=== PATIENT | male | born 1995 | race Hispanic/Latino ===

== ENCOUNTER 2021-01-10 13:05 | Emergency (ER) | payer OTHER, SELFPAY ==
--- NOTE | ~2021-01-10 | CT_ITS ---
EXAMINATION: CT abdomen pelvis w con DATE: 01/10/2021 18:09 INDICATION: Generalized abdominal pain. TECHNIQUE: Computed tomography (CT) of the abdomen and pelvis was performed with 100 mL Omnipaque 350 intravenous contrast. Automated exposure control and iterative reconstruction technique were employe d. The dose-length product was 1025.59 mGy-cm. COMPARISON: None. FINDINGS: The visualized portions of the lung bases are clear without pneumonia or pleural effusion. The heart size is normal. No pericardial effusion. There is diffuse hepatic steatosis. The gallbladde r, spleen, pancreas, adrenal glands, and kidneys are normal. There is diverticulosis of the colon wit hout evidence of diverticulitis. No dilated loops of bowel. The appendix is normal. There are no path ologically enlarged lymph nodes. There is no free intraperitoneal fluid. The bones are unremarkable. IMPRESSION: 1. Diffuse hepatic steatosis. Reviewed, dictated and finalized at location A.
[2021-01-10 13:34] VITALS: BP 149/81; PULSE 99; RESP 18; TEMP 36.1; O2SAT 98
[2021-01-10 13:48] LABS: Basophils Absolute Auto 0.1 K/mm3 (0.0-0.1); Basophils Percent Auto 0.9 % (0.2-1.2); Eosinophils Absolute Auto 0.2 K/mm3 (0-0.3); Eosinophils Percent Auto 1.7 % (0-4.4); Hemoglobin 15.6 g/dL (14.0-18.0); Immature Granulocyte Absolute 0.06 K/mm3 (0.00-0.031); Immature Granulocyte Percent A 0.5 % (0-0.5); Lymphocytes Absolute Auto 2.23 K/mm3 (0.9-3.2); Lymphocytes Percent Auto 17.7 % (18.3-44.2); Mean Corpuscular HGB Conc 34.7 g/dl (32-36); Mean Corpuscular Hemoglobin 30.9 pg (26-34); Mean Corpuscular Volume 89.1 fl (80-100); Mean Platelet Volume 10.1 fl (7.4-10.4); Monocytes Absolute Auto 0.6 K/mm3 (0.1-0.6); Monocytes Percent Auto 4.4 % (2.6-8.5); Neutrophils Absolute Auto 9.4 K/mm3 (1.3-6.7); Neutrophils Percent Auto 74.8 % (45.5-73.1); Platelet Count Result 290 k/mm3 (150-375); Red Blood Count 5.05 M/mm3 (4.6-6.20); Red Cell Distribution Width 12.1 % (11.5-14.5); White Blood Count 12.6 K/mm3 (4.5-10.0)
[2021-01-10 14:01] LABS: Alanine Aminotransferase 92 U/L (4-50); Albumin Level 4.9 g/dL (3.5-5.1); Alkaline Phosphatase 132 U/L (38-126); Anion Gap 13 mmol/L (8-16); Aspartate Amino Transferase 72 U/L (17-59); Bilirubin,Total 1.1 mg/dL (0.2-1.3); Blood Urea Nitrogen 14 mg/dL (9-20); Calcium 9.6 mg/dL (8.4-10.2); Carbon Dioxide 27 mmol/L (22-30); Chloride 103 mmol/L (98-107); Estimated CRCL calculation 187 ml/min; Estimated Glomerular Filt Rate > 60; Glucose 133 mg/dL (75-110); Lipase 34 U/L (23-300); Sodium 143 mmol/L (137-145)
[2021-01-10 17:16] VITALS: BP 143/104; PULSE 103; RESP 20; O2SAT 100
[2021-01-10 17:28] LABS: Add Urine Microscopic? YES; Appearance Urine Clear (Clear); Bacteria Urine Trace /hpf; Bilirubin Urine 1+ (Negative); Blood Urine Negative (Negative); Color Urine Amber (Yellow); Glucose Urine UA Negative (Negative); Ketones Urine Trace mg/dL (Negative); Leukocyte Esterase Ur Negative LEU/UL (Negative); Mucus Urine Heavy /lpf; Nitrate Urine Negative (Negative); Protein Urine 3+ mg/dL (Negative); WBC Urine 0-3 /hpf
[2021-01-10 17:34] LABS: Specific Grav Ur 1.032 (1.001-1.035)
--- NOTE | 2021-01-10 17:37 | ED.NAVMDI ---
HPI - Nausea/Vomiting/Diarrhea General Chief complaint: Nausea/Vomiting/Diarrhea Stated complaint: rash, posion ermias, nausea Time Seen by Provider: 01/10/21 17:15 Source: patient and RN notes reviewed Mode of arrival: ambulatory Limitations: no limitations History of Present Illness HPI Narrative: Patient is 25 years old male presents with nausea, frequent vomiting started early this morning with abdominal soreness. Patient denies any fever, chills, diarrhea, having similar symptoms in the past. Patient also been working in the yard yesterday with itching skin rash, similar symptoms secondary to poison ermias. Patient denies any fever, chest pain or shortness of breath. Related Data Allergies Allergy/AdvReac Type Severity Reaction Status Date / Time No Known Allergies Allergy Verified 01/10/21 17:18 Review of Systems Review of Systems: Narrative: CONSTITUTIONAL: Denies fever, chills, or sweats. EYES: Denies visual changes, redness, or discharge. ENT: Denies rhinorrhea, congestion, sore throat, or otalgia. CARDIOVASCULAR: Denies chest pain, palpitations, or edema. RESPIRATORY: Denies cough or dyspnea. GASTROINTESTINAL: Denies abdominal pain, nausea, vomiting, or diarrhea. GENITOURINARY: Denies dysuria or hematuria. SKIN: Denies rash or itching. MUSCULOSKELETAL: Denies back pain, joint pain, or myalgia. NEUROLOGIC: Denies headache, numbness, or weakness. PSYCHIATRIC: Denies anxiety or depression. Exam Narrative: Exam Narrative: General appearance: Well-developed, well-nourished Skin: Normal color, scattered hives Head: Normocephalic, nontraumatic Eyes: Clear conjunctiva ENT: Oropharynx normal, ears normal, nose normal Neck: Supple, nontender Chest and respiratory: Airway patent, no respiratory distress, no accessory muscle use Heart: Regular rate/rhythm Abdomen: Soft, mild diffuse tenderness, no organomegaly, quiet bowel sounds Vascular: Normal peripheral pulses, normal capillary refill. Musculoskeletal: Normal range of motion, nontender back Neurologic: Alert and oriented ?3, [employer] is normal as tested, no gross motor deficit Course Course Emergency Course: Stable Vital Signs Vital signs: Vital Signs Temperature 36.1 C L 01/10/21 13:34 Pulse Rate 99 01/10/21 13:34 Respiratory Rate 18 01/10/21 13:34 Blood Pressure 149/81 H 01/10/21 13:34 Pulse Oximetry 98 01/10/21 13:34 Temperature 36.1 C L 01/10/21 13:34 Pulse Rate 103 H 01/10/21 17:16 Respiratory Rate 20 01/10/21 17:16 Blood Pressure 143/104 H 01/10/21 17:16 Pulse Oximetry 100 01/10/21 17:16 MDM - Nausea/Vomiting/Diarrhea MDM Narrative Medical decision making narrative: Abdominal pain, poison ermias exposure, Labs, CT abdomen pelvis with IV contrast, IV fluid ordered. Further plan to follow Differential Diagnosis Differential diagnosis: Likely food poisoning, gastroenteritis and dehydration Lab Data Result diagrams: 01/10/21 13:42 01/10/21 13:42 Labs: Lab Results 01/10/21 01/10/21 01/10/21 Range/Units 13:42 13:42 17:18 WBC 12.6 H (4.5-10.0) K/mm3 RBC 5.05 (4.6-6.20) M/mm3 Hgb 15.6 (14.0-18.0) g/dL Hct 45.0 (42.0-52.0) % MCV 89.1 (80-100) fl MCH 30.9 (26-34) pg MCHC 34.7 (32-36) g/dl RDW 12.1 (11.5-14.5) % Plt Count 290 (150-375) k/mm3 MPV 10.1 (7.4-10.4) fl Immature Gran % (Auto) 0.5 (0-0.5) % Neut % (Auto) 74.8 H (45.5-73.1) % Lymph % (Auto) 17.7 L (18.3-44.2) % Charles % (Auto) 4.4 (2.6-8.5) % Eos % (Auto) 1.7 (0-4.4) % Baso % (Auto) 0.9 (0.2-1.2) % Lymph # (Auto) 2.23 (0.9-3.2) K/mm3 Charles # (Auto) 0.6 (0.1-0.6) K/mm3 Eos
[2021-01-10] MEDS: SODIUM CHLORIDE 0.9% IV 1,000 ML 999 ML IV CONT (17:48)
== END 2021-01-10 19:06 | disposition home or self-care (01) ==
PROVIDERS: Emergency Provider Emergency Medicine
DX: L23.7 Allergic contact dermatitis due to plants, except food (principal); R11.2 Nausea with vomiting, unspecified; R19.7 Diarrhea, unspecified
CPT/HCPCS: 36415; 74177; 80053; 81001; 83690; 85025; 96360; 99284; J7030; Q9967

== ENCOUNTER 2025-04-09 21:46 | Inpatient (IN) | payer OTHER, SELFPAY ==
[2025-04-09] VITALS (12 sets, daily range): BP systolic 116–155; BP diastolic 80–102; PULSE 90–106; RESP 17–30; TEMP 36.4; O2SAT 97–100
--- NOTE | ~2025-04-09 | CT_ITS ---
EXAMINATION: CT abdomen pelvis w con DATE: 04/10/2025 00:34 INDICATION: Abdominal pain. Abnormal liver function tests. Nausea and vomiting. TECHNIQUE: Computed tomography (CT) of the abdomen and pelvis was performed with 100 mL Omnipaque 350 intravenous contrast. Automated exposure control and iterative reconstruction technique were employed. The dose-length product was 1230.58 mGy-cm. COMPARISON: CT abdomen and pelvis 01/10/2021 FINDINGS: The visualized portions of lung bases demonstrate mild atelectasis. No pleural effusion. The heart size is normal. No pericardial effusion. The liver demonstrates diffuse steatosis and surface nodularity, consistent with cirrhosis. There is a periumbilical portacaval shunt. The gallbladder is distended. The spleen, pancreas, adrenal glands, and kidneys are normal. There is diverticulosis of the colon without evidence of diverticulitis. There are no dilated loops of bowel. The appendix is normal. There are no pathologically enlarged lymph nodes. There is trace pelvic ascites. 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 There is mild thoracic spondylosis. IMPRESSION: 1. Cirrhosis of the liver with portal venous hypertension. 2. Gallbladder distention, which may be secondary to fasting. Correlate with physical exam to exclude acute cholecystitis. Reviewed, dictated and finalized at location E. IMPRESSION: 1. Cirrhosis of the liver with portal venous hypertension. 2. Gallbladder distention, which may be secondary to fasting. Correlate with ph ysical exam to exclude acute cholecystitis.
--- OUTSIDE RECORDS SUMMARY | 2025-04-09 21:48 | XMS_ITS | Clinical Summary ---
Author Organization [facility] Address [address] [place] [address] Care Team Providers Care Language Instructor Name Role Phone Unavailable Primary Care Provider Unavailabl e Source Comments [facility],non-owned Affiliates and Associated Physician Practices is amultiple site organization consisting of ambulatory clinics and hospital sitesin [place], [place], [place] and [place]. This disclosure is being madepursuant to the Care Everywhere program and may not contain all information available regarding this patient. Last updated 18.[facility] Allergies No known active allergies Medications * Be aware that medications may not be up to date on this document. Alwaysverify current medications with the patient. oxyCODONE, immediate release, 10 MG tablet Take 1 tablet by mouth every 4 hours as needed 5 tablet 8 Active Additional Information Patient not taking.Reported on 01/24/2019 docusate sodium (COLACE) 100 MG capsule Take 1 capsule by mouth once daily , can stop if no longer taking Roxicodone (oxycodone) 5 capsule 8 Active Additional Information Patient not taking.Reported on 01/24/2019 diphenhydrAMINE (BENADRYL) 25 MG capsule Take 1 capsule by mouth every 4 hours as needed for Itching 18 capsule 9 Active famotidine (PEPCID) 20 MG tablet Take 1 (one) tablet by mouth once daily 30 tablet 1 2 Active ondansetron, disintegrating, (ZOFRAN ODT) 4 MG tablet Take 1 (one) tablet by mouth every 6 hours as needed for Nausea/Vomiting Allow tablet to dissolve on the tongue 30 tablet 2 Active Active Problems Patient Care Coordination No te Formatting of this note migh t be different from the original. *Miguel's family needs a Telugu-speaking correctional corporal for each visit* Miguel's cell: [phone] Miguel's father's cell at [phone] Patient has signed HIPAA release of information for parents/self. Problem Noted Date Diagnosed Date Intractable pain 12/06/2017 Assessment & Plan (12/08/2017 10:21 AM CDT): Assessment: Miguel is a 22 y.o. history of germ cell testicular cancer s/p chemo who presents for acute onset of bilateral lower leg pain. Etiology unclear at this time. Xray does not show any fractures or signs of metastasis. Afebrile and WBC only slightly elevated so osteomyelitis is less likely. FEN/GI: - discontinue IV fluids - Regular diet - Strict I/Os - Daily weights - Colace BID, PRN miralax and senna Heme/Onc: - Transfusion parameters: - Transfuse pRBCs for Hgb < 7 or < 8 with symptoms. - Transfuse platelets for plt < 10K or < 20K with symptoms CV: - Vitals q4hrs - If SBP persistently > 160, assess for pain and consider PRN isradipine - If SBP persistently < 90, assess and consider fluid bolus Resp: - Stable on room air - Pulse ox ID: - If febrile T 100.4 x2 or >101 x1, assess for signs of inflammation/infection - If HD unstable, consider a fluid bolus Endo: - Low vitamin D - Received Replesta 150,000u Neuro/Pain: - Motrin 800 mg q6hr - Will transition from COLLAR BASTER JUMPBASTING to oral oxycodone Access: PIV Assessment & Plan (12/08/2017 9:13 AM CDT): Assessment: Miguel Guan is a 22 year old with 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 The most likely diagnosis for his leg pain is a musculoskeletal etiology such as a severe muscle strain in the gastrocnemius as he complains of calf pain. In addition, he has a recent history of increased walking and additional pain with dorsiflexion of the foot. A case of anterior lateral tibial stress syndrome is less likely as this would usually happen with excessive repetitive movements, like jumping, but his obesity could have exacerbated the condition. In addition, the fact that he says his left leg pain has improved with rest is evidence of a MSK etiology. Peripheral vascular disease or arterial hypoperfusion is a less likely diagnosis with his physcial exam findings (extremities well perfused, acyanotic, good pedal pulses) and negative ultrasound findings. A stress fracture was considered because of his obesity and low vitamin D levels, however the tibia/fibula Xray ruled this diagnosis out. In addition, osteoarthritis is less likely as he does not complain of specifically joint pain and there was no joint space narrowing on xray. Rhabdomyolysis is less likely has he does not have dark urine, fever, or elevated CK. Osteomyelitis is less likely because of his negative xray, lack of fever, and lack of point tenderness. Metastasis or recurrence of his cancer is less likely with the acute onset of the pain and normal AFP, beta hcg, and LDH. His transaminitis is likely from fatty liver disease as the ALT is more elevated than the AST. It is less likely hepatitis as the Hepatitis B and C panels were negative. It is less likely from his recent partying and alcohol use last weekend as the AST would have been more elevated than ALT in acute alcohol abuse. Plan: MSK -Right tibia and fibula xray had negative findings -Arterial and venous US had negative findings -Encourage ambulation -Consider icing and heating regimen 3x a day FEN/GI: -MIVF D5 + 1/2 NS with KCl @ 145 mL/hr -Reg diet -I/Os -Bowel regimen -Coalace BID -Senna PRN -Miralax PRN -Repeat LFTs tomorrow Heme/Onc: -Transfusion parameters: -If Hg <7 or <8 with symptoms, transfuse 10 mL/kg of pRBCs -F/u with Dr. Ventura outpatient on 02/18 CV: -Vitals q4h -SBP >160 assess for pain and PRN isradipine -SBP <90 assess and consider fluid bolus Resp: -RALPH -Continuous pulse ox ID: -Fever plan: -If >101 or 2x >100.4 assess pain site for erythema and tenderness -If HD unstable, consider fluid bolus Neuro/Pain: -Dilaudid COLLAR BASTER JUMPBASTING -150 basal, 150 push, 10 min lockout -Has pressed considerable number of times -wean basal to 100 as the etiology of the pain is likely inflammatory -Narcan drip COLLAR BASTER JUMPBASTING -Motrin 800 mg PO q6 -optimize, consider naproxen Endo: -Replesta 150,000 u administered -F/u vitamin D level in 4-6 weeks Assessment & Plan (12/07/2017 11:50 AM CDT): Assessment: Miguel is a 22 y.o. history of germ cell testicular cancer s/p chemo who presents for acute onset of bilateral lower leg pain. Etiology unclear at this time. Xray does not show any fractures or signs of metastasis. Afebrile and WBC only slightly elevated so osteomyelitis is less likely. FEN/GI: - IV fluids at 125ml/hr - Regular diet - Strict I/Os - Daily weights - Start on colace BID, PRN miralax and senna Heme/Onc: - Transfusion parameters: - Transfuse pRBCs for Hgb < 7 or < 8 with symptoms. - Transfuse platelets for plt < 10K or < 20K with symptoms CV: - Vitals q4hrs - If SBP persistently > 140, assess for pain and consider PRN isradipine - If SBP persistently < 90, assess and consider fluid bolus Resp: - Stable on room air - Pulse ox ID: - If febrile T 100.4 x2 or >101 x1, assess for signs of inflammation/infection - If HD unstable, consider a fluid bolus Endo: - Low vitamin D - Will give Replesta 150,000u Neuro/Pain: - Motrin 800 mg q6hr - Dilaudid COLLAR BASTER JUMPBASTING with basal 200mcg and 100mcg bolus with 10 minute lockout, plan to wean COLLAR BASTER JUMPBASTING today Access: PIV Assessment & Plan (12/07/2017 2:57 PM CDT): Assessment: Miguel Guan is a 22 year old with 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 The most likely diagnosis for his leg pain is a musculoskeletal etiology such as anterior tibial tendinopathy as he has a recent history of increased walking and additional pain with dorsiflexion of the foot. In addition, he said the pain was along his leg, where the anterior tibial muscle lies. Peripheral vascular disease or arterial hypoperfusion is considered because of his obesity and pain with walking, however his strong pedal pulses, acyanotic feet with adequate perfusion make this diagnosis less likely. A stress fracture was considered because of his obesity and low vitamin D levels, however the tibia/fibula Xray ruled this diagnosis out. In addition, osteoarthritis is less likely as he does not complain of specifically joint pain and there was no joint space narrowing on xray. Rhabdomyolysis is less likely has he does not have dark urine, fever, or elevated CK. Osteomyelitis is less likely because of his negative xray, lack of fever, and lack of point tenderness. Metastasis or recurrence of his cancer is less likely with the acute onset of the pain and normal AFP, beta hcg, and LDH. His elevated liver enzymes are likely from fatty liver disease as the ALT is more elevated than the AST. It is less likely hepatitis as the Hepatitis B and C panels were negative. It is less likely from his recent partying last weekend as the AST would have been more elevated than ALT in acute alcohol abuse. Plan: MSK -Right tibia and fibula xray had negative findings -Arterial and venous US to r/o peripheral vascular etiology -Encourage ambulation FEN/GI: -MIVF D5 + 1/2 NS with KCl @ 145 mL/hr -Reg diet -I/Os -Start bowel regimen -Coalace BID -Senna PRN -Miralax PRN Heme/Onc: -F/u with Dr. Ventura outpatient on 02/18 CV: -Vitals q4h -SBP >160 assess for pain and PRN isradipine -SBP <90 assess and consider fluid bolus Resp: -RALPH -Continuous pulse ox ID: -Fever plan: -If >101 or 2x >100.4 assess pain site for erythema and tenderness Neuro/Pain: -Dilaudid COLLAR BASTER JUMPBASTING -200 basal, 150 push, 10 min lockout -consider weaning basal if he doesn't press COLLAR BASTER JUMPBASTING in an hour -Narcan drip COLLAR BASTER JUMPBASTING -Motrin 800 mg PO q6 Endo: -Replesta 150,000 u once Assessment & Plan (12/07/2017 12:38 AM CDT): Assessment: Miguel is a 22 y.o. history of germ cell testicular cancer s/p chemo who presents for acute onset of bilateral lower leg pain. Etiology unclear at this time. Rhabdomyolysis vs trauma vs metastasis vs osteomyelitis. Patient admitted for pain management and IVF. Plan: Admit to [facility] - Dr. Dash FEN/GI: - IV fluids at 125ml/hr - Regular diet - Strict I/Os - Daily weights Heme/Onc: - Transfusion parameters: - Transfuse pRBCs for Hgb < 7 or < 8 with symptoms. - Transfuse platelets for plt < 10K or < 20K with symptoms CV: - Vitals q4hrs - If SBP persistently > 140, assess for pain and consider PRN isradipine - If SBP persistently < 90, assess and consider fluid bolus Resp: - Stable on room air - Pulse ox ID: - If febrile T 100.4 x2 or >101 x1, will draw blood culture and start Rocephin. - If HD unstable, will add vanc and consider a fluid bolus - Consider imaging for legs in AM Neuro/Pain: - Toradol 30mg q6hr prn moderate pain - Dilaudid 2mg q2 hours prn severe pain Access: PIV Malignant neoplasm of other and unspecified test is 10/20/2014 Germ cell carcinoma of testicle 07/13/2014 Assessment & Plan (12/08/2017 7:13 AM CDT): Assessment: Plan: Assessment & Plan (10/07/2014 5:45 PM CDT): Assessment: 19 yo with metastatic testicular tumor (s/p left orchiectomy) presenting with fever, headache, cough/SOB, dizziness, and fatigue. Febrile in ED with neutropenia (ANC 180 today), also anemic, now s/p 2x PRBC. CXR concerning for RUL pneumonia. Plan: FEN/GI: - Strict I/O - Regular diet - Maintenance IVF, D5 + 1/2NS + 20KCl @140ml/hr - home Pepcid 40 mg QHS - hypo-magnesemia: repeat Mg this afternoon 1.6, will increase Mag-ox to 800mg BID - Bowel regimen: home Senna-docusate prn - Antiemetics: Zofran 8 mg q8h, Ativan 1 mg q8h PRN, Benadryl 50 mg q6h PRN - CMP, Mg tomorrow morning Heme/Onc: - s/p PRBC x2 - Transfusion parameters: 1-2 units of PRBC's for Hgb <7 or <8 with symptoms, 1 unit of platelets for <10 or <20 with symptoms - Repeat CBC tomorrow morning CV: - Vitals q4h - CR monitor Resp: - Pulse oximetry - Incentive spirometry q2h while awake ID: - Ceftazidime 2000 mg q8h - Azithromycin 10 mg/kg daily for 3 days - Blood culture ngtd - Fever plan: repeat blood culture q24h, add vanc Pain: - home oxycodone 10 mg q4h PRN mild/moderate pain: held due to associated nausea - Morphine 5 mg q4h PRN: increase to q3h, if requiring more frequent - may give one time Tylenol overnight for breakthrough pain - no NSAID Assessment & Plan (09/29/2014 8:53 AM CDT): Assessment: 19 yo with metastatic testicular tumor (s/p left orchiectomy), here for scheduled chemotherapy, POG 9049, cycle #4, day 6. Plan: Heme/Onc: - Bleomycin: Day 1 - Etoposide: Days 1-5 - Cisplatin: Days 1-5 Pre-hydration: D5 + 1/2NS @500ml/hr Post-hydration: D5 + 1/2NS @270ml/hr until next chemo (or discharge) - Neulasta on Day 6 (> 24 hours post-chemo) FEN/GI: - Regular diet - Anti-emetics: Zofran 8mg IV/PO q8h, Decadron 6mg IV/PO q6h (12mg prior to chemo) Ativan 1mg IV/PO q8h prn, Benadryl 50mg IV/PO q6h prn, Emend 150mg IV (day 1) - hypo-magnesemia: home Mg supplement - daily BMP, Mg, Phos - strict I/O, weights BID (if weight > 107kg, 5% up from baseline, discuss with attending about Lasix) ID: - fever plan: get blood culture, start Rocephin (add vanc also if hemodynamically unstable) Assessment & Plan (09/27/2014 4:12 PM CDT): Assessment: 19 yo with metastatic testicular tumor (s/p left orchiectomy), here for scheduled chemotherapy, POG 9049, cycle #4, day 4. Plan: Heme/Onc: - Bleomycin: Day 1 - Etoposide: Days 1-5 - Cisplatin: Days 1-5 Pre-hydration: D5 + 1/2NS @500ml/hr Post-hydration: D5 + 1/2NS @270ml/hr until next chemo (or discharge) - Neulasta on Day 6 (> 24 hours post-chemo) - CBC repeat on 09/28 FEN/GI: - Regular diet - Anti-emetics: Zofran 8mg IV/PO q8h, Decadron 6mg IV/PO q6h (12mg prior to chemo) Ativan 1mg IV/PO q8h prn, Benadryl 50mg IV/PO q6h prn, Emend 150mg IV (day 1) - hypo-magnesemia: home Mg supplement - daily BMP, Mg, Phos - strict I/O, weights BID (if weight > 107kg, 5% up from baseline, discuss with attending about Lasix) ID: - fever plan: get blood culture, start Rocephin (add vanc also if hemodynamically unstable) Assessment & Plan (09/26/2014 2:42 PM CDT): Assessment: 19 yo with metastatic testicular tumor (s/p left orchiectomy), here for scheduled chemotherapy, POG 9049, cycle #4, day 3. Plan: Heme/Onc: - Bleomycin: Day 1 - Etoposide: Days 1-5 - Cisplatin: Days 1-5 Pre-hydration: D5 + 1/2NS @500ml/hr Post-hydration: D5 + 1/2NS @270ml/hr until next chemo (or discharge) - Neulasta on Day 6 (> 24 hours post-chemo) - CBC repeat on 09/28 FEN/GI: - Regular diet - Anti-emetics: Zofran 8mg IV/PO q8h, Decadron 6mg IV/PO q6h (12mg prior to chemo) Ativan 1mg IV/PO q8h prn, Benadryl 50mg IV/PO q6h prn, Emend 150mg IV (day 1) - hypo-magnesemia: home Mg supplement - daily BMP, Mg, Phos - strict I/O, weights BID (if weight > 107kg, 5% up from baseline, discuss with attending about Lasix) ID: - fever plan: get blood culture, start Rocephin (add vanc also if hemodynamically unstable) Assessment & Plan (09/24/2014 7:03 PM CDT): Assessment: 19 yo with metastatic testicular tumor (s/p left orchiectomy), here for scheduled chemotherapy, POG 9049, cycle #4. Plan: Heme/Onc: - Bleomycin: Day 1 - Etoposide: Days 1-5 - Cisplatin: Days 1-5 Pre-hydration: D5 + 1/2NS @500ml/hr Post-hydration: D5 + 1/2NS @270ml/hr until next chemo (or discharge) - Neulasta on Day 6 (> 24 hours post-chemo) - CBC baseline at admission and prior to dc. FEN/GI: - Regular diet - Anti-emetics: Zofran 8mg IV/PO q8h, Decadron 6mg IV/PO q6h (12mg prior to chemo) Ativan 1mg IV/PO q8h prn, Benadryl 50mg IV/PO q6h prn, Emend 150mg IV (day 1) - hypo-magnesemia: home Mg supplement - strict I/O, weights BID ID: - fever plan: get blood culture, start Rocephin (add vanc also if hemodynamically unstable) Assessment & Plan (09/07/2014 10:56 AM ORTHOTICS PROSTHETICS ASSISTANT): Assessment Miguel Guan is a 18 y.o. 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 Doing well since last cycle. Here for admission for course #3 Plan Germ Cell Tumor: Day 5 of 5 PEB therapy Plan: - Admission for 5 days of chemo per POG #9049--->Bleomycin day 1, Etoposide/Cisplatin days 1-5 per chemo orders. -neulasta on day 6 -audiogram done and unchanged FEN: Plan: -IVF per protocol -regular diet -antiemetics: zofran, decadron, ativan, benadryl, and fosaprepitant per orders -weigh twice daily -if weight >105 kg, give 40 lasix -strict I&Os Heme: - Plan: Transfusion guidelines: --prbc for Hb <7 (<8 with symptoms) --platelets for plt count <10,000 (<20,000 with bleeding) -check CBC prior to discharge in case transfusion is warranted Cardiovascular/Respiratory: Plan: monitoring q 4 vitals Neuro/Pain: Plan: Oxycodone as needed for pain Disposition: Home tomorrow following 5th dose tonight and post-hydration. Pt will administer neupogen at home. Assessment & Plan (09/05/2014 10:36 AM ORTHOTICS PROSTHETICS ASSISTANT): Assessment Miguel Guan is a 18 y.o. 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 Doing well since last cycle. Here for admission for course #3 Plan Germ Cell Tumor: Day 2 of 5 PEB therapy Plan: - Admission for 5 days of chemo per POG #9049--->Bleomycin day 1 only, Etoposide/Cisplatin days 1-5 per chemo orders. -neulasta on day 6 -audiogram done and unchanged FEN: Plan: -IVF per protocol -regular diet -antiemetics: zofran, decadron, ativan, benadryl, and fosaprepitant per orders -weigh twice daily -if weight >105 kg, give 40 lasix -strict I&Os Heme: - Plan: Transfusion guidelines: --prbc for Hb <7 (<8 with symptoms) --platelets for plt count <10,000 (<20,000 with bleeding) -check CBC prior to discharge in case transfusion is warranted Cardiovascular/Respiratory: Plan: monitoring q 4 vitals Neuro/Pain: Plan: Oxycodone as needed for pain Assessment & Plan (09/08/2014 7:38 AM ORTHOTICS PROSTHETICS ASSISTANT): Assessment: 18 year old with metastatic testicular tumor(mixed germ cell Ca), sp left orciectomy, admitted for scheduled chemotherapy, PEB cycle #3. Completed the cycle yesterday. Tolerated well. No adverse effects. Plan: GIFEN: Reg diet. Dc fluids. Zofran, decadron- scheduled, Ativan and benadryl prn. Strict I/O. Weights BID Heme/Onc: Completed- Bleomycin X1 day, Etoposide D5/5 and Cisplatin D5/5. CBC looks good. No need for transfusions. Will get Neupogen today. Neuro: Oxycodone prn for pain. Assessment & Plan (08/18/2014 8:59 AM ORTHOTICS PROSTHETICS ASSISTANT): Germ cell carcinoma of testicle Assessment: Miguel is a 18 year old M with diagnosis of mixed germ cell tumor s/p radical left orchiectomy and first cycle of PEB. He is currently receiving cycle two of PEB, day 4. Clinically stable, good po tolerance. Continues to c/o persistent SALAZAR since admission, not responding to treatment, but tolerable. Will continue to observe. Weight slightly up today, but maintaining excellent urine output. Heme/Onc PEB, Cycle 2 Day 4 Bleomycin - completed Continue Etoposide and Cisplatin per protocol - Transfusion Parameters: PRBC for Hgb <8 (<7 with symptoms) Platelets for platelets count <10 (<20 with symptoms) - Home health orders for neupogen in prep for SC harvest ([facility] to see pt again and Wed) - CBC scheduled for Wednesday prior to d/c FEN/GI - Cisplatin prehydration: D5 1/2NS + 20g/L mannitol at 50ml/hr over two hours - Cisplatin posthydration: D5 1/2NS +20 meq/L KCL + 150 meq/L MgSO4 at 270 ml/hr until two hours prior to cisplatin - Regular Diet - Antiemetics - Zofran 8 mg q8h, Decadron 6 mg IV or po q6h with meals, Diphenhydramine PRN, Ativan 1 mg iv or po q8h prn - Famotidine 40 mg qhs for ulcer prophylaxis - Weight BID - Strict I/Os - Colace 50 mg po qd or Senna 8.6 mg po qd prn for consitpation ID - Fever Plan Blood culture from all lumens + ceftazidime 1g IV q8h If clinically unstable, add vancomycin CV/Resp - Vital signs q4 with pulse ox Nuro/Pain - APAP 1,000 mg po q6h PRN for pain/SALAZAR - Oxycodone 5 mg po PRN for pain/SALAZAR - Monitor I/Os Sofi Mando [employer], MS-3 Assessment & Plan (08/17/2014 6:32 PM ORTHOTICS PROSTHETICS ASSISTANT): Assessment: 18 year old male with 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 Day four of chemotherapy today. Has tolerated chemo well so farl, he remains clinically stable and without complaints. Weight stable. Continues to have headaches; currently not debilitating so we will continue to observe. Plan: Heme/Onc - etoposide 100mg/m2 on day 1-5 - cisplatin 20mg/m2 + mannitol 3gm/m2 on days 1-5 - CBC prior to discharge - will need Neupogen (5mcg/kg x 5 days followed by 10mcg/kg x 5 days) on discharge FEN/GI - 2 hours prior to cisplatin - D5 1/2NS + 20g/L mannitol at 50 ml/m2/hr until cisplatin - following cisplatin - D5 1/2NS+20meq/L KCl + 150mg/L MgSO4 at 270 ml/m2/hr until 2 hours prior cisplatin - anti emesis regimen with Zofran, Decdron, Ativan, Benadryl, Fosaprepitant per protocol - twice daily weights, if achieves more than 5% weight gain from admission will consider one time dose of furosemide - Strict I/Os - Famotidine 40mg PO at bedtime - Colace 50mg PO qday - senna 8.6mg PO qday Pain/Nuro - acetaminophen 650mg PO q6h PRN pain - oxycodone 5mg PO qh PRN pain ID - fever plan; obtain blood culture and start ceftazidime, adding vancomycin for hemodynamic instability Card/Resp - Vitals q 4h with pulse oximetry Assessment & Plan (08/17/2014 7:02 AM ORTHOTICS PROSTHETICS ASSISTANT): Assessment: 18 year old male with diagnosis of mixed germ cell tumor s/p radical left orchiectomy on 07/05/2014 and first cycle of PEB 07/23/2014. Currently receiving cycle two of PEB, day 5. Clinically stable, tolerating po without nausea/emesis. Weight stable; maintains good urine output. Plan: Heme/Onc PEB, Cycle 2 Day 5 Bleomycin - completed Last doses of Etoposide and Cisplatin today per protocol - Transfusion Parameters: PRBC for Hgb <8 (<7 with symptoms) Platelets for platelets count <10 (<20 with symptoms) - Home health orders for neupogen prior to SC harvest ([facility] to see pt for training today) - Check CBC prior to d/c FEN/GI - Cisplatin prehydration: D5 1/2NS + 20g/L mannitol at 50ml/hr over two hours - Cisplatin posthydration: D5 1/2NS +20 meq/L KCL + 150 meq/L MgSO4 at 270 ml/hr until two hours prior to cisplatin xxx and continue until discharge - Regular Diet - Antiemetics - Zofran 8 mg q8h, Decadron 6 mg IV or po q6h with meals, Diphenhydramine PRN, Ativan 1 mg iv or po q8h prn - Famotidine 40 mg qhs for ulcer prophylaxis - Weight BID - Strict I/Os - Colace 50mg po qd or Senna 8.6mg po qd prn for consitpation ID - Fever Plan Blood culture from all lumens + ceftazidime 1g IV q8h If clinically unstable, add vancomycin CV/Resp - Vital signs q4 with pulse ox Nuro/Pain - APAP 1,000 mg q6h PRN for pain/SALAZAR - Oxycodone 5 mg PRN for pain - Monitor I/Os Assessment & Plan (08/16/2014 1:08 PM ORTHOTICS PROSTHETICS ASSISTANT): Assessment: 18 year old male with 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 Day four of chemotherapy today. Has tolerated chemo well so farl, he remains clinically stable and without complaints. Weight stable. Continues to have headaches; currently not debilitating so we will continue to observe. Plan: Heme/Onc - bleomycin 15 units/m2 on day 1, completed - etoposide 100mg/m2 on day 1-5 - cisplatin 20mg/m2 + mannitol 3gm/m2 on days 1-5 - CBC prior to discharge - will need Neupogen (5mcg/kg x 5 days followed by 10mcg/kg x 5 days) on discharge FEN/GI - 2 hours prior to cisplatin - D5 1/2NS + 20g/L mannitol at 50 ml/m2/hr until cisplatin - following cisplatin - D5 1/2NS+20meq/L KCl + 150mg/L MgSO4 at 270 ml/m2/hr until 2 hours prior cisplatin - anti emesis regimen with Zofran, Decdron, Ativan, Benadryl, Fosaprepitant per protocol - twice daily weights, if achieves more than 5% weight gain from admission will consider one time dose of furosemide - Strict I/Os - Famotidine 40mg PO at bedtime - Colace 50mg PO qday - senna 8.6mg PO qday Pain/Nuro - acetaminophen 650mg PO q6h PRN pain - oxycodone 5mg PO qh PRN pain ID - fever plan; obtain blood culture and start ceftazidime, adding vancomycin for hemodynamic instability Card/Resp - Vitals q 4h with pulse oximetry Assessment & Plan (08/15/2014 1:27 PM ORTHOTICS PROSTHETICS ASSISTANT): Assessment: 18 year old male with 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 Tolerated second day of chemo well, he remains clinically stable and without complaints. Weight stable. Continues to have headaches; currently not debilitating so we will continue to observe. Plan: Heme/Onc - bleomycin 15 units/m2 on day 1, completed - etoposide 100mg/m2 on day 1-5 - cisplatin 20mg/m2 + mannitol 3gm/m2 on days 1-5 - CBC prior to discharge - will need Neupogen (5mcg/kg x 5 days followed by 10mcg/kg x 5 days) on discharge FEN/GI - 2 hours prior to cisplatin - D5 1/2NS + 20g/L mannitol at 50 ml/m2/hr until cisplatin - following cisplatin - D5 1/2NS+20meq/L KCl + 150mg/L MgSO4 at 270 ml/m2/hr until 2 hours prior cisplatin - anti emesis regimen with Zofran, Decdron, Ativan, Benadryl, Fosaprepitant per protocol - twice daily weights, if achieves more than 5% weight gain from admission will consider one time dose of furosemide - Strict I/Os - Famotidine 40mg PO at bedtime - Colace 50mg PO qday - senna 8.6mg PO qday Pain/Nuro - acetaminophen 650mg PO q6h PRN pain - oxycodone 5mg PO qh PRN pain ID - fever plan; obtain blood culture and start ceftazidime, adding vancomycin for hemodynamic instability Card/Resp - Vitals q 4h with pulse oximetry Assessment & Plan (08/15/2014 6:58 AM ORTHOTICS PROSTHETICS ASSISTANT): Assessment: 18 year old male with diagnosis of mixed germ cell tumor s/p radical left orchiectomy on 07/05/2014 and first cycle of PEB 07/23/2014. Currently receiving cycle two of PEB, day 3. Clinically stable, tolerating po without nausea/emesis. Weight slightly up today, but maintains good urine output. Plan: Heme/Onc PEB, Cycle 2 Day 3 Bleomycin - completed Continue Etoposide and Cisplatin per protocol - Transfusion Parameters: PRBC for Hgb <8 (<7 with symptoms) Platelets for platelets count <10 (<20 with symptoms) - Home health orders for neupogen prior to SC harvest ([facility] to see pt today) - Check CBC prior to d/c FEN/GI - Cisplatin prehydration: D5 1/2NS + 20g/L mannitol at 50ml/hr over two hours - Cisplatin posthydration: D5 1/2NS +20 meq/L KCL + 150 meq/L MgSO4 at 270 ml/hr until two hours prior to cisplatin - Regular Diet - Antiemetics - Zofran 8 mg q8h, Decadron 6 mg IV or po q6h with meals, Diphenhydramine PRN, Ativan 1 mg iv or po q8h prn - Famotidine 40 mg qhs for ulcer prophylaxis - Weight BID - Strict I/Os - Colace 50mg po qd or Senna 8.6mg po qd prn for consitpation ID - Fever Plan Blood culture from all lumens + rocephin 50mg/kg daily If neutropenic, use ceftazidime 1g IV q8h If clinically unstable, add vancomycin CV/Resp - Vital signs q4 with pulse ox Nuro/Pain - APAP 1,000 mg q6h PRN for pain/SALAZAR - Oxycodone 5 mg PRN for pain - Monitor I/Os Assessment & Plan (08/14/2014 11:45 AM ORTHOTICS PROSTHETICS ASSISTANT): Assessment: 18 year old male with 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 Tolerated first day of chemo well, he remains clinically stable and without complaints. Weight increased from yesterday pre-admission, probably due to different scales being used; will use 102.6kg as admission weight. Plan: Heme/Onc - bleomycin 15 units/m2 on day 1, compelted - etoposide 100mg/m2 on day 1-5 - cisplatin 20mg/m2 + mannitol 3gm/m2 on days 1-5 - transfusion parameters: PRBC for Hgb <7(<8 w/ symptoms) platelets <10 (<20 w/ symptoms) - CBC prior to discharge - will need Neupogen (5mcg/kg x 5 days followed by 10mcg/kg x 5 days) on discharge FEN/GI - 2 hours prior to cisplatin - D5 1/2NS + 20g/L mannitol at 50 ml/m2/hr until cisplatin - following cisplatin - D5 1/2NS+20meq/L KCl + 150mg/L MgSO4 at 270 ml/m2/hr until 2 hours prior cisplatin - anti emesis regimen with Zofran, Decdron, Ativan, Benadryl, Fosaprepitant per protocol - twice daily weights - Strict I/Os - Famotidine 40mg PO at bedtime - Colace 50mg PO qday - senna 8.6mg PO qday Pain/Nuro - acetaminophen 650mg PO q6h PRN pain - oxycodone 5mg PO qh PRN pain ID - fever plan; obtain blood culture and start ceftriaxone, adding vancomycin for hemodynamic instability Card/Resp - Vitals q 4h with pulse oximetry Assessment & Plan (08/14/2014 7:12 AM ORTHOTICS PROSTHETICS ASSISTANT): Assessment:18 year old male with diagnosis of mixed germ cell tumor s/p radical left orchiectomy on 07/05/2014 and first cycle of PEB 07/23/2014. Currently receiving cycle two of PEB. Clinically stable, tolerating po, good urine output. Plan: Heme/Onc - Bleomycin, Etoposide, and Cisplatin per protocol - Transfusion Parameters: PRBC for Hgb <8 (<7 with symptoms) Platelets for platelets count <10 (<20 with symptoms) - Home health orders for neupogen prior to SC harvest ([facility] to see pt today) - Check CBC prior to d/c FEN/GI - Cisplatin prehydration: D5 1/2NS + 20g/L mannitol at 50ml/hr over two hours - Cisplaint posthydration: D5 1/2NS +20 meq/L KCL + 150 meq/L MgSO4 at 270 ml/hr until two hours prior to cisplatin - Regular Diet - Antiemetics - Famotidine qhs, Zofran q8h, Decadron with meals, Diphenhydramine PRN - Weight BID - Strict I/Os - Colace 50mg po qd, Senna 8.6mg po qd ID - Fever Plan Blood culture from all lumens + rocephin 50mg/kg daily If neutropenic, use ceftazidime 1g IV q8h If clinically unstable, add vancomycin CV/Resp - Vital signs q4 with pulse ox Nuro/Pain - APAP PRN for pain/SALAZAR - Oxycodone PRN for pain - Monitor I/Os Assessment & Plan (08/13/2014 4:10 PM ORTHOTICS PROSTHETICS ASSISTANT): Assessment: 18 year old male with 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 Clinically stable without complaints. Plan: Heme/Onc - bleomycin 15 units/m2 on day 1 - etoposide 100mg/m2 on day 1-5 - cisplatin 20mg/m2 + mannitol 3gm/m2 on days 1-5 - transfusion parameters: PRBC for Hgb <7(<8 w/ symptoms) platelets <10 (<20 w/ symptoms) - CBC prior to discharge - will need Neupogen (5mcg/kg x 5 days followed by 10mcg/kg x 5 days) on discharge FEN/GI - 2 hours prior to cisplatin - D5 1/2NS + 20g/L mannitol at 50 ml/hr until cisplatin - following cisplatin - D5 1/2NS+20meq/L KCl + 150mg/L MgSO4 at 270 ml/hr until 2 hours prior cisplatin - anti emesis regimen with Zofran, Decdron, Ativan, Benadryl, Fosaprepitant per protocol - twice daily weights - Strict I/Os - Famotidine 40mg PO at bedtime - Colace 50mg PO qday - senna 8.6mg PO qday Pain/Nuro - acetaminophen 650mg PO q6h PRN pain - oxycodone 5mg PO qh PRN pain ID - fever plan; obtain blood culture and start ceftriaxone, adding vancomycin for hemodynamic instability Card/Resp - Vitals q 4h with pulse oximetry Assessment & Plan (08/13/2014 3:30 PM ORTHOTICS PROSTHETICS ASSISTANT): Assessment:18 year old male with diagnosis of mixed germ cell tumor s/p radical left orchiectomy on 07/05/2014 and first cycle of PEB 07/23/2014. Admitted for scheduled chemotherapy, cycle two PEB. Clinically stable. Plan: FEN/GI - Prehydration: D5 1/2NS + 20g/L mannitol at 500 mL/m2 over two hours - Posthydration: D5 1/2NS +20 meq/L KCL at 125mL/m2/hr + 150meq/L MgSO4 - Regular Diet - Famotidine qhs - Zofran q8h - Diphenhydramine PRN - Weight BID - Monitor I/Os Heme/Onc - Bleomycin 15 units/m2 once - Etoposide 100mg/m2 daily x 5 - Cisplatin 20mg/m2 daily x 5 - Transfusion Parameters: Hgb <8 (<7 with symptoms), platelets <10 (<20 with symptoms) Endo - dexamethasone with meals ID Fever Plan: Blood culture from all lumens, Rocephin 50mg/kg daily CV/Resp - Vital signs q4 with pulse ox Nuro/Pain - APAP PRN for pain/SALAZAR - Monitor I/Os Assessment & Plan (07/28/2014 9:29 AM ORTHOTICS PROSTHETICS ASSISTANT): Assessment: 18 year old male with a mixed germ cell testicular tumor, embryonal predominant type s/p left orchidectomy (07/05/14) s/p right IJ dual lumen dialysis catheter placement (07/17/14) here for scheduled chemo - Cycle 1 of PEB. Planning for discharge today. Plan: Heme/Onc - Counts met for chemotherapy (07/23/14) -Cycle 1 Day 6 -Received Cisplatin and Etoposide plus pre/post-hydration overnight -Will continue treatment Wednesday07/30/14 -Requires supportive medications at home -Oxycodone 5 mg PRN -Zofran 8 mg q8h PRN -Consider switching to Reglan or Compazine if headache continues or worsens. No complaints of nausea since Day 2 of this cycle -Ativan 1 mg q8h PRN -Transfusion parameters: Hgb <7 (<8 with symptoms), Platelets <10 (<20 with symptoms) FEN/GI -Weight down today, no lasix required -Regular diet as tolerated -Famotidine 40 mg QHS -Antiemetic regimen -Decadron 6mg PO q6hr -Ondansetron 8 mg q8hr for nausea/vomiting -Diphenhydramine 50 mg q6hr PRN for nausea/vomiting -Lorazepam 1 mg q8hr PRN for nausea/vomiting -BID Weights -Strict I/O ID - No signs or symptoms of infection, no Neutropenia (ANC>5,000) -Fever plan: Blood cultures from all lumens, Rocephin 50 mg/kg daily CV/Res - Vital signs stable on room air -Vital signs q4hr with pulse ox Neuro/Pain - Currently reports headache -Will continue to monitor pain -No longer has numbness/tingling in arm -Acetaminophen 1,000 mg q6h PRN -Oxycodone 10 mg q4hr PRN for pain - History of multiple (4) sexual partners with inconsistent condom use -Urine GC/C PCR Negative Assessment & Plan (07/27/2014 11:25 AM ORTHOTICS PROSTHETICS ASSISTANT): Assessment:18 year old male with recent diagnosis of mixed germ cell tumor s/p radical left orchiectomy on (07/05/2014) and dialysis catheter placement (07/17/2014) admitted for scheduled chemotherapy, cycle one. Clinically stable. Plan: FEN/GI: - Prehydration: D5 1/2NS + 20g/L mannitol at 500 mL/m2 over two hours - Posthydration: D5 1/2NS +20 meq/L KCL at 125mL/m2/hr - Regular Diet - famotidine 40 mg q night - antiemetic regimen with - dexamethasone 6 mg q 6 h - ondansetron 8mg q 8 h - ativan 1mg q8 h PRN nausea/vomitting - diphenhydramine 50 mg q 6 h PRN nausea/vomitting - weight BID - strict I/Os Heme/Onc: Counts met for chemotherapy. - etoposide 100mg/m2 daily x 5 days - cisplatin 20mg/m2 daily x 5 days ID: no signs or symptoms of infection, no neutropenia - Fever plan: Blood culture from all lumens, rocephin CV/Resp: stable on room air - Vital signs q4 with Pulse ox : History of multiple sex partners with inconsistent condom use - Urine GC/Chlamidya amplified probe negative Neuro/Pain: complaints of headache, no significant distress. New numbness/tingling possibly side effect of chemotherapy, but no intervention needed at this time. - acetaminophen 1000 mg q6h PRN - oxycodone 10mg q4h PRN Assessment & Plan (07/27/2014 10:59 AM ORTHOTICS PROSTHETICS ASSISTANT): Assessment: 18 year old male with a mixed germ cell testicular tumor, embryonal predominant type s/p left orchidectomy (07/05/14) s/p right IJ dual lumen dialysis catheter placement (07/17/14) here for scheduled chemo - Cycle 1 of PEB. Plan: Heme/Onc - Counts met for chemotherapy (07/23/14) -Cycle 1 Day 5 -Cisplatin 20 mg/m2 -Etoposide 100 mg/m2 -Will continue treatment Wednesday -Requires supportive medications at home - Has prescription for Oxycodone 5 mg, Needs Zofran 8 mg q8h PRN and Ativan 1 mg q8h PRN -Transfusion parameters: Hgb <7 (<8 with symptoms), Platelets <10 (<20 with symptoms) FEN/GI -Prehydration: D5 1/2NS + 20 g/L mannitol at 500 mL/m2 over two hours -Posthydration: D5 1/2NS + 20 mEq/L KCl + 150 mEq/L MgSO4 at 125 mL/m2/hr -Weight down today -40 mg furosemide PRN if weight >5% admission weight -Regular diet as tolerated -Famotidine 40 mg QHS -Antiemetic regimen -Ondansetron 8 mg q8hr (Scheduled) for nausea/vomiting -Diphenhydramine 50 mg q6hr PRN for nausea/vomiting -Lorazepam 1 mg q8hr PRN for nausea/vomiting -BID Weights -Strict I/O ID - No signs or symptoms of infection, no Neutropenia (ANC>5,000) -Fever plan: Blood cultures from all lumens, Rocephin 50 mg/kg daily CV/Res - Vital signs stable on room air -Vital signs q4hr with pulse ox Neuro/Pain - Currently reports headache -Will continue to monitor pain -Acetaminophen PRN -Oxycodone 10 mg q4hr PRN for pain - History of multiple (4) sexual partners with inconsistent condom use -Urine GC/C PCR Negative Assessment & Plan (07/26/2014 11:05 AM ORTHOTICS PROSTHETICS ASSISTANT): Assessment: 18 year old male with a mixed germ cell testicular tumor, embryonal predominant type s/p left orchidectomy (07/05/14) s/p right IJ dual lumen dialysis catheter placement (07/17/14) here for scheduled chemo - Cycle 1 of PEB. Plan: Heme/Onc - Counts met for chemotherapy (07/23/14) -Cycle 1 Day 4 -Cisplatin 20 mg/m2 -Etoposide 100 mg/m2 -Transfusion parameters: Hgb <7 (<8 with symptoms), Platelets <10 (<20 with symptoms) FEN/GI -Low Sodium and Calcium likely due to fluid overload -Prehydration: D5 1/2NS + 20 g/L mannitol at 500 mL/m2 over two hours -Posthydration: D5 1/2NS + 20 mEq/L KCl + 150 mEq/L MgSO4 at 125 mL/m2/hr -Weight gain 5kg (5.1% starting weight) -Likely secondary to fluid overload -40 mg furosemide scheduled (1x), 40 mg PRN if weight increases tonight -Regular diet as tolerated -Famotidine 40 mg QHS -Antiemetic regimen -Ondansetron 8 mg q8hr (Scheduled) for nausea/vomiting -Diphenhydramine 50 mg q6hr PRN for nausea/vomiting -Lorazepam 1 mg q8hr PRN for nausea/vomiting -BID Weights -Strict I/O ID - No signs or symptoms of infection, no Neutropenia (ANC>5,000) -Fever plan: Blood cultures from all lumens, Rocephin 50 mg/kg daily CV/Res - Vital signs stable on room air -Vital signs q4hr with pulse ox Neuro/Pain - Currently reports headache -Will continue to monitor pain -Oxycodone 10 mg q4hr PRN for pain - History of multiple (4) sexual partners with inconsistent condom use -Urine GC/C PCR Negative Assessment & Plan (07/26/2014 10:29 AM ORTHOTICS PROSTHETICS ASSISTANT): Assessment:18 year old male with recent diagnosis of mixed germ cell tumor s/p radical left orchiectomy on (07/05/2014) and dialysis catheter placement (07/17/2014) admitted for scheduled chemotherapy, cycle one. Clinically stable. Plan: FEN/GI: - Prehydration: D5 1/2NS + 20g/L mannitol at 500 mL/m2 over two hours - Posthydration: D5 1/2NS +20 meq/L KCL at 125mL/m2/hr - Next AM BMP, Mg, P - Lasix 40 mg, will repeat dose in PM if weight is >102 kg - Regular Diet - famotidine 40 mg q night - antiemetic regimen with - dexamethasone 6 mg q 6 h - ondansetron 8mg q 8 h - ativan 1mg q8 h PRN nausea/vomitting - diphenhydramine 50 mg q 6 h PRN nausea/vomitting - weight BID - strict I/Os Heme/Onc: Counts met for chemotherapy. - etoposide 100mg/m2 daily x 5 days - cisplatin 20mg/m2 daily x 5 days ID: no signs or symptoms of infection, no neutropenia - Fever plan: Blood culture from all lumens, rocephin CV/Resp: stable on room air - Vital signs q4 with Pulse ox : History of multiple sex partners with inconsistent condom use - Urine GC/Chlamidya amplified probe negative Nuro/Pain: complaints of headache, no significant distress - acetaminophen 1000 mg q6h PRN - oxycodone 10mg q4h PRN Assessment & Plan (07/25/2014 10:18 AM ORTHOTICS PROSTHETICS ASSISTANT): Assessment: 18 year old male with a mixed germ cell testicular tumor, embryonal predominant type s/p left orchidectomy (07/05/14) s/p right IJ dual lumen dialysis catheter placement (07/17/14) here for scheduled chemo - Cycle 1 of PEB. Plan: Heme/Onc - Counts met for chemotherapy (07/23/14) -Cycle 1 Day 3 -Cisplatin 20 mg/m2 (Day 3 of 5) -Etoposide 100 mg/m2 (Day 3 of 5) -Transfusion parameters: Hgb <7 (<8 with symptoms), Platelets <10 (<20 with symptoms) FEN/GI -Prehydration: D5 1/2NS + 20 g/L mannitol at 500 mL/m2 over two hours -Posthydration: D5 1/2NS + 20 mEq/L KCl + 150 mEq/L MgSO4 at 125 mL/m2/hr -Discussed I/O net input with team. No signs of fluid overload. Net weight gain is <5%. Will continue current orders. If signs/symptoms of fluid overload develop, will add a dose of lasix. -Regular diet as tolerated -Famotidine 40 mg QHS -Antiemetic regimen -Ondansetron 8 mg q8hr (Scheduled) for nausea/vomiting -Diphenhydramine 50 mg q6hr PRN for nausea/vomiting -Lorazepam 1 mg q8hr PRN for nausea/vomiting -BID Weights -Strict I/O ID - No signs or symptoms of infection, no Neutropenia (ANC>5,000) -Fever plan: Blood cultures from all lumens, Rocephin 50 mg/kg daily CV/Res - Vital signs stable on room air -Vital signs q4hr with pulse ox Neuro/Pain - Currently reports headache -1x ketorolac (Tordol) 30 mg given 42 -Will continue to monitor pain -If headache continues, consider 1x dose of Reglan/Compazine + Benadryl -If pain becomes severe can write for oxycodone 5 mg q2hr PRN - History of multiple (4) sexual partners with inconsistent condom use -Patient verbally consented to GC/Chlamidya testing; Requests confidentiality -Urine GC/C PCR pending Assessment & Plan (07/25/2014 10:03 AM ORTHOTICS PROSTHETICS ASSISTANT): Assessment:18 year old male with recent diagnosis of mixed germ cell tumor s/p radical left orchiectomy on (07/05/2014) and dialysis catheter placement (07/17/2014) admitted for scheduled chemotherapy, cycle one. Clinically stable. Plan: FEN/GI: - Prehydration: D5 1/2NS + 20g/L mannitol at 500 mL/m2 over two hours - Posthydration: D5 1/2NS +20 meq/L KCL at 125mL/m2/hr - Next AM BMP, Mg, P - Consider Lasix 20 mg with continuing positive fluid balance - Regular Diet - famotidine 40 mg q night - antiemetic regimen with - dexamethasone 6 mg q 6 h - ondansetron 8mg q 8 h - ativan 1mg q8 h PRN nausea/vomitting - diphenhydramine 50 mg q 6 h PRN nausea/vomitting - weight BID - strict I/Os Heme/Onc: Counts met for chemotherapy. - etoposide 100mg/m2 daily x 5 days (day 2 today) - cisplatin 20mg/m2 daily x 5 days (day 2 today) ID: no signs or symptoms of infection, no neutropenia - Fever plan: Blood culture from all lumens, rocephin CV/Resp: stable on room air - Vital signs q4 with Pulse ox : History of multiple sex partners with inconsistent condom use - Urine GC/Chlamidya amplified probe Nuro/Pain: complaints of headache, will continue to evaluate throughout the day - acetaminophen 650 mg q6 h PRN - Toradol 30 mg x 1 Assessment & Plan (07/24/2014 12:01 PM ORTHOTICS PROSTHETICS ASSISTANT): Assessment:18 year old male with recent diagnosis of mixed germ cell tumor s/p radical left orchiectomy on (07/05/2014) and dialysis catheter placement (07/17/2014) admitted for scheduled chemotherapy, cycle one. Clinically stable. Plan: FEN/GI - Prehydration: D5 1/2NS + 20g/L mannitol at 500 mL/m2 over two hours - Posthydration: D5 1/2NS +20 meq/L KCL at 125mL/m2/hr - Regular Diet - famotidine 40 mg q night - antiemetic regimen with - dexamethasone 6 mg q 6 h - ondansetron 8mg q 8 h - ativan 1mg q8 h PRN nausea/vomitting - diphenhydramine 50 mg q 6 h PRN nausea/vomitting - weight BID - strict I/Os Heme/Onc: Counts met for chemotherapy. - etoposide 100mg/m2 daily x 5 days (day 2 today) - cisplatin 20mg/m2 daily x 5 days (day 2 today) ID: no signs or symptoms of infection, no neutropenia - Blood culture from all lumens - Rocephin 50mg/kg daily CV/Resp: stable on room air - Vital signs q4 with Pulse ox : History of multiple sex partners with inconsistent condom use - Urine GC/Chlamidya amplified probe Nuro/Pain: complaints of headache - acetaminophen 650 mg q6 h PRN Assessment & Plan (07/24/2014 11:17 AM ORTHOTICS PROSTHETICS ASSISTANT): Assessment: 18 year old male with a mixed germ cell testicular tumor, embryonal predominant type s/p left orchidectomy (07/05/14) s/p right IJ dual lumen dialysis catheter placement (07/17/14) here for scheduled chemo - Cycle 1 of PEB. Plan: Heme/Onc - Counts met for chemotherapy (07/23/14) -Cycle 1 Day 2 -Cisplatin 20 mg/m2 (Day 2 of 5) -Etoposide 100 mg/m2 -Will start chemo at 23:20 (24hrs after Day 1) -Transfusion parameters: Hgb <7 (<8 with symptoms), Platelets <10 (<20 with symptoms) FEN/GI -Prehydration: D5 1/2NS + 20 g/L mannitol at 500 mL/m2 over two hours -Posthydration: D5 1/2NS + 20 mEq/L KCl + 150 mEq/L MgSO4 at 125 mL/m2/hr -Regular diet as tolerated -Famotidine 40 mg QHS -Ondansetron 8 mg q8hr (Scheduled) for nausea/vomiting -Diphenhydramine 50 mg q6hr PRN for nausea/vomiting -Lorazepam 1 mg q8hr PRN for nausea/vomiting -BID Weights -Strict I/O ID - No signs or symptoms of infection, no Neutropenia (ANC>5,000) -Fever plan: Blood cultures from all lumens, Rocephin 50 mg/kg daily CV/Res - Vital signs stable on room air -Vital signs q4hr with pulse ox Neuro/Pain - Reports no pain currently -If pain develops, can write for oxycodone 5 mg q2hr PRN - History of multiple (4) sexual partners with inconsistent condom use -Patient verbally consented to GC/Chlamidya testing; Requests confidentiality Assessment & Plan (07/23/2014 4:19 PM ORTHOTICS PROSTHETICS ASSISTANT): Assessment:18 year old male with recent diagnosis of mixed germ cell tumor s/p radical left orchiectomy on (07/05/2014) and dialysis catheter placement (07/17/2014) admitted for scheduled chemotherapy, cycle one. Clinically stable. Plan: FEN/GI - Prehydration: D5 1/2NS + 20g/L mannitol at 500 mL/m2 over two hours - Posthydration: D5 1/2NS +20 meq/L KCL at 125mL/m2/hr - Regular Diet - famotidine 40 mg q night - weight BID - strict I/Os Heme/Onc: Counts met for chemotherapy. 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 He is stable post-procedure and pain has been controlled with fentanyl and morphine. Will manage pain and advance to a regular diet as tolerated. Needs line care teaching and supplies prior to discharge. Also needs baseline audiogram prior to discharge since he will be starting etoposide next week. Miguel will begin chemotherapy with four 5-day courses of bleomycin, etoposide, and vincristine next Wednesday after his sperm bank appt. Will possibly need stem cell transplant in the near future, depending on response to treatment. Plan: FEN/GI: - Advance to regular diet as tolerated - Continue famotidine 40mg PO - Zofran PRN nausea/vomiting Hem/Onc: - Needs baseline audiogram prior to d/c - Will begin chemotherapy 07/23/14 after sperm bank appt Pain/Neuro: - Pain control with oxycodone 5mg (give first), morphine 4mg IV PRN if pain not controlled with Oxy Immunizations Immunization Administration Dates Next Due INFLUENZA VACCINE, QUADR. (F LUZONE; FLULAVAL; FLUARIX; AFLURIA QUADRIVALENT; 6MO+), 0.5 ML (IIV4) 07/13/2014 Family History Medical History Relation Name Comments Anesthesia Reaction Neg Hx Social History Tobacco Use Types Packs/Day Years Used Date Smoking Tobacco: Former Smokeless Tobacco: Never Tobacco Cessation:Ready to Q uit: No Comments:SOCIALLY Alcohol Use Standard Drinks/Week Comments Yes 0 (1 standard drink = 0.6 oz pure alcohol) WEEKLY 0.5 pint a night since jason meyer AUD[facility] Answer Date Recorded Q1: How often do you have a drink containing alcohol? 4 or more times a week 08/03/2021 Q2: How many drinks containi ng alcohol do you have on a typical day when you are drinking? 5 or 6 Q3: How often do you have si x or more drinks on one occasion? Daily or almost daily 08/03/2021 Sex and Gender Information Value Date Recorded Sex Assigned at Not on file Legal Sex Male 3:48 PM ORTHOTICS PROSTHETICS ASSISTANT Gender Identity Not on file Sexual Orientation Not on file Last Filed Vital Signs Vital Sign Reading Time Taken Comments Blood Pressure 125/70 08/04/2021 3:18 AM ORTHOTICS PROSTHETICS ASSISTANT Pulse 70 08/04/2021 3:18 AM ORTHOTICS PROSTHETICS ASSISTANT Temperature 36.6 C (97.8 F) 08/04/2021 3:18 AM ORTHOTICS PROSTHETICS ASSISTANT Respiratory Rate 18 08/04/2021 3:18 AM ORTHOTICS PROSTHETICS ASSISTANT Oxygen Saturation 98% 08/04/2021 3:18 AM ORTHOTICS PROSTHETICS ASSISTANT Inhaled Oxygen Concentration - - Weight 98.9 kg (218 lb) 08/03/2021 10:56 PM ORTHOTICS PROSTHETICS ASSISTANT Height 167.6 cm (5' 6) 08/03/2021 10:56 PM ORTHOTICS PROSTHETICS ASSISTANT Body Mass Index 35.19 08/03/2021 10:56 PM ORTHOTICS PROSTHETICS ASSISTANT Plan of Treatment Health Maintenance Due Date Last Done Comments DTAP/TDAP/TD VACCINES (1 - Tdap) 2015 HEPATITIS B VACCINE (1 of 3 - 19+ 3-dose series) 2015 HPV VACCINE (1 - 3-dose SCDM series) 2023 DEPRESSION SCREENING 07/19/2024 COVID-19 VACCINE (1 - 2023-2 5 season) 2025 INFLUENZA VACCINE (#1) 2025 07/13/2014 ZOSTER VACCINE (1 of 2) 2046 HIV SCREENING Completed 08/15/2014, 07/13/2014 HEPATITIS C SCREENING Completed 12/07/2017 , 08/15/2014, 07/13/2014 HIB VACCINE Aged Out No longer eligi ble based on patient's age to complete this topic MENINGOCOCCAL (Group B) VACCINE SHARED DECISION-MAKING Aged Out No longer eligible based on patient's age to complete this topic MENINGOCOCCAL GROUPS A/C/Y/W VACCINE Aged Out No longer eligible b ased on patient's age to complete this topic PNEUMOCOCCAL VACCINE Aged Out No long er eligible based on patient's age to complete this topic Medical Devices Explanted Type Area Heavy Equipment Engine Mechanic Device Identifier Shelf Expiration Date Model / Serial / Lot Cath Dual Lumn Perm 36mm Implanted:Qty: 1 on 07/17/2014 by Marko Whitlock MD at [facility] Explanted:Qty: 1 on 11/05/2014 at [facility] Right: Neck [facility] Prodcuts 03/17/2017 [id number] / / [id number] Description:right internal j ugular Procedures Procedure Name Priority Date/Time Associated Diagnosis Comments HEPATITIS C ANTIBODY Routine 12/07/2017 10:29 AM CDT HIV-1 HIV-2 ANTIBODY + HIV P24 AG PANEL AM Draw 08/15/2014 4:02 AM ORTHOTICS PROSTHETICS ASSISTANT Germ cell carcinoma of testicle from Last 3 Months or Most Recently Relevant to Health Maintenance Results * HEPATITIS C ANTIBODY (12/07/2017 10:29 AM CDT) Pathologist [facility] HCV Antibody Screen Non Reactive Non Reactive 12/07/2017 11:19 AM CDT [facility] HCV S/C Ratio 0.08 0.00 - 0.79 12/07/2017 11:19 AM T [facility] Comment: Ogdfte-jy-sejjgb ratio (S/CO) <0.80: Non Reactive Blood BLOOD SPECIMEN / Unknown Lab Venipuncture / Unknown 12/07/2017 10:29 AM CDT 12/07/2017 10:33 AM CDT Narrative [facility] - 12/07/2017 11:19 AM CDT Non Reactive - Antibodies to Hepatitis C virus (HCV) were not detected, result does not exclude early acute HCV infection. us Diamond Davenport MD LAB - CHEMISTRY ORDERABLES Miya l Result [facility] [address] [place] [address] * HIV-1 HIV-2 ANTIBODY + HIV P24 AG PANEL (08/15/2014 4:02 AM ORTHOTICS PROSTHETICS ASSISTANT) [facility] HIV1/2 Ab + P24 Ag Non Reactive Non Reactive 08/16/2014 12:46 PM ORTHOTICS PROSTHETICS ASSISTANT [facility] Blood BLOOD SPECIMEN / Unknown 08/15/2014 4:02 AM ORTHOTICS PROSTHETICS ASSISTANT 08/15/2014 4:19 AM ORTHOTICS PROSTHETICS ASSISTANT us Olivier Ventura MD LAB - CHEMISTRY ORDERABLES Final Result Performing Organization Address [facility]/ZIP Co de Phone Number [facility] [address] [place] [phone] from Last 3 Months or Most Recently Relevant to Health Maintenance Insurance [facility] [employer] MEDICAID [facility] Advance Directives * Full Code (Latest Code Status on File) Date Activated Date Inactivated Comments 12/06/2017 6:32 PM 12/08/2017 3:38 PM
--- OUTSIDE RECORDS SUMMARY | 2025-04-09 21:48 | XMS_ITS ---
Author Organization [facility] Address [address] [place] [address] Care Team Providers Care Rod Placer Name Role Phone Unavailable Primary Care Provider Unavailabl e Active Problems Patient Care Coordination No te Formatting of this note migh t be different from the original. *Nael's family needs a Welsh-speaking foreign exchange position clerk for each visit* Nael's cell: [phone] Nael's father's cell at [phone] Patient has signed HIPAA release of information for parents/self. Problem Noted Date Diagnosed Date Intractable pain 12/06/2017 Assessment & Plan (12/08/2017 10:21 AM CDT): Assessment: Nael is a 22 y.o. history of germ [...] 800 mg q6hr - Will transition from V BELT COVERER to oral oxycodone Access: PIV Assessment & Plan (12/08/2017 9:13 AM CDT): Assessment: Nael Frausto is a 22 year old with history [...] than ALT in acute alcohol abuse. Plan: K -Right tibia and fibula xray had negative [...] HD unstable, consider fluid bolus Neuro/Pain: -Dilaudid V BELT COVERER -150 basal, 150 push, 10 min lockout -Has pressed considerable number of times -wean basal to 100 as the etiology of the pain is likely inflammatory -Narcan drip V BELT COVERER -Motrin 800 mg PO q6 -optimize, consider naproxen Endo: -Replesta 150,000 u administered -F/u vitamin D level in 4-6 weeks Assessment & Plan (12/07/2017 11:50 AM CDT): Assessment: Nael is a 22 y.o. history of germ [...] - Motrin 800 mg q6hr - Dilaudid V BELT COVERER with basal 200mcg and 100mcg bolus with 10 minute lockout, plan to wean V BELT COVERER today Access: PIV Assessment & Plan (12/07/2017 2:57 PM CDT): Assessment: Nael Frausto is a 22 year old with history [...] site for erythema and tenderness Neuro/Pain: -Dilaudid V BELT COVERER -200 basal, 150 push, 10 min lockout -consider weaning basal if he doesn't press V BELT COVERER in an hour -Narcan drip V BELT COVERER -Motrin 800 mg PO q6 Endo: -Replesta 150,000 u once Assessment & Plan (12/07/2017 12:38 AM CDT): Assessment: Nael is a 22 y.o. history of germ [...] unstable) Assessment & Plan (09/07/2014 10:56 AM CAMPAIGN WORKER): Assessment Nael Frausto is a 18 y.o. male with malignant [...] home. Assessment & Plan (09/05/2014 10:36 AM CAMPAIGN WORKER): Assessment Nael Frausto is a 18 y.o. 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 Assessment & Plan (08/18/2014 8:59 AM CAMPAIGN WORKER): Germ cell carcinoma of testicle Assessment: Nael is a 18 year old M with [...] harvest ([facility] to see pt again today and Wed) - CBC scheduled for Wednesday [...] PRN for pain/SALAZAR - Monitor I/Os Sofi Gilmore Diller Medical Student, MS-3 Assessment & Plan (08/17/2014 6:32 PM CAMPAIGN WORKER): Assessment: 18 year old male with metastatic [...] oximetry Assessment & Plan (08/17/2014 7:02 AM CAMPAIGN WORKER): Assessment: 18 year old male with diagnosis [...] orders for neupogen prior to SC harvest ([facility] to see pt for training today) [...] I/Os Assessment & Plan (08/16/2014 1:08 PM CAMPAIGN WORKER): Assessment: 18 year old male with metastatic [...] oximetry Assessment & Plan (08/15/2014 1:27 PM CAMPAIGN WORKER): Assessment: 18 year old male with metastatic [...] oximetry Assessment & Plan (08/15/2014 6:58 AM CAMPAIGN WORKER): Assessment: 18 year old male with diagnosis [...] I/Os Assessment & Plan (08/14/2014 11:45 AM CAMPAIGN WORKER): Assessment: 18 year old male with metastatic [...] oximetry Assessment & Plan (08/14/2014 7:12 AM CAMPAIGN WORKER): Assessment:18 year old male with diagnosis of [...] I/Os Assessment & Plan (08/13/2014 4:10 PM CAMPAIGN WORKER): Assessment: 18 year old male with metastatic [...] oximetry Assessment & Plan (08/13/2014 3:30 PM CAMPAIGN WORKER): Assessment:18 year old male with diagnosis of [...] I/Os Assessment & Plan (07/28/2014 9:29 AM CAMPAIGN WORKER): Assessment: 18 year old male with a [...] Negative Assessment & Plan (07/27/2014 11:25 AM CAMPAIGN WORKER): Assessment:18 year old male with recent diagnosis [...] PRN Assessment & Plan (07/27/2014 10:59 AM CAMPAIGN WORKER): Assessment: 18 year old male with a [...] Negative Assessment & Plan (07/26/2014 11:05 AM CAMPAIGN WORKER): Assessment: 18 year old male with a [...] Negative Assessment & Plan (07/26/2014 10:29 AM CAMPAIGN WORKER): Assessment:18 year old male with recent diagnosis [...] PRN Assessment & Plan (07/25/2014 10:18 AM CAMPAIGN WORKER): Assessment: 18 year old male with a [...] headache -1x ketorolac (Tordol) 30 mg given 0942 -Will continue to monitor pain -If headache continues, consider 1x dose of Reglan/Compazine + Benadryl -If pain becomes severe can write for oxycodone 5 mg q2hr PRN - History of multiple (4) sexual partners with inconsistent condom use -Patient verbally consented to GC/Chlamidya testing; Requests confidentiality -Urine GC/C PCR pending Assessment & Plan (07/25/2014 10:03 AM CAMPAIGN WORKER): Assessment:18 year old male with recent diagnosis [...] 1 Assessment & Plan (07/24/2014 12:01 PM CAMPAIGN WORKER): Assessment:18 year old male with recent diagnosis [...] PRN Assessment & Plan (07/24/2014 11:17 AM CAMPAIGN WORKER): Assessment: 18 year old male with a [...] confidentiality Assessment & Plan (07/23/2014 4:19 PM CAMPAIGN WORKER): Assessment:18 year old male with recent diagnosis [...] testing Assessment & Plan (07/17/2014 1:55 PM CAMPAIGN WORKER): Assessment: Nael Frausto is a 18yo M with recently diagnosed [...] he will be starting etoposide next week. Nael will begin chemotherapy with four 5-day courses [...] PRN if pain not controlled with Oxy Current Treatment and Therapy Plans No current plan information found. Past Treatment and Therapy Plans No past plan information found. Lifetime Dose Tracking * Chemical Lifetime Dose Automatic Entry Manual Entr y Bleomycin 128 Units 128 Units 0 Units Dose Length Product 889 mGy-cm 889 mGy-cm 0 mGy-cm
[2025-04-09 22:19] LABS: Hematocrit 42.6 % (42.0-52.0); Hemoglobin 14.5 g/dL (14.0-18.0); Immature Granulocyte Percent A 0.4 % (0-0.5); Immature Platelet Fraction Pct 9.9 % (0.9-11.2); Lymphocytes Absolute Auto 2.14 K/mm3 (0.9-3.2); Mean Corpuscular HGB Conc 34.0 g/dl (32-36); Mean Corpuscular Hemoglobin 33.3 pg (26-34); Mean Corpuscular Volume 97.7 fl (80-100); Nucleated Red Blood Cells Absolute Auto 0.000 K/mm3 (0.0-0.012); Nucleated Red Blood Cells Perc 0.0 % (0.0-0.2); Platelet Count Result 130 k/mm3 (150-375); Red Blood Count 4.36 M/mm3 (4.6-6.20); White Blood Count 9.2 K/mm3 (4.5-10.0)
[2025-04-09 22:29] LABS: Alanine Aminotransferase 139 U/L (6-50); Albumin Level 4.4 g/dL (3.5-5.1); Alkaline Phosphatase 208 U/L (38-126); Anion Gap 16 mmol/L (4-12); Aspartate Amino Transferase 184 U/L (17-59); Bilirubin,Total 2.4 mg/dL (0.2-1.3); Blood Urea Nitrogen 3 mg/dL (9-20); Calcium 8.6 mg/dL (8.4-10.2); Carbon Dioxide 26 mmol/L (22-30); Chloride 96 mmol/L (98-107); Estimated CRCL calculation 231 ml/min; Estimated Glomerular Filt Rate > 60; Glucose 307 mg/dL (65-110); Potassium 3.6 mmol/L (3.4-5.0); Sodium 138 mmol/L (137-145); Total Protein 9.5 g/dL (6.3-8.2)
[2025-04-09] MEDS: HALOPERIDOL LACTATE 5 MG/ML VIAL IV PUSH (22:34)
[2025-04-09] MEDS: LACTATED RINGERS 1,000 ML 999 ML IV CONT (22:34)
[2025-04-09] MEDS: PANTOPRAZOLE SODIUM IV 40 MG VIAL IV PUSH (22:34)
[2025-04-09 22:37] LABS: INR 1.2; Prothrombin Time 15.5 Seconds (11.1-14.7)
[2025-04-09 22:38] LABS: Partial Thromboplastin Time 32.9 Seconds (22.3-36.8)
--- OUTSIDE RECORDS SUMMARY | 2025-04-09 23:46 | XMS_ITS ---
Author Organization [facility] Address [address] [place] [address] Care Team Providers Care Restaurant Recruiter Name Role Phone Unavailable Primary Care Provider Unavailabl e Active Problems Patient Care Coordination No te Formatting of this note migh t be different from the original. *Nael's family needs a Nepali-speaking cage supervisor for each visit* Nael's cell: [phone] Nael's father's cell at [phone] Patient has signed HIPAA release of information [...] 800 mg q6hr - Will transition from CUFF CUTTER to oral oxycodone Access: PIV Assessment & [...] HD unstable, consider fluid bolus Neuro/Pain: -Dilaudid CUFF CUTTER -150 basal, 150 push, 10 min lockout -Has pressed considerable number of times -wean basal to 100 as the etiology of the pain is likely inflammatory -Narcan drip CUFF CUTTER -Motrin 800 mg PO q6 -optimize, consider [...] - Motrin 800 mg q6hr - Dilaudid CUFF CUTTER with basal 200mcg and 100mcg bolus with 10 minute lockout, plan to wean CUFF CUTTER today Access: PIV Assessment & Plan (12/07/2017 [...] site for erythema and tenderness Neuro/Pain: -Dilaudid CUFF CUTTER -200 basal, 150 push, 10 min lockout -consider weaning basal if he doesn't press CUFF CUTTER in an hour -Narcan drip CUFF CUTTER -Motrin 800 mg PO q6 Endo: -Replesta [...] unstable) Assessment & Plan (09/07/2014 10:56 AM CONSTRUCTION CRAFT LABORER): Assessment Nael Frausto is a 18 y.o. [...] home. Assessment & Plan (09/05/2014 10:36 AM CONSTRUCTION CRAFT LABORER): Assessment Nael Frausto is a 18 y.o. 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 Assessment & Plan (08/18/2014 8:59 AM CONSTRUCTION CRAFT LABORER): Germ cell carcinoma of testicle Assessment: Nael [...] for pain/SALAZAR - Monitor I/Os Sofi Gilmore Shepherd Medical Student, MS-3 Assessment & Plan (08/17/2014 6:32 PM CONSTRUCTION CRAFT LABORER): Assessment: 18 year old male with metastatic [...] oximetry Assessment & Plan (08/17/2014 7:02 AM CONSTRUCTION CRAFT LABORER): Assessment: 18 year old male with diagnosis [...] orders for neupogen prior to SC harvest ([facility] to see pt for training today) [...] I/Os Assessment & Plan (08/16/2014 1:08 PM CONSTRUCTION CRAFT LABORER): Assessment: 18 year old male with metastatic [...] oximetry Assessment & Plan (08/15/2014 1:27 PM CONSTRUCTION CRAFT LABORER): Assessment: 18 year old male with metastatic [...] oximetry Assessment & Plan (08/15/2014 6:58 AM CONSTRUCTION CRAFT LABORER): Assessment: 18 year old male with diagnosis [...] I/Os Assessment & Plan (08/14/2014 11:45 AM CONSTRUCTION CRAFT LABORER): Assessment: 18 year old male with metastatic [...] oximetry Assessment & Plan (08/14/2014 7:12 AM CONSTRUCTION CRAFT LABORER): Assessment:18 year old male with diagnosis of [...] I/Os Assessment & Plan (08/13/2014 4:10 PM CONSTRUCTION CRAFT LABORER): Assessment: 18 year old male with metastatic [...] oximetry Assessment & Plan (08/13/2014 3:30 PM CONSTRUCTION CRAFT LABORER): Assessment:18 year old male with diagnosis of [...] I/Os Assessment & Plan (07/28/2014 9:29 AM CONSTRUCTION CRAFT LABORER): Assessment: 18 year old male with a [...] Negative Assessment & Plan (07/27/2014 11:25 AM CONSTRUCTION CRAFT LABORER): Assessment:18 year old male with recent diagnosis [...] PRN Assessment & Plan (07/27/2014 10:59 AM CONSTRUCTION CRAFT LABORER): Assessment: 18 year old male with a [...] Negative Assessment & Plan (07/26/2014 11:05 AM CONSTRUCTION CRAFT LABORER): Assessment: 18 year old male with a [...] Negative Assessment & Plan (07/26/2014 10:29 AM CONSTRUCTION CRAFT LABORER): Assessment:18 year old male with recent diagnosis [...] PRN Assessment & Plan (07/25/2014 10:18 AM CONSTRUCTION CRAFT LABORER): Assessment: 18 year old male with a [...] pending Assessment & Plan (07/25/2014 10:03 AM CONSTRUCTION CRAFT LABORER): Assessment:18 year old male with recent diagnosis [...] 1 Assessment & Plan (07/24/2014 12:01 PM CONSTRUCTION CRAFT LABORER): Assessment:18 year old male with recent diagnosis [...] PRN Assessment & Plan (07/24/2014 11:17 AM CONSTRUCTION CRAFT LABORER): Assessment: 18 year old male with a [...] confidentiality Assessment & Plan (07/23/2014 4:19 PM CONSTRUCTION CRAFT LABORER): Assessment:18 year old male with recent diagnosis [...] testing Assessment & Plan (07/17/2014 1:55 PM CONSTRUCTION CRAFT LABORER): Assessment: Nael Frausto is a 18yo M [...]
--- OUTSIDE RECORDS SUMMARY | 2025-04-09 23:46 | XMS_ITS | Clinical Summary ---
Author Organization [facility] Address [address] [place] [address] [address] Care Ct Scan Technician Name Role Phone Unavailable Primary Care Provider Unavailabl e Source Comments [facility],non-owned Affiliates and Associated Physician Practices is amultiple site organization consisting of ambulatory clinics and hospital sitesin [place], [place], [place] and [place]. This disclosure is being madepursuant to the Care Everywhere program and may not contain all information available regarding this patient. Last updated 18.[employer] [facility] Allergies No known active allergies Medications * [...] from the original. *Miguel's family needs a Persian-speaking wet end tester for each visit* Miguel's cell: [phone] Miguel's father's cell at [phone] Patient has signed HIPAA release of information [...] 800 mg q6hr - Will transition from BIODIESEL PROCESSING TECHNICIAN to oral oxycodone Access: PIV Assessment & Plan (12/08/2017 9:13 AM CDT): Assessment: iMguel Guan is a 22 year old with [...] HD unstable, consider fluid bolus Neuro/Pain: -Dilaudid BIODIESEL PROCESSING TECHNICIAN -150 basal, 150 push, 10 min lockout -Has pressed considerable number of times -wean basal to 100 as the etiology of the pain is likely inflammatory -Narcan drip BIODIESEL PROCESSING TECHNICIAN -Motrin 800 mg PO q6 -optimize, consider [...] - Motrin 800 mg q6hr - Dilaudid BIODIESEL PROCESSING TECHNICIAN with basal 200mcg and 100mcg bolus with 10 minute lockout, plan to wean BIODIESEL PROCESSING TECHNICIAN today Access: PIV Assessment & Plan (12/07/2017 [...] site for erythema and tenderness Neuro/Pain: -Dilaudid BIODIESEL PROCESSING TECHNICIAN -200 basal, 150 push, 10 min lockout -consider weaning basal if he doesn't press BIODIESEL PROCESSING TECHNICIAN in an hour -Narcan drip BIODIESEL PROCESSING TECHNICIAN -Motrin 800 mg PO q6 Endo: -Replesta [...] unstable) Assessment & Plan (09/07/2014 10:56 AM COMMAND AND CONTROL SYSTEMS INTEGRATOR): Assessment Miguel Guan is a 18 y.o. [...] home. Assessment & Plan (09/05/2014 10:36 AM COMMAND AND CONTROL SYSTEMS INTEGRATOR): Assessment Miguel Guan is a 18 y.o. 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 Assessment & Plan (08/18/2014 8:59 AM COMMAND AND CONTROL SYSTEMS INTEGRATOR): Germ cell carcinoma of testicle Assessment: Miguel [...] for pain/SALAZAR - Monitor I/Os Sofi Mando Poneto Medical Student, MS-3 Assessment & Plan (08/17/2014 6:32 PM COMMAND AND CONTROL SYSTEMS INTEGRATOR): Assessment: 18 year old male with metastatic [...] oximetry Assessment & Plan (08/17/2014 7:02 AM COMMAND AND CONTROL SYSTEMS INTEGRATOR): Assessment: 18 year old male with diagnosis [...] I/Os Assessment & Plan (08/16/2014 1:08 PM COMMAND AND CONTROL SYSTEMS INTEGRATOR): Assessment: 18 year old male with metastatic [...] oximetry Assessment & Plan (08/15/2014 1:27 PM COMMAND AND CONTROL SYSTEMS INTEGRATOR): Assessment: 18 year old male with metastatic [...] oximetry Assessment & Plan (08/15/2014 6:58 AM COMMAND AND CONTROL SYSTEMS INTEGRATOR): Assessment: 18 year old male with diagnosis [...] I/Os Assessment & Plan (08/14/2014 11:45 AM COMMAND AND CONTROL SYSTEMS INTEGRATOR): Assessment: 18 year old male with metastatic [...] oximetry Assessment & Plan (08/14/2014 7:12 AM COMMAND AND CONTROL SYSTEMS INTEGRATOR): Assessment:18 year old male with diagnosis of [...] I/Os Assessment & Plan (08/13/2014 4:10 PM COMMAND AND CONTROL SYSTEMS INTEGRATOR): Assessment: 18 year old male with metastatic [...] oximetry Assessment & Plan (08/13/2014 3:30 PM COMMAND AND CONTROL SYSTEMS INTEGRATOR): Assessment:18 year old male with diagnosis of [...] I/Os Assessment & Plan (07/28/2014 9:29 AM COMMAND AND CONTROL SYSTEMS INTEGRATOR): Assessment: 18 year old male with a [...] Negative Assessment & Plan (07/27/2014 11:25 AM COMMAND AND CONTROL SYSTEMS INTEGRATOR): Assessment:18 year old male with recent diagnosis [...] PRN Assessment & Plan (07/27/2014 10:59 AM COMMAND AND CONTROL SYSTEMS INTEGRATOR): Assessment: 18 year old male with a [...] Negative Assessment & Plan (07/26/2014 11:05 AM COMMAND AND CONTROL SYSTEMS INTEGRATOR): Assessment: 18 year old male with a [...] Negative Assessment & Plan (07/26/2014 10:29 AM COMMAND AND CONTROL SYSTEMS INTEGRATOR): Assessment:18 year old male with recent diagnosis [...] PRN Assessment & Plan (07/25/2014 10:18 AM COMMAND AND CONTROL SYSTEMS INTEGRATOR): Assessment: 18 year old male with a [...] pending Assessment & Plan (07/25/2014 10:03 AM COMMAND AND CONTROL SYSTEMS INTEGRATOR): Assessment:18 year old male with recent diagnosis [...] 1 Assessment & Plan (07/24/2014 12:01 PM COMMAND AND CONTROL SYSTEMS INTEGRATOR): Assessment:18 year old male with recent diagnosis [...] PRN Assessment & Plan (07/24/2014 11:17 AM COMMAND AND CONTROL SYSTEMS INTEGRATOR): Assessment: 18 year old male with a [...] confidentiality Assessment & Plan (07/23/2014 4:19 PM COMMAND AND CONTROL SYSTEMS INTEGRATOR): Assessment:18 year old male with recent diagnosis [...] testing Assessment & Plan (07/17/2014 1:55 PM COMMAND AND CONTROL SYSTEMS INTEGRATOR): Assessment: Miguel Guan is a 18yo M [...] on file Legal Sex Male 3:48 PM COMMAND AND CONTROL SYSTEMS INTEGRATOR Gender Identity Not on file Sexual Orientation Not on file Last Filed Vital Signs Vital Sign Reading Time Taken Comments Blood Pressure 125/70 08/04/2021 3:18 AM COMMAND AND CONTROL SYSTEMS INTEGRATOR Pulse 70 08/04/2021 3:18 AM COMMAND AND CONTROL SYSTEMS INTEGRATOR Temperature 36.6 C (97.8 F) 08/04/2021 3:18 AM COMMAND AND CONTROL SYSTEMS INTEGRATOR Respiratory Rate 18 08/04/2021 3:18 AM COMMAND AND CONTROL SYSTEMS INTEGRATOR Oxygen Saturation 98% 08/04/2021 3:18 AM COMMAND AND CONTROL SYSTEMS INTEGRATOR Inhaled Oxygen Concentration - - Weight 98.9 kg (218 lb) 08/03/2021 10:56 PM COMMAND AND CONTROL SYSTEMS INTEGRATOR Height 167.6 cm (5' 6) 08/03/2021 10:56 PM COMMAND AND CONTROL SYSTEMS INTEGRATOR Body Mass Index 35.19 08/03/2021 10:56 PM COMMAND AND CONTROL SYSTEMS INTEGRATOR Plan of Treatment Health Maintenance Due Date [...] this topic Medical Devices Explanted Type Area Laundry Sorter Device Identifier Shelf Expiration Date Model / Serial / Lot Cath Dual Lumn Perm 36mm Implanted:Qty: 1 on 07/17/2014 by Marko Whitlock MD at [facility] Explanted:Qty: 1 on 11/05/2014 at [facility] Right: Neck [facility] Prodcuts 03/17/2017 [id number] / / [id number] Description:right internal j ugular Procedures Procedure Name Priority Date/Time Associated Diagnosis Comments HEPATITIS C ANTIBODY Routine 12/07/2017 10:29 AM CDT HIV-1 HIV-2 ANTIBODY + HIV P24 AG PANEL AM Draw 08/15/2014 4:02 AM COMMAND AND CONTROL SYSTEMS INTEGRATOR Germ cell carcinoma of testicle from Last 3 Months or Most Recently Relevant to Health Maintenance Results * HEPATITIS C ANTIBODY (12/07/2017 10:29 AM CDT) Pathologist [facility] HCV Antibody Screen Non Reactive Non Reactive 12/07/2017 11:19 AM CDT [facility] HCV S/C Ratio 0.08 0.00 - 0.79 12/07/2017 11:19 AM T [facility] Comment: Uzzaxs-jh-iywpzx ratio (S/CO) <0.80: Non Reactive Blood BLOOD SPECIMEN / Unknown Lab Venipuncture / Unknown 12/07/2017 10:29 AM CDT 12/07/2017 10:33 AM CDT Narrative [facility] - 12/07/2017 11:19 AM CDT Non Reactive - Antibodies to Hepatitis C virus (HCV) were not detected, result does not exclude early acute HCV infection. us Diamond Davenport MD LAB - CHEMISTRY ORDERABLES Miya l Result [facility] [address] [place] [address] * HIV-1 HIV-2 ANTIBODY + HIV P24 AG PANEL (08/15/2014 4:02 AM COMMAND AND CONTROL SYSTEMS INTEGRATOR) [facility] HIV1/2 Ab + P24 Ag Non Reactive Non Reactive 08/16/2014 12:46 PM COMMAND AND CONTROL SYSTEMS INTEGRATOR [facility] Blood BLOOD SPECIMEN / Unknown 08/15/2014 4:02 AM COMMAND AND CONTROL SYSTEMS INTEGRATOR 08/15/2014 4:19 AM COMMAND AND CONTROL SYSTEMS INTEGRATOR us Olivier Ventura MD LAB - CHEMISTRY ORDERABLES Final Result Performing Organization Address [facility]/ZIP Co de Phone Number [facility] [address] [place] [phone] from Last 3 Months or Most Recently Relevant to Health Maintenance Insurance [employer] MEDICAID [facility] Advance Directives * Full Code (Latest Code Status on File) Date Activated Date Inactivated Comments 12/06/2017 6:32 PM 12/08/2017 3:38 PM
[2025-04-10] VITALS (11 sets, daily range): BP systolic 118–165; BP diastolic 55–104; PULSE 68–112; RESP 16–30; TEMP 36–36.7; O2SAT 95–99; BMI 35.2
[2025-04-10] MEDS: diazePAM INJ (*CRX) 10 MG/2 ML SYRINGE 5 MG IV PUSH (01:40)
--- NOTE | 2025-04-10 03:40 | ED.GIBLEED ---
HPI - GI Bleed General Chief complaint: GI Bleed Stated complaint: Vomiting up blood-prob from Alcohol Time Seen by Provider: 04/09/25 22:27 History of Present Illness HPI Narrative: Patient does have history of alcohol use disorder, he has been throwing up on and off now for last few days, and earlier noticed a bit of blood in his vomit so came in. Related Data Allergies Allergy/AdvReac Type Severity Reaction Status Date / Time No Known Allergies Allergy Verified 04/09/25 21:56 Review of Systems Review of Systems: All systems reviewed & are unremarkable except as noted in HPI and below PMFSH Social History Social History Smoking status: Never smoker Alcohol intake: current Drinks per week: 16 Substance use: never Substance use type: does not use Lack of Transportation: No Lack of Food: Never True Current Housing: I Have Housing Concerned About Future Housing: No Difficulty Paying Gas/Electric Bills: No Difficulty Paying for Meds: No Currently Unemployed: No Education: Decline to Answer Difficulty w/ Childcare or Family Care: No Spiritual care concerns: No Exam Narrative: EXAMINATION OF ORGAN SYSTEMS/BODY AREAS: Constitutional: Vital signs per nursing GENERAL: Appears uncomfortable nauseous HEAD: Normal with no signs of head trauma. EYES: EOMI, conjunctiva normal ENT: Hearing grossly intact LUNGS: Nonlabored breathing. HEART: Slightly tachycardic ABD: [Soft], slightly tender epigastric abdomen EXT: Normal range of motion SKIN: [No rashes or lesions.] NEURO: [Alert and oriented x 3. No gross focal sensory or strength deficits.] PSYCH: Normal affect Course Vital Signs Vital signs: Vital Signs Temperature 97.6 F 04/09/25 21:51 Respiratory Rate 18 04/09/25 21:51 Pulse Oximetry 98 04/09/25 21:51 Oxygen Delivery Room Air 04/09/25 21:51 Temperature 97.6 F 04/09/25 21:51 Pulse Rate 112 H 04/10/25 03:18 Respiratory Rate 25 H 04/10/25 03:18 Blood Pressure 165/100 H 04/10/25 03:18 Pulse Oximetry 98 04/10/25 03:18 Oxygen Delivery Room Air 04/09/25 21:51 MDM - GI Bleed MDM Narrative Medical decision making narrative: Electronic medical record was reviewed. Patient presented to the ED with complaint of [abdominal pain and vomiting with some blood in the vomit]. Vitals [were within acceptable limits, just slightly tachycardic]. Physical exam revealed soft abdomen, very minimally tender to deep palpation epigastric abdomen. Based on the patient's history and physical exam, my differential includes but is not limited to [gastritis, gastroenteritis, cholecystitis, pancreatitis, Mercy-Maki; doubt varices given how well appearing he is here]. [IV access was established by nursing staff. Patient was given Protonix, Haldol, IV fluid]. CBC, BMP, lipase, LFTs, bilirubin and alk phos were obtained. Labs were pertinent for elevated LFTs and bilirubin. [Decision was made to obtain a CT-abdomen to evaluate for acute abdominal process. CT-abdomen per radiology interpretation with some fatty liver, possible ileus but otherwise no severe acute abnormality.] On reevaluation, the patient states that they are feeling much better. There were no witnessed episodes of vomiting in the emergency department. They are not complaining of any new abdominal pain. However they are concerned that he may go into withdrawal would like him to be admitted at this time, I do feel this is reasonable, dose Valium given and on re-evaluation patient states he feels better. Discussed with poultry process worker and hospitalist for admission. Lab Data 04/09/25 22:11 04/09/25 22:11 Labs: Lab Results 04/09/25 Range/Units 22:11 WBC 9.2 (4.5-10.0) K/mm3 RBC 4.36 L (4.6-6.20) M/mm3 Hgb 14.5 (14.0-18.0) g/dL Hct 42.6 (42.0-52.0) % MCV 97.7 (80-100) fl MCH 33.3 (26-34) pg MCHC 34.0 (32-36) g/dl RDW 12.6 (11.5-14.5) % Plt Count 130 L D (150-375) k/mm3 MPV 11.5 H (7.4-10.4) fl Immature Gran % (Auto) 0.4 (0-0.5) % Neut % (Auto) 66.7 (45.5-73.1) % Lymph % (Auto) 23.2 (18.3-44.2) % [place] % (Auto) 8.3 (2.6-8.5) % Eos % (Auto) 0.5 (0-4.4) % Baso % (Auto) 0.9 (0.2-1.2) % Lymph # (Auto) 2.14 (0.9-3.2) K/mm3 [place] # (Auto) 0.8 H (0.1-0.6) K/mm3 Eos # (Auto) 0.1 (0-0.3) K/mm3 Baso # (Auto) 0.1 (0.0-0.1) K/mm3 Abs Immat Gran (auto) 0.04 H (0.00-0.031) K/mm3 Absolute Neuts (auto) 6.2 (1.3-6.7) K/mm3 Absolute Nucleated RBC 0.000 (0.0-0.012) K/mm3 Nucleated RBC % 0.0 (0.0-0.2) % % Immature Plt Fraction 9.9 (0.9-11.2) % PT 15.5 H (11.1-14.7) Seconds INR 1.2 APTT 32.9 (22.3-36.8) Seconds Sodium 138 (137-145) mmol/L Potassium 3.6 (3.4-5.0) mmol/L Chloride 96 L (98-107) mmol/L Carbon Dioxide 26 (22-30) mmol/L Anion Gap 16 H (4-12) mmol/L BUN 3 L D (9-20) mg/dL Creatinine 0.43 L (0.7-1.3) mg/dL Estim Creat Clear Calc 231 ml/min Estimated GFR > 60 (59 - ) Glucose 307 H (65-110) mg/dL Calcium 8.6 (8.4-10.2) mg/dL Total Bilirubin 2.4 H (0.2-1.3) mg/dL AST 184 H (17-59) U/L ALT 139 H (6-50) U/L Alkaline Phosphatase 208 H (38-126) U/L Total Protein 9.5 H (6.3-8.2) g/dL Albumin 4.4 (3.5-5.1) g/dL Ethyl Alcohol 217 (<10) mg/dL Blood Type O Positive Antibody Screen Negative Discharge Plan Discharge Clinical Impression: Hematemesis, Alcohol use disorder, Transaminitis Patient Disposition: Still a Patient Condition: Stable
[2025-04-10] MEDS: LACTATED RINGERS 1,000 ML 125 ML IV CONT ×2 (03:48→15:31)
--- NOTE | 2025-04-10 05:00 | ADMGEN ---
This patient, Nael Frausto, was admitted to [facility] Surg Room 327-01. Patient/family oriented to hospital policies and general routines including ID bracelet, bed and alarms, visiting hours, pain management, procedures, bathroom and other care routines, personal items, smoking policy, room service/diet, and visiting hours. Information on how to activate the Rapid Response Team has been discussed. Patient/Family are encouraged to report perceived risks to care and to ask questions if they do not understand what they are told or what they should do.
[2025-04-10 06:59] LABS: Hematocrit 37.2 % (42.0-52.0); Hemoglobin 12.5 g/dL (14.0-18.0); Immature Granulocyte Percent A 0.5 % (0-0.5); Immature Platelet Fraction Pct 9.7 % (0.9-11.2); Lymphocytes Absolute Auto 1.79 K/mm3 (0.9-3.2); Mean Corpuscular HGB Conc 33.6 g/dl (32-36); Mean Corpuscular Hemoglobin 33.0 pg (26-34); Mean Corpuscular Volume 98.2 fl (80-100); Nucleated Red Blood Cells Absolute Auto 0.000 K/mm3 (0.0-0.012); Nucleated Red Blood Cells Perc 0.0 % (0.0-0.2); Platelet Count Result 100 k/mm3 (150-375); Red Blood Count 3.79 M/mm3 (4.6-6.20); White Blood Count 7.6 K/mm3 (4.5-10.0)
[2025-04-10 07:19] LABS: Alanine Aminotransferase 115 U/L (6-50); Albumin Level 3.8 g/dL (3.5-5.1); Alkaline Phosphatase 151 U/L (38-126); Anion Gap 12 mmol/L (4-12); Aspartate Amino Transferase 137 U/L (17-59); Bilirubin,Total 2.5 mg/dL (0.2-1.3); Blood Urea Nitrogen 4 mg/dL (9-20); Calcium 8.1 mg/dL (8.4-10.2); Carbon Dioxide 26 mmol/L (22-30); Chloride 98 mmol/L (98-107); Estimated CRCL calculation 269 ml/min; Estimated Glomerular Filt Rate > 60; Glucose 184 mg/dL (65-110); Magnesium 1.4 mg/dL (1.6-2.3); Potassium 3.4 mmol/L (3.4-5.0); Sodium 136 mmol/L (137-145); Total Protein 7.9 g/dL (6.3-8.2)
[2025-04-10 07:29] LABS: Procalcitonin 0.2 ng/mL
--- NOTE | 2025-04-10 08:56 | P.CONGI_ITS ---
Assessment and Plan Assessment and plan (1) Alcoholic cirrhosis: Qualifiers: Ascites presence: without ascites Qualified Code(s): K70.30 - Alcoholic cirrhosis of liver without ascites Code(s): K70.30 - Alcoholic cirrhosis of liver without ascites Status: Acute (2) Nausea and vomiting: Qualifiers: Vomiting type: bilious vomiting Qualified Code(s): R11.14 - Bilious vomiting Code(s): R11.2 - Nausea with vomiting, unspecified Status: Acute (3) Elevated LFTs: Code(s): R79.89 - Other specified abnormal findings of blood chemistry Status: Acute (4) Thrombocytopenia: Code(s): D69.6 - Thrombocytopenia, unspecified Status: Acute (5) Hematemesis: Qualifiers: Nausea presence: with nausea Qualified Code(s): K92.0 - Hematemesis Code(s): K92.0 - Hematemesis Status: Acute Plan 1. Cirrhosis/portal hypertension/elevated LFT's/nausea/vomiting/hematemesis/ETOH dependance/thrombocytopenia: Patient with a long Hx of alcohol use but did not quantify how long he has been drinking other than ?many years?. He states that he typically drinks multiple Lanny and Fireballs daily but also did not quantify total amount per day. CT this admission showed cirrhosis of the liver with portal venous hypertension. Mild improvement of LFTs since admission but still elevated showing total bilirubin 2.5, AST 184-->137, ALT 139-->115, alkaline phosphatase 208-->151, albumin 3.8. Platelets 100 INR 1.2. Ethyl alcohol on admission 217. Patient states that he only has nausea and vomiting if he does not drink which prompted his nausea and vomiting prior to admission as he had not drank alcohol in 24 hours. Patient has never been seen by hepatology. Patient states that he typically takes 3-4 extra Strength Tylenol daily. DDX: Mercy-Maki tear versus esophagitis versus variceal bleeding versus peptic ulcer disease * Thrombocytopenia likely secondary to cirrhosis * Patient needs to limit Tylenol use to less than 2000 mg daily given liver disease * Alcohol cessation strongly recommended * EGD ordered * Keep patient NPO * Continue PPI * Continue CIWA precautions and supportive care with antiemetics * Continue monitoring LFTs, elevation likely related to alcohol abuse but levels are not high enough to be fully consistent with alcoholic hepatitis * Given findings of portal hypertension patient will likely need to be started on a nonselective beta nadia based on endoscopic findings Thank you very much for allowing me to share in the care of this very nice patient. This report may have been done utilizing a voice recognition system. Attempts have been made to correct errors. However, there may be uncorrected grammatical, spelling, and recognition errors present. GI Consult Note Consult date/time: 04/10/25 08:56 Reason for consult: UGIB HPI: Nael Frausto is a 29 year old male with history of alcohol abuse. He presented to the ER today with complaints of ongoing nausea and vomiting and possible hematemesis. GI has been consulted for upper GI bleed. Patient was accompanied by his mother Bethany at bedside throughout the entire visit. Patient admits to drinking for ?many years? he states that he drinks multiple Lanny's and Fireballs daily but did not quantify. Patient states that he started having nausea and vomiting yesterday after skipping a day of drinking. Patient states that as long as he is drinking he does not have nausea and vomiting. He admits to 1 episode of hematemesis prior to admission. He denies abdominal pain, bloating, odynophagia, dysphagia, reflux, regurgitation, early satiety, or unexplained weight loss. Patient states that his appetite is good as long as he is drinking alcohol but has a poor appetite when he does not drink. He is having daily bowel movements that are formed and non Urgent. Denies diarrhea, constipation, hematochezia, or melena. Patient states he typically takes 3-4 extra Strength Tylenol daily. Denies any NSAID, aspirin, or anticoagulant use. He denies any tobacco or marijuana use. Family history negative for CRC or IBD. ENDOSCOPY HISTORY: Patient has never had an EGD or colonoscopy LABS AND STOOL STUDIES: Labs 04/10/2025: Sodium 136, potassium 3.4, BUN 4, creatinine 0.36, GFR >60, calcium 8.1, magnesium 1.4 WBC 8, Hgb 13, Hct 37, MCV 98, platelets 100, INR 1.2 Total bilirubin 2.5, AST 137, ALT 115, Alkaline Phos 151, albumin 3.8 Procalcitonin 0.2 and ethyl alcohol 217 IMAGING: CT abd/pelvis w/contrast 04/10/2025: IMPRESSION: 1. Cirrhosis of the liver with portal venous hypertension. 2. Gallbladder distention, which may be secondary to fasting. Correlate with physical exam to exclude acute cholecystitis. CT abd/pelvis w/contrast 01/10/2021: IMPRESSION: 1. Diffuse hepatic steatosis. Review of Systems 2 Constitutional: Constitutional: Reports as per HPI ENT: Reports as per HPI Cardiovascular: Cardiovascular: Reports as per HPI, Denies chest pain and Denies dyspnea Respiratory: Respiratory: Denies cough and Denies dyspnea Gastrointestinal: Gastrointestinal: Reports as per HPI Musculoskeletal: Musculoskeletal: Reports as per HPI Integumentary/Breasts: Skin/Breast: Reports as per HPI Psychiatric: Psychiatric: Reports as per HPI Endocrine: Endocrine: Reports no additional endocrine complaints Hematologic/Lymphatic: Hematologic/Lymphatic: Reports no additional hematologic/lymphatic complaints [facility] Social History Social History Smoking status: Never smoker Alcohol intake: current Drinks per week: 16 Substance use: never Substance use type: does not use Lack of Transportation: No Lack of Food: Never True Current Housing: I Have Housing Concerned About Future Housing: No Difficulty Paying Gas/Electric Bills: No Difficulty Paying for Meds: No Currently Unemployed: No Education: Decline to Answer Difficulty w/ Childcare or Family Care: No Spiritual care concerns: No Meds Home Medications and Allergies Home Medications ?Medication ?Instructions ?Recorded ?Confirmed ?Type No Home Medications 04/10/25 04/10/25 H istory Allergies Allergy/AdvReac Type Severity Reaction Status Date / Time No Known Allergies Allergy Verified 04/09/25 21:56 Vital Signs Vital Signs - 24 hr 04/09/25 21:51 04/09/25 22:03 04/09/25 22:04 Temperature 97.6 F Pulse Rate 102 H 101 H Respiratory Rate 18 27 H 25 H Blood Pressure 155/102 H Pulse Oximetry 98 98 98 Oxygen Delivery Room Air 04/09/25 22:08 04/09/25 22:15 04/09/25 22:16 Temperature Pulse Rate 105 H 101 H 106 H Respiratory Rate 19 22 H 17 Blood Pressure 155/102 H 144/97 H Pulse Oximetry 97 99 100 Oxygen Delivery 04/09/25 22:30 04/09/25 22:31 04/09/25 22:45 Temperature Pulse Rate 105 H 97 96 Respiratory Rate 24 H 30 H 21 H Blood Pressure 116/95 H 136/87 Pulse Oximetry 97 99 97 Oxygen Delivery 04/09/25 22:46 04/09/25 23:00 04/09/25 23:01 Temperature Pulse Rate 90 93 94 Respiratory Rate 22 H 23 H 20 Blood Pressure 135/80 Pulse Oximetry 97 99 Oxygen Delivery 04/10/25 00:17 04/10/25 03:18 04/10/25 05:30 Temperature 98.0 F Pulse Rate 110 H 112 H 98 Respiratory Rate 28 H 25 H 20 Blood Pressure 159/104 H 165/100 H 130/82 Pulse Oximetry 95 98 95 Oxygen Delivery Exam 2 Const: General: cooperative, healthy appearing, comfortable, no acute distress and well developed Orientation/consciousness: oriented to person, oriented to place, oriented to time and patient oriented x3 HENMT: Head: normal to inspection, normocephalic and atraumatic Mouth: Yes Normal oral and palatal mucosa present and Yes moist mucous membranes Eyes: General: appearance normal, both eyes and all related structures C onjunctivae: conjunctivae normal Sclera: sclerae normal Pupils: Equal, round and reactive pupils present Neck: Neck: normal visual inspection Chest: Chest palpation & inspection: normal inspection of the chest Resp: Effort & Inspection: normal respiratory effort and able to speak in complete sentences Auscultation: clear to auscultation bilaterally Cardio: Jugular venous distension: no JVD Rate: regular rate Rhythm: r egular rhythm Heart sounds: S1 normal heart sound present and S2 normal heart sound present GI: Inspection: distended GI Palp: Yes Soft to palpation, No Tenderness to palpation present (GI), No Guarding due to palpation present (GI) and Yes No hepatosplenomegaly present (unable to assess due to body habitus) A uscultation: normal bowel sounds Rectal Exam: deferred Skin: General skin exam: normal color and no rashes or lesions noted Neuro: General: oriented to person, oriented to place, oriented to time and patient oriented x3 Cranial nerves: Yes Equal, round and reactive pupils present Speech: normal speech Extrem: General: normal to inspection and no clubbing, cyanosis or edema Psych: Appearance: grossly normal and well kempt Affect: normal affect Results Labs 04/10/25 06:39 04/10/25 06:39 Labs: Short CBC 04/09/25 04/10/25 Range/Units 22:11 06:39 WBC 9.2 7.6 (4.5-10.0) K/mm3 Hgb 14.5 12.5 L (14.0-18.0) g/dL Hct 42.6 37.2 L (42.0-52.0) % Plt Count 130 L D 100 L (150-375) k/mm3 BMP 04/09/25 04/10/25 22:11 06:39 Sodium 138 136 L Potassium 3.6 3.4 Chloride 96 L 98 Carbon Dioxide 26 26 BUN 3 L D 4 L Creatinine 0.43 L 0.36 L Glucose 307 H 184 H Calcium 8.6 8.1 L Liver Function 04/09/25 04/10/25 Range/Units 22:11 06:39 Total Bilirubin 2.4 H 2.5 H (0.2-1.3) mg/dL AST 184 H 137 H (17-59) U/L ALT 139 H 115 H (6-50) U/L Alkaline Phosphatase 208 H 151 H (38-126) U/L Albumin 4.4 3.8 (3.5-5.1) g/dL
--- NOTE | 2025-04-10 09:02 | P.HP_ITS ---
H&P: HPI History of Present Illness Date/Time: 04/10/25 09:02 Chief Complaint: Hematemesis Narrative: The patient is a 25 year old man hx testicular cancer, ETOH abuse, who presented to the ED with nausea, frequent vomiting, and abdominal discomfort. No fevers, chills, or diarrhea. Also has an itching skin rash after working in the yard, possible poison ermias. Noticed blood in emesis so he came to the ED. Reported drinking 6 beers and additional shots daily He was given IV pantoprazole, Haldol, diazepam, and pantoprazole in the ED. Labs showed a Bilirubin of 2.4<2.5, Alk phos 208>115, ALT 139>115, AST 187>137. WBC normal. H&H 14.5/42.6>12.5/37.[address] 100. INR 1.2 After admission, noted to have tremors, tachycardic. Given diazepam for alcohol withdrawal. GI was consulted for blood in emesis and an EGD was done that showed reflux esophagitis, mild gastritis with mild portal hypertensive change. No bleeding. 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 Had chemotherapy at that time. Unsure about follow up Nonsmoker, denies recreational drugs PMFSH Past Medical History Medical History (Updated 04/11/25 @ 07:23 by Tiki Baker APRN) Testicular cancer Social History Social History Smoking status: Never smoker Alcohol intake: current Drinks per week: 16 Substance use: never Substance use type: does not use Lack of Transportation: No Lack of Food: Never True Current Housing: I Have Housing Concerned About Future Housing: No Difficulty Paying Gas/Electric Bills: No Difficulty Paying for Meds: No Currently Unemployed: No Education: Decline to Answer Difficulty w/ Childcare or Family Care: No Spiritual care concerns: No Meds Home Medications and Allergies Home Medications ?Medication ?Instructions ?Recorded ?Confirmed ?Type No Home Medications 04/10/25 04/10/25 H istory Allergies Allergy/AdvReac Type Severity Reaction Status Date / Time No Known Allergies Allergy Verified 04/10/25 13:52 Vital Signs Vital Signs - 24 hr 04/09/25 21:51 04/09/25 22:03 04/09/25 22:04 Temperature 97.6 F Pulse Rate 102 H 101 H Respiratory Rate 18 27 H 25 H Blood Pressure 155/102 H Pulse Oximetry 98 98 98 Oxygen Delivery Room Air 04/09/25 22:08 04/09/25 22:15 04/09/25 22:16 Temperature Pulse Rate 105 H 101 H 106 H Respiratory Rate 19 22 H 17 Blood Pressure 155/102 H 144/97 H Pulse Oximetry 97 99 100 Oxygen Delivery 04/09/25 22:30 04/09/25 22:31 04/09/25 22:45 Temperature Pulse Rate 105 H 97 96 Respiratory Rate 24 H 30 H 21 H Blood Pressure 116/95 H 136/87 Pulse Oximetry 97 99 97 Oxygen Delivery 04/09/25 22:46 04/09/25 23:00 04/09/25 23:01 Temperature Pulse Rate 90 93 94 Respiratory Rate 22 H 23 H 20 Blood Pressure 135/80 Pulse Oximetry 97 99 Oxygen Delivery 04/10/25 00:17 04/10/25 03:18 04/10/25 05:30 Temperature 98.0 F Pulse Rate 110 H 112 H 98 Respiratory Rate 28 H 25 H 20 Blood Pressure 159/104 H 165/100 H 130/82 Pulse Oximetry 95 98 95 Oxygen Delivery Exam Narrative: General - Awake but lethargic. Falls asleep easily. No acute distress Eyes - PERRLA, EOM intact ENT - No thrush, No erythema Neck - No noticeable or palpable swelling Lymph Nodes - No lymphadenopathy Cardiovascular - RRR no m/r/g, no JVD Lungs: Clear to auscultation, No wheezing, use of accessory muscles, no crackles or wheezes. Skin - Skin warm and dry, no wounds or rashes Abdomen - Normal bowel sounds, abdomen soft and nontender Extremities - No edema, cyanosis or clubbing Musculoskeletal - 5/5 strength, normal range of motion, no swollen or erythematous joints. Neurological ? Alert and oriented x 3, CN 2-12 grossly intact. Psych: Normal mood and affect H&P: Results Labs Labs: Short CBC 04/09/25 04/10/25 Range/Units 22:11 06:39 WBC 9.2 7.6 (4.5-10.0) K/mm3 Hgb 14.5 12.5 L (14.0-18.0) g/dL Hct 42.6 37.2 L (42.0-52.0) % Plt Count 130 L D 100 L (150-375) k/mm3 BMP 04/09/25 04/10/25 22:11 06:39 Sodium 138 136 L Potassium 3.6 3.4 Chloride 96 L 98 Carbon Dioxide 26 26 BUN 3 L D 4 L Creatinine 0.43 L 0.36 L Glucose 307 H 184 H Calcium 8.6 8.1 L Liver Function 04/09/25 04/10/25 Range/Units 22:11 06:39 Total Bilirubin 2.4 H 2.5 H (0.2-1.3) mg/dL AST 184 H 137 H (17-59) U/L ALT 139 H 115 H (6-50) U/L Alkaline Phosphatase 208 H 151 H (38-126) U/L Albumin 4.4 3.8 (3.5-5.1) g/dL Assessment and Plan Assessment and plan (1) Alcohol abuse with withdrawal: Code(s): F10.139 - Alcohol abuse with withdrawal, unspecified Status: Acute Assessment and Plan: Tremors, sweating, tachycardic, anxious s/p Diazepam 5mg in the ED, additional dose of diazepam this morning Schedule Ativan 1mg q8 x3 days Avoid Librium and diazepam with Librium when possible with liver failure but there is a shortage of IV Ativan CIWA Lorazepam 2mg q2 prn for withdrawal symtpoms Continue thiamine, folate Social work consult. Family interested in ETOH rehab options for him (2) Elevated bilirubin: Code(s): R17 - Unspecified jaundice Status: Acute Assessment and Plan: 04/10 CT ABD/pelvis showed cirrhosis with portal venous HTN. Bilirubin 2.5 --Follow LFT's, check INR (3) Hematemesis: Code(s): K92.0 - Hematemesis Status: Acute Assessment and Plan: H&H 14.5/42.6>12.5/37.2 GI consulted IV PPI BID Trend CBC (4) Testicular cancer: Code(s): C62.90 - Malignant neoplasm of unspecified testis, unspecified whether descended or undescended Status: Acute Quality VTE Prophylaxis VTE prophylaxis: mechanical ordered Hospitalist [facility] Advance Care Plan I have confirmed that the patient's Advanced Care Plan is present, code status is documented, or surrogate decision maker is listed in patient medical record.: Yes Medication Reconciliation I have utilized all available resources to obtain, update and review the patients current medications (includes all prescriptions, OTC, herbals, cannabis, and nutritional supplements).: Yes
[2025-04-10] MEDS: PANTOPRAZOLE SODIUM IV 40 MG VIAL IV PUSH (09:21)
[2025-04-10] MEDS: MAGNESIUM SULF 2 GM/WATER 50ML 2 GM/50 ML BAG IVPB (10:16)
[2025-04-10] MEDS: diazePAM INJ (*CRX) 10 MG/2 ML SYRINGE 5 MG IM (10:16)
[2025-04-10] MEDS: LACTATED RINGERS 1,000 ML 150 ML IV CONT (13:58)
--- NOTE | 2025-04-10 14:14 | WPDANESEPPF ---
Anes - Initial Pre Proc Eval Procedure: Operation Date: 04/10/25 15:15 Proposed Procedures p Esophagogastroduodenoscopy EGD - Guero Cavazos MD Date/Time: 04/10/25 14:14 Surgeon: Arti Diaz MD Pre Op Diagnosis: UGIB, Mild ileus, ETOH w/drawal Patient Data Age: 29 Gender: M Height: 1.68 m Weight: 98.8 kg Last Vital Signs Temp 97.8 F 04/10/25 13:55 Pulse 93 04/10/25 13:55 Resp 19 04/10/25 13:55 BP 155/89 H 04/10/25 13:55 Pulse Ox 98 04/10/25 13:55 O2 Del Method Room Air 04/10/25 13:55 Allergies Allergy/AdvReac Type Severity Reaction Status Date / Time No Known Allergies Allergy Verified 04/10/25 13:52 Home Medications ?Medication ?Instructions ?Recorded ?Confirmed ?Type No Home Medications 04/10/25 04/10/25 History Laboratory Tests 04/09/25 04/10/25 04/10/25 22:11 06:39 12:05 WBC 9.2 K/mm3 7.6 K/mm3 (4.5-10.0) (4.5-10.0) RBC 4.36 L M/mm3 3.79 L M/mm3 (4.6-6.20) (4.6-6.20) Hgb 14.5 g/dL 12.5 L g/dL (14.0-18.0) (14.0-18.0) Hct 42.6 % 37.2 L % (42.0-52.0) (42.0-52.0) MCV 97.7 fl 98.2 fl (80-100) (80-100) MCH 33.3 pg 33.0 pg (26-34) (26-34) MCHC 34.0 g/dl 33.6 g/dl (32-36) (32-36) RDW 12.6 % 12.8 % (11.5-14.5) (11.5-14.5) Plt Count 130 L D k/mm3 100 L k/mm3 (150-375) (150-375) MPV 11.5 H fl 11.1 H fl (7.4-10.4) (7.4-10.4) Immature Gran % (Auto) 0.4 % 0.5 % (0-0.5) (0-0.5) Neut % (Auto) 66.7 % 67.6 % (45.5-73.1) (45.5-73.1) Lymph % (Auto) 23.2 % 23.6 % (18.3-44.2) (18.3-44.2) [place] % (Auto) 8.3 % 7.0 % (2.6-8.5) (2.6-8.5) Eos % (Auto) 0.5 % 0.8 % (0-4.4) (0-4.4) Baso % (Auto) 0.9 % 0.5 % (0.2-1.2) (0.2-1.2) Lymph # (Auto) 2.14 K/mm3 1.79 K/mm3 (0.9-3.2) (0.9-3.2) [place] # (Auto) 0.8 H K/mm3 0.5 K/mm3 (0.1-0.6) (0.1-0.6) Eos # (Auto) 0.1 K/mm3 0.1 K/mm3 (0-0.3) (0-0.3) Baso # (Auto) 0.1 K/mm3 0.0 K/mm3 (0.0-0.1) (0.0-0.1) Abs Immat Gran (auto) 0.04 H K/mm3 0.04 H K/mm3 (0.00-0.031) (0.00-0.031) Absolute Neuts (auto) 6.2 K/mm3 5.1 K/mm3 (1.3-6.7) (1.3-6.7) Absolute Nucleated RBC 0.000 K/mm3 0.000 K/mm3 (0.0-0.012) (0.0-0.012) Nucleated RBC % 0.0 % 0.0 % (0.0-0.2) (0.0-0.2) % Immature Plt Fraction 9.9 % 9.7 % (0.9-11.2) (0.9-11.2) PT 15.5 H Seconds (11.1-14.7) INR 1.2 APTT 32.9 Seconds (22.3-36.8) Sodium 138 mmol/L 136 L mmol/L (137-145) (137-145) Potassium 3.6 mmol/L 3.4 mmol/L (3.4-5.0) (3.4-5.0) Chloride 96 L mmol/L 98 mmol/L (98-107) (98-107) Carbon Dioxide 26 mmol/L 26 mmol/L (22-30) (22-30) Anion Gap 16 H mmol/L 12 mmol/L (4-12) (4-12) BUN 3 L D mg/dL 4 L mg/dL (9-20) (9-20) Creatinine 0.43 L mg/dL 0.36 L mg/dL (0.7-1.3) (0.7-1.3) Estim Creat Clear Calc 231 ml/min 269 ml/min Estimated GFR > 60 > 60 (59 - ) (59 - ) Glucose 307 H mg/dL 184 H mg/dL (65-110) (65-110) POC Capillary Glucose 156 H mg/dl (65-105) Calcium 8.6 mg/dL 8.1 L mg/dL (8.4-10.2) (8.4-10.2) Phosphorus 2.9 mg/dL (2.5-4.5) Magnesium 1.4 L mg/dL (1.6-2.3) Total Bilirubin 2.4 H mg/dL 2.5 H mg/dL (0.2-1.3) (0.2-1.3) AST 184 H U/L 137 H U/L (17-59) (17-59) ALT 139 H U/L 115 H U/L (6-50) (6-50) Alkaline Phosphatase 208 H U/L 151 H U/L (38-126) (38-126) Total Protein 9.5 H g/dL 7.9 g/dL (6.3-8.2) (6.3-8.2) Albumin 4.4 g/dL 3.8 g/dL (3.5-5.1) (3.5-5.1) Procalcitonin 0.2 ng/mL Ethyl Alcohol 217 mg/dL (<10) Blood Type O Positive Antibody Screen Negative Patient hx anesthesia problems: none Family hx anesthesia problems: none Results Review: All pre-operative results and documents have been reviewed as part of the pre-operative evaluation. [facility] Social History Social History Smoking status: Never smoker Alcohol intake: current Drinks per week: 16 Substance use: never Substance use type: does not use Lack of Transportation: No Lack of Food: Never True Current Housing: I Have Housing Concerned About Future Housing: No Difficulty Paying Gas/Electric Bills: No Difficulty Paying for Meds: No Currently Unemployed: No Education: Decline to Answer Difficulty w/ Childcare or Family Care: No Spiritual care concerns: No Anes - Eval Final PreProcedure Day of Procedure 04/10/25 14:14 Patient weight: normal Lungs: normal air movement Airway: Mallampati scale class III Neurological: alert and oriented Last oral intake: >/= 8 hours ASA classification: III Emergent: no Anesthetic plan: proceed Anesthesia type and monitoring: general GIVS and standard monitoring Results Review: All pre-operative results and documents have been reviewed as part of the pre-operative evaluation. ETOH use/abuse, 4-8 beers/day, pt w hematemesis. Denies smoking. He is on the withdrawl protocol. Informed Consent: The patient's anesthetic plan and its attendant risks and benefits were discussed with the patient/family/POA. Questions were solicited and answers provided to the satisfaction of the patient/family/POA.
[2025-04-10] MEDS: LORazepam (*CRX) 1 MG TABLET PO ×2 (15:46→21:32)
[2025-04-10] MEDS: PANTOPRAZOLE 40 MG TABLET PO (21:32)
[2025-04-11] VITALS (7 sets, daily range): BP systolic 130–150; BP diastolic 75–92; PULSE 67–117; RESP 18–20; TEMP 36.3–36.6; O2SAT 95–100
[2025-04-11] MEDS: LACTATED RINGERS 1,000 ML 125 ML IV CONT ×3 (00:44→21:03)
[2025-04-11] MEDS: LORazepam (*CRX) 1 MG TABLET PO ×3 (05:32→21:03)
[2025-04-11 06:53] LABS: Hematocrit 36.1 % (42.0-52.0); Hemoglobin 12.1 g/dL (14.0-18.0); Immature Granulocyte Percent A 0.5 % (0-0.5); Immature Platelet Fraction Pct 11.0 % (0.9-11.2); Lymphocytes Absolute Auto 1.78 K/mm3 (0.9-3.2); Mean Corpuscular HGB Conc 33.5 g/dl (32-36); Mean Corpuscular Hemoglobin 33.2 pg (26-34); Mean Corpuscular Volume 99.2 fl (80-100); Nucleated Red Blood Cells Absolute Auto 0.000 K/mm3 (0.0-0.012); Nucleated Red Blood Cells Perc 0.0 % (0.0-0.2); Platelet Count Result 92 k/mm3 (150-375); Red Blood Count 3.64 M/mm3 (4.6-6.20); White Blood Count 7.8 K/mm3 (4.5-10.0)
[2025-04-11 07:03] LABS: INR 1.3; Prothrombin Time 16.7 Seconds (11.1-14.7)
[2025-04-11 07:25] LABS: Alanine Aminotransferase 92 U/L (6-50); Albumin Level 3.5 g/dL (3.5-5.1); Alkaline Phosphatase 135 U/L (38-126); Anion Gap 11 mmol/L (4-12); Aspartate Amino Transferase 113 U/L (17-59); Bilirubin,Total 3.2 mg/dL (0.2-1.3); Blood Urea Nitrogen 5 mg/dL (9-20); Calcium 8.0 mg/dL (8.4-10.2); Carbon Dioxide 22 mmol/L (22-30); Chloride 96 mmol/L (98-107); Estimated CRCL calculation 269 ml/min; Estimated Glomerular Filt Rate > 60; Glucose 160 mg/dL (65-110); Potassium 3.3 mmol/L (3.4-5.0); Sodium 129 mmol/L (137-145); Total Protein 7.5 g/dL (6.3-8.2)
[2025-04-11] MEDS: PANTOPRAZOLE 40 MG TABLET PO ×2 (09:55→21:02)
[2025-04-11] MEDS: THIAMINE HCL 200 MG/2 ML VIAL 100 MG IV PUSH (09:55)
[2025-04-11] MEDS: FOLIC ACID 1 MG/0.2 ML INJ IV PUSH (09:55)
--- NOTE | 2025-04-11 10:31 | P.PNIM_ITS ---
Progress Note: A&P Assessment and Plan (1) Alcohol abuse with withdrawal: Code(s): F10.139 - Alcohol abuse with withdrawal, unspecified Status: Acute Assessment and Plan: Tremors, sweating, tachycardic, anxious s/p Diazepam 5mg in the ED, additional dose of diazepam this morning Schedule Ativan 1mg q8 x3 days Avoid Librium and diazepam with Librium when possible with liver failure but there is a shortage of IV Ativan CIWA Lorazepam 2mg q2 prn for withdrawal symtpoms Continue thiamine, folate Social work consult. Family interested in ETOH rehab options for him. Patient not interested currently (2) Elevated bilirubin: Code(s): R17 - Unspecified jaundice Status: Acute Assessment and Plan: 04/10 CT ABD/pelvis showed cirrhosis with portal venous HTN. Bilirubin 2.5<3.2 --Follow LFT's --Hydroxyzine 25 prn for itching --Evidence of cirrhosis with portal venous HTN on CT (3) Hematemesis: Qualifiers: Nausea presence: with nausea Qualified Code(s): K92.0 - Hematemesis Code(s): K92.0 - Hematemesis Status: Acute Assessment and Plan: H&H 14.5/42.6>12.5/37.2 GI consulted IV PPI BID Trend CBC (4) Testicular cancer: Code(s): C62.90 - Malignant neoplasm of unspecified testis, unspecified whether descended or undescended Status: Acute Assessment and Plan: Remote hx metastatic testicular cancer Needs follow up Time Spent With Patient Time: 57 minutes Subjective Date/time seen: 04/11/25 10:31 Interval history: Tachy overnight to 117. No tremors this afternoon on scheduled ativan Receiving scheduled ativan 1mg q8 No active bleeding on EGD yesterday. Blood count about the same overnight Reports bright red blood with emesis again today. Check CBC this afternoon LFT's still elevated, bilirubin up to 3 Exam Narrative: General - Awake but lethargic. Falls asleep easily. No acute distress Eyes - PERRLA, EOM intact. Minimal jaundice ENT - No thrush, No erythema Neck - No noticeable or palpable swelling Lymph Nodes - No lymphadenopathy Cardiovascular - RRR no m/r/g, no JVD Lungs: Clear to auscultation, No wheezing, use of accessory muscles, no crackles Skin - Skin warm and dry, no wounds or rashes Abdomen - Normal bowel sounds, abdomen soft and nontender Extremities - No edema, cyanosis or clubbing Musculoskeletal - 5/5 strength, normal range of motion, no swollen or erythematous joints. Neurological ? Alert and oriented x 3, CN 2-12 grossly intact. Psych: Normal mood and affect Objective Data Vital Signs Vital Signs: Vital Signs - 24 hr 04/10/25 12:00 04/10/25 13:55 04/10/25 14:54 Temperature 97.8 F Pulse Rate 93 93 109 H Respiratory Rate 19 30 H Blood Pressure 155/89 H 118/75 Pulse Oximetry 98 98 Oxygen Delivery Room Air Room Air 04/10/25 15:04 04/10/25 15:14 04/10/25 15:25 Temperature 96.8 F L Pulse Rate 79 68 78 Respiratory Rate 24 H 24 H 16 Blood Pressure 125/74 131/74 124/55 L Pulse Oximetry 98 99 99 Oxygen Delivery Room Air Room Air 04/10/25 20:00 04/10/25 20:00 04/10/25 20:00 Temperature 97.8 F Pulse Rate 78 80 Respiratory Rate 16 20 Blood Pressure 124/55 L 128/72 Pulse Oximetry 99 98 Oxygen Delivery Room Air 04/10/25 20:00 04/11/25 00:00 04/11/25 00:00 Temperature 97.7 F Pulse Rate 75 105 H Respiratory Rate 20 Blood Pressure 136/79 Pulse Oximetry 95 Oxygen Delivery 04/11/25 00:00 04/11/25 04:00 04/11/25 04:00 Temperature 97.9 F Pulse Rate 67 99 Respiratory Rate 20 Blood Pressure 136/79 136/79 Pulse Oximetry 96 Oxygen Delivery 04/11/25 04:00 Temperature Pulse Rate 117 H Respiratory Rate Blood Pressure Pulse Oximetry Oxygen Delivery Intake/Output Intake/Output: Intake & Output 04/08/25 04/09/25 04/10/25 04/11/25 23:59 23:59 23:59 23:59 Intake Total 1000 2480 1340 Output Total 625 Balance 1000 2480 715 Meds/Results Medications: Active Medications Generic Name Dose Route Start Last Admin Trade Name Freq PRN Reason Stop Dose Admin Folic Acid 1 mg 04/11/25 09:00 04/11/25 09:55 Folic Acid 1 Mg/0.2 Ml Inj IV PUSH 1 mg DAILY TEAGAN Administration Lactated Ringer's 1,000 mls @ 125 mls/hr 04/10/25 02:55 04/11/25 09:53 Lr - Lactated Ringers Iv IV CONT 125 mls/hr .Q8H TEAGAN Administration Lorazepam 2 mg 04/10/25 09:31 Lorazepam (*Crx) 1 Mg Tablet PO Q2H PRN CIWA>8, HR>100, or DBP>100 Lorazepam 1 mg 04/10/25 14:00 04/11/25 05:32 Lorazepam (*Crx) 1 Mg Tablet PO 04/13/25 13:59 1 mg Q8H TEAGAN Administration Ondansetron HCl 4 mg 04/10/25 02:54 Ondansetron Inj 4 Mg/2 Ml Vial IV PUSH Q4H PRN Nausea Pantoprazole Sodium 40 mg 04/10/25 21:00 04/11/25 09:55 Pantoprazole 40 Mg Tablet PO 40 mg Q12HR TEAGAN Administration Thiamine HCl 100 mg 04/11/25 09:00 04/11/25 09:55 Thiamine Hcl 200 Mg/2 Ml Vial IV PUSH 100 mg DAILY TEAGAN Administration Radiology Results: ITS Impressions Abdomen/Pelvis CT 04/10/25 08:39 IMPRESSION: 1. Cirrhosis of the liver with portal venous hypertension. 2. Gallbladder distention, which may be secondary to fasting. Correlate with physical exam to exclude acute cholecystitis. Labs Labs: Laboratory Results - last 24 hr 04/10/25 04/10/25 04/10/25 12:05 16:39 19:38 WBC RBC Hgb Hct MCV MCH MCHC RDW Plt Count MPV Immature Gran % (Auto) Neut % (Auto) Lymph % (Auto) [place] % (Auto) Eos % (Auto) Baso % (Auto) Lymph # (Auto) [place] # (Auto) Eos # (Auto) Baso # (Auto) Abs Immat Gran (auto) Absolute Neuts (auto) Absolute Nucleated RBC Nucleated RBC % % Immature Plt Fraction PT INR Sodium Potassium Chloride Carbon Dioxide Anion Gap BUN Creatinine Estim Creat Clear Calc Estimated GFR Glucose POC Capillary Glucose 156 H 163 H 182 H Calcium Total Bilirubin Direct Bilirubin AST ALT Alkaline Phosphatase Total Protein Albumin 04/11/25 04/11/25 00:13 05:51 WBC 7.8 RBC 3.64 L Hgb 12.1 L Hct 36.1 L MCV 99.2 MCH 33.2 MCHC 33.5 RDW 12.5 Plt Count 92 L MPV 12.1 H Immature Gran % (Auto) 0.5 Neut % (Auto) 67.5 Lymph % (Auto) 22.8 [place] % (Auto) 7.3 Eos % (Auto) 1.3 Baso % (Auto) 0.6 Lymph # (Auto) 1.78 [place] # (Auto) 0.6 Eos # (Auto) 0.1 Baso # (Auto) 0.1 Abs Immat Gran (auto) 0.04 H Absolute Neuts (auto) 5.3 Absolute Nucleated RBC 0.000 Nucleated RBC % 0.0 % Immature Plt Fraction 11.0 PT 16.7 H INR 1.3 Sodium 129 L Potassium 3.3 L Chloride 96 L Carbon Dioxide 22 Anion Gap 11 BUN 5 L Creatinine 0.36 L Estim Creat Clear Calc 269 Estimated GFR > 60 Glucose 160 H POC Capillary Glucose 174 H Calcium 8.0 L Total Bilirubin 3.2 H Direct Bilirubin 0.4 H AST 113 H ALT 92 H Alkaline Phosphatase 135 H Total Protein 7.5 Albumin 3.5 Quality VTE Prophylaxis VTE prophylaxis: mechanical ordered Hospitalist MIPS Advance Care Plan I have confirmed that the patient's Advanced Care Plan is present, code status is documented, or surrogate decision maker is listed in patient medical record.: Yes Medication Reconciliation I have utilized all available resources to obtain, update and review the patients current medications (includes all prescriptions, OTC, herbals, cannabis, and nutritional supplements).: Yes
[2025-04-11] MEDS: POTASSIUM CHLORIDE 20 MEQ ER TABLET 40 MEQ PO (12:10)
[2025-04-11 16:26] LABS: Hematocrit 37.6 % (42.0-52.0); Hemoglobin 12.9 g/dL (14.0-18.0); Immature Granulocyte Percent A 0.6 % (0-0.5); Lymphocytes Absolute Auto 1.30 K/mm3 (0.9-3.2); Mean Corpuscular HGB Conc 34.3 g/dl (32-36); Mean Corpuscular Hemoglobin 33.4 pg (26-34); Mean Corpuscular Volume 97.4 fl (80-100); Nucleated Red Blood Cells Absolute Auto 0.000 K/mm3 (0.0-0.012); Nucleated Red Blood Cells Perc 0.0 % (0.0-0.2); Platelet Count Result 103 k/mm3 (150-375); Red Blood Count 3.86 M/mm3 (4.6-6.20); White Blood Count 7.0 K/mm3 (4.5-10.0)
--- NOTE | 2025-04-11 17:38 | WPDGIPROGNO ---
Progress Note: A&P Assessment and Plan (1) Alcoholic cirrhosis: Qualifiers: Ascites presence: without ascites Qualified Code(s): K70.30 - Alcoholic cirrhosis of liver without ascites Code(s): K70.30 - Alcoholic cirrhosis of liver without ascites Status: Acute Assessment and Plan: with also alcoholic hepatitis but inr 1.3, bili 3, normal renal function- low MELD score and discriminant function continue supportive care, nutrition, thiamine will follow as needed he can see us in office after discharge ideally he needs outpatient rehab to stop drinking (2) Alcoholic hepatitis: Code(s): K70.10 - Alcoholic hepatitis without ascites Status: Acute Assessment and Plan: nutrition (3) Esophagitis: Code(s): K20.90 - Esophagitis, unspecified without bleeding Status: Acute Assessment and Plan: on ppi daily no varices needs to stop drinking altogether (4) Coffee ground emesis: Code(s): K92.0 - Hematemesis Status: Acute (5) Elevated LFTs: Code(s): R79.89 - Other specified abnormal findings of blood chemistry Status: Acute (6) Alcohol use disorder: Code(s): F10.90 - Alcohol use, unspecified, uncomplicated Status: Acute Assessment and Plan: [facility] protocol (7) Testicular cancer: Code(s): C62.90 - Malignant neoplasm of unspecified testis, unspecified whether descended or undescended Status: Acute Assessment and Plan: remote history Subjective Date/time seen: 04/11/25 17:38 Interval history: egd yesterday with esophagitis, no varices, had mild portal HTN gastropathy, no signs of bleeding he is comfortable today, resting Review of Systems Review of Systems: All systems reviewed & are unremarkable except as noted in HPI and below Exam Const: General: comfortable and no acute distress Other: awake but lethargic HENMT: Face/Nose/Sinus: Normal nares present Eyes: General: appearance normal, both eyes and all related structures Neck: Neck: supple Resp: Auscultation: clear to auscultation bilaterally Cardio: Rate: regular rate Rhythm: regular rhythm GI: Inspection: non-distended GI Palp: Yes Soft to palpation and No Tenderness to palpation present (GI) Skin: Other: mild jaundice Neuro: Speech: normal speech Extrem: General: normal to inspection Psych: Mental Status: mental status grossly normal Objective Data Vital Signs Vital Signs: Vital Signs - 24 hr 04/10/25 20:00 04/10/25 20:00 04/10/25 20:00 Temperature 97.8 F Pulse Rate 78 80 Respiratory Rate 16 20 Blood Pressure 124/55 L 128/72 Pulse Oximetry 99 98 Oxygen Delivery Room Air 04/10/25 20:00 04/11/25 00:00 04/11/25 00:00 Temperature 97.7 F Pulse Rate 75 105 H Respiratory Rate 20 Blood Pressure 136/79 Pulse Oximetry 95 Oxygen Delivery 04/11/25 00:00 04/11/25 04:00 04/11/25 04:00 Temperature 97.9 F Pulse Rate 67 99 Respiratory Rate 20 Blood Pressure 136/79 136/79 Pulse Oximetry 96 Oxygen Delivery 04/11/25 04:00 04/11/25 08:00 04/11/25 08:00 Temperature Pulse Rate 117 H Respiratory Rate Blood Pressure 136/79 Pulse Oximetry Oxygen Delivery Room Air 04/11/25 08:00 04/11/25 08:00 04/11/25 12:00 Temperature 97.9 F 97.4 F L Pulse Rate 117 H 92 97 Respiratory Rate 18 18 Blood Pressure 130/75 150/87 H Pulse Oximetry 98 100 Oxygen Delivery 04/11/25 12:00 04/11/25 12:00 04/11/25 16:00 Temperature Pulse Rate 97 Respiratory Rate Blood Pressure 150/87 H 146/84 H Pulse Oximetry Oxygen Delivery 04/11/25 16:00 Temperature Pulse Rate 82 Respiratory Rate Blood Pressure Pulse Oximetry Oxygen Delivery Intake/Output Intake/Output: Intake & Output 04/08/25 04/09/25 04/10/25 04/11/25 23:59 23:59 23:59 23:59 Intake Total 1000 2480 1580 Output Total 625 Balance 1000 2480 955 Meds/Results Medications: Active Medications Generic Name Dose Route Start Last Admin Trade Name Freq PRN Reason Stop Dose Admin Dextrose 12.5 gm 04/11/25 15:47 Dextrose 50% 25 Gm/50 Ml Syringe IV PUSH PRN PRN Hypoglycemia Protocol Folic Acid 1 mg 04/11/25 09:00 04/11/25 09:55 Folic Acid 1 Mg/0.2 Ml Inj IV PUSH 1 mg DAILY TEAGAN Administration Glucagon 1 mg 04/11/25 15:47 Glucagon For Inj 1 Mg Vial IM PRN PRN Hypoglycemia Protocol Glucose 15 gm 04/11/25 15:47 Glucose Oral Gel 15 Gm Of Glucse In 37.5 Gm Tube PO PRN PRN Hypoglycemia Protocol Hydroxyzine HCl 25 mg 04/11/25 15:39 Hydroxyzine Hcl 25 Mg Tablet PO Q6H PRN Itching Lactated Ringer's 1,000 mls @ 125 mls/hr 04/10/25 02:55 04/11/25 11:18 Lr - Lactated Ringers Iv IV CONT Not Given .Q8H TEAGAN Dextrose 1,000 mls @ 100 mls/hr 04/11/25 15:47 Dextrose 5% 1,000 Ml IVPB PRN PRN Hypoglycemia Protocol Insulin Aspart 2 - 5 units 04/11/25 17:00 04/11/25 17:16 Insulin Aspart (*Bkc) 100 Units/Ml SUB-Q Not Given TIDWM TEAGAN Protocol Insulin Aspart 1 - 2 units 04/11/25 21:00 Insulin Aspart (*Bkc) 100 Units/Ml SUB-Q HS [facility] Protocol Lorazepam 2 mg 04/10/25 09:31 Lorazepam (*Crx) 1 Mg Tablet PO Q2H PRN CIWA>8, HR>100, or DBP>100 Lorazepam 1 mg 04/10/25 14:00 04/11/25 14:55 Lorazepam (*Crx) 1 Mg Tablet PO 04/13/25 13:59 1 mg Q8H TEAGAN Administration Ondansetron HCl 4 mg 04/10/25 02:54 Ondansetron Inj 4 Mg/2 Ml Vial IV PUSH Q4H PRN Nausea Pantoprazole Sodium 40 mg 04/10/25 21:00 04/11/25 09:55 Pantoprazole 40 Mg Tablet PO 40 mg Q12HR TEAGAN Administration Propranolol HCl 20 mg 04/11/25 21:00 Propranolol Hcl 20 Mg Tablet PO Q12HR TEAGNA Thiamine HCl 100 mg 04/11/25 09:00 04/11/25 09:55 Thiamine Hcl 200 Mg/2 Ml Vial IV PUSH 100 mg DAILY TEAGAN Administration Radiology Results: ITS Impressions Abdomen/Pelvis CT 04/10/25 08:39 IMPRESSION: 1. Cirrhosis of the liver with portal venous hypertension. 2. Gallbladder distention, which may be secondary to fasting. Correlate with physical exam to exclude acute cholecystitis. Labs Labs: Laboratory Results - last 24 hr 04/10/25 04/11/25 04/11/25 19:38 00:13 05:51 WBC 7.8 RBC 3.64 L Hgb 12.1 L Hct 36.1 L MCV 99.2 MCH 33.2 MCHC 33.5 RDW 12.5 Plt Count 92 L MPV 12.1 H Immature Gran % (Auto) 0.5 Neut % (Auto) 67.5 Lymph % (Auto) 22.8 [place] % (Auto) 7.3 Eos % (Auto) 1.3 Baso % (Auto) 0.6 Lymph # (Auto) 1.78 [place] # (Auto) 0.6 Eos # (Auto) 0.1 Baso # (Auto) 0.1 Abs Immat Gran (auto) 0.04 H Absolute Neuts (auto) 5.3 Absolute Nucleated RBC 0.000 Nucleated RBC % 0.0 % Immature Plt Fraction 11.0 PT 16.7 H INR 1.3 Sodium 129 L Potassium 3.3 L Chloride 96 L Carbon Dioxide 22 Anion Gap 11 BUN 5 L Creatinine 0.36 L Estim Creat Clear Calc 269 Estimated GFR > 60 Glucose 160 H POC Capillary Glucose 182 H 174 H Calcium 8.0 L Total Bilirubin 3.2 H Direct Bilirubin 0.4 H AST 113 H ALT 92 H Alkaline Phosphatase 135 H Total Protein 7.5 Albumin 3.5 04/11/25 04/11/25 11:36 16:07 WBC 7.0 RBC 3.86 L Hgb 12.9 L Hct 37.6 L MCV 97.4 MCH 33.4 MCHC 34.3 RDW 12.2 Plt Count 103 L MPV 12.1 H Immature Gran % (Auto) 0.6 H Neut % (Auto) 72.7 Lymph % (Auto) 18.7 [place] % (Auto) 6.7 Eos % (Auto) 0.9 Baso % (Auto) 0.4 Lymph # (Auto) 1.30 [place] # (Auto) 0.5 Eos # (Auto) 0.1 Baso # (Auto) 0.0 Abs Immat Gran (auto) 0.04 H Absolute Neuts (auto) 5.1 Absolute Nucleated RBC 0.000 Nucleated RBC % 0.0 % Immature Plt Fraction PT INR Sodium Potassium Chloride Carbon Dioxide Anion Gap BUN Creatinine Estim Creat Clear Calc Estimated GFR Glucose POC Capillary Glucose 209 H Calcium Total Bilirubin Direct Bilirubin AST ALT Alkaline Phosphatase Total Protein Albumin
[2025-04-11] MEDS: PROPRANOLOL HCL 20 MG TABLET PO (21:03)
[2025-04-12] VITALS: PULSE 80
[2025-04-12 04:00] VITALS: BP 142/87; PULSE 81; PULSE 88; RESP 16; TEMP 36.2; O2SAT 98
[2025-04-12] MEDS: LORazepam (*CRX) 1 MG TABLET PO (05:12)
[2025-04-12 06:47] LABS: Hematocrit 36.8 % (42.0-52.0); Hemoglobin 12.4 g/dL (14.0-18.0); Immature Granulocyte Percent A 0.9 % (0-0.5); Immature Platelet Fraction Pct 9.6 % (0.9-11.2); Lymphocytes Absolute Auto 1.98 K/mm3 (0.9-3.2); Mean Corpuscular HGB Conc 33.7 g/dl (32-36); Mean Corpuscular Hemoglobin 33.2 pg (26-34); Mean Corpuscular Volume 98.4 fl (80-100); Nucleated Red Blood Cells Absolute Auto 0.000 K/mm3 (0.0-0.012); Nucleated Red Blood Cells Perc 0.0 % (0.0-0.2); Platelet Count Result 111 k/mm3 (150-375); Red Blood Count 3.74 M/mm3 (4.6-6.20); White Blood Count 9.2 K/mm3 (4.5-10.0)
[2025-04-12 07:12] LABS: Alanine Aminotransferase 90 U/L (6-50); Albumin Level 3.7 g/dL (3.5-5.1); Alkaline Phosphatase 163 U/L (38-126); Anion Gap 9 mmol/L (4-12); Aspartate Amino Transferase 98 U/L (17-59); Bilirubin,Total 2.8 mg/dL (0.2-1.3); Blood Urea Nitrogen 6 mg/dL (9-20); Calcium 8.9 mg/dL (8.4-10.2); Carbon Dioxide 23 mmol/L (22-30); Chloride 98 mmol/L (98-107); Cholesterol 229 mg/dL (0-200); Estimated CRCL calculation 235 ml/min; Estimated Glomerular Filt Rate > 60; Glucose 226 mg/dL (65-110); HDL Direct 31 mg/dL; Potassium 3.7 mmol/L (3.4-5.0); Sodium 130 mmol/L (137-145); Total Protein 7.8 g/dL (6.3-8.2); Triglycerides 171 mg/dL (<150)
[2025-04-12 07:47] LABS: Hemoglobin A1C 8.8 % (<5.7)
[2025-04-12 08:00] VITALS: BP 143/96; PULSE 87; RESP 18; TEMP 36.7; O2SAT 99
[2025-04-12] MEDS: PROPRANOLOL HCL 20 MG TABLET PO (09:15)
[2025-04-12] MEDS: PANTOPRAZOLE 40 MG TABLET PO (09:15)
[2025-04-12] MEDS: THIAMINE HCL 200 MG/2 ML VIAL 100 MG IV PUSH (09:15)
[2025-04-12] MEDS: FOLIC ACID 1 MG/0.2 ML INJ IV PUSH (09:16)
--- NOTE | 2025-04-12 09:41 | P.DS_ITS ---
DS: Admitting Diagnosis Discharge Date 04/12/2025 Admitting Diagnosis Hematemesis DS: Discharge Diagnosis Discharge Diagnosis (1) Alcohol abuse with withdrawal: Code(s): F10.139 - Alcohol abuse with withdrawal, unspecified Status: Acute DS: Summary Hospital Course Reason for hospitalization: Copied from [facility] 04/10: The patient is a 25 year old man hx testicular cancer, ETOH abuse, who presented to the ED with nausea, frequent vomiting, and abdominal discomfort. No fevers, chills, or diarrhea. Also has an itching skin rash after working in the yard, possible poison ermias. Noticed blood in emesis so he came to the ED. Reported drinking 6 beers and additional shots daily He was given IV pantoprazole, Haldol, diazepam, and pantoprazole in the ED. Labs showed a Bilirubin of 2.4<2.5, Alk phos 208>115, ALT 139>115, AST 187>137. WBC normal. H&H 14.5/42.6>12.5/37.[address] 100. INR 1.2 After admission, noted to have tremors, tachycardic. Given diazepam for alcohol withdrawal. GI was consulted for blood in emesis and an EGD was done that showed reflux esophagitis, mild gastritis with mild portal hypertensive change. No bleeding. 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 Had chemotherapy at that time. Unsure about follow up Nonsmoker, denies recreational drugs Hospital Course: Alcohol abuse with withdrawal: Tremors, sweating, tachycardic, anxious s/p Diazepam 5mg in the ED, and continued. Scheduled Ativan 1mg q8 x3 days Avoiding Librium and diazepam with Librium when possible with liver failure but there is a shortage of IV Ativan. Monitored on CIWA with improvement Lorazepam prn for discharge, tapered dose for withdrawal symptoms Continued thiamine, folate Social work consulted. Family interested in ETOH rehab options for him. Patient not interested during admission but said he planned to quit drinking and was going to look into individual counseling Elevated bilirubin: Cirrhosis 04/10 CT ABD/pelvis showed 1. Cirrhosis of the liver with portal venous hypertension. 2. Gallbladder distention, which may be secondary to fasting. Correlate with physical exam to exclude acute cholecystitis. Bilirubin 2.5<3.2>2.8 --Follow LFT's --Hydroxyzine 25 prn for itching during admission --Discussed how to recognize worsening jaundice and need for follow up labs and alcohol cessation --Discussed risk of any further alcohol consumption. Aware of risk of fulminant liver failure requiring transplant and Hypertension Blood pressure elevated, 124/74-164/100, also in the setting of alcohol withdrawal Started low dose coreg 3.125 BID, titrate as able. Would also treat portal venous HTN Hematemesis: H&H 14.5/42.6>12.5/37.2. Scant blood, did not require intervention GI consulted. EGD 04/10 showed portal hypertensive gastropathy, esophagitis --Continued PPI Diabetes Blood sugars noted to be elevated during admission, 200's. 04/12 HgbA1c 8.8 Unable to be seen by diabetes education during admission, will need outpatient education Discussed association with alcohol use Started metformin. Increase dose as able Sent home with a glucometer. Discussed diet Hx Testicular cancer: Remote hx metastatic testicular cancer Needs follow up with PCP Status at Discharge Cognitive/behavioral status at discharge: A&Ox4 Time Spent with Patient Time attestation: Total time spent providing and/or coordinating discharge services: 58 mintutes Exam Narrative: General - Awake and alert. No acute distress Eyes - PERRLA, EOM intact ENT - No thrush, No erythema Neck - No noticeable or palpable swelling Lymph Nodes - No lymphadenopathy Cardiovascular - RRR no m/r/g, no JVD Lungs: Clear to auscultation, No wheezing, use of accessory muscles, no crackles Skin - Skin warm and dry, no wounds or rashes Abdomen - Normal bowel sounds, abdomen soft and nontender Extremities - No edema, cyanosis or clubbing Musculoskeletal - 5/5 strength, normal range of motion, no swollen or erythematous joints. Neurological ? Alert and oriented x 3, CN 2-12 grossly intact. Psych: Normal mood and affect DS: Data Data Completed and Pending Labs on day of discharge: Labs from last 24 hours 04/12/25 04/12/25 04/11/25 07:44 06:19 20:52 WBC 9.2 RBC 3.74 L Hgb 12.4 L Hct 36.8 L MCV 98.4 MCH 33.2 MCHC 33.7 RDW 12.2 Plt Count 111 L MPV 11.7 H Immature Gran % (Auto) 0.9 H Neut % (Auto) 67.0 Lymph % (Auto) 21.5 [place] % (Auto) 8.7 H Eos % (Auto) 1.1 Baso % (Auto) 0.8 Lymph # (Auto) 1.98 [place] # (Auto) 0.8 H Eos # (Auto) 0.1 Baso # (Auto) 0.1 Abs Immat Gran (auto) 0.08 H Absolute Neuts (auto) 6.2 Absolute Nucleated RBC 0.000 Nucleated RBC % 0.0 % Immature Plt Fraction 9.6 Sodium 130 L Potassium 3.7 Chloride 98 Carbon Dioxide 23 Anion Gap 9 BUN 6 L Creatinine 0.42 L Estim Creat Clear Calc 235 Estimated GFR > 60 Glucose 226 H POC Capillary Glucose 206 H 223 H Hemoglobin A1c 8.8 H Calcium 8.9 Total Bilirubin 2.8 H Direct Bilirubin 0.2 AST 98 H ALT 90 H Alkaline Phosphatase 163 H Total Protein 7.8 Albumin 3.7 Triglycerides 171 H Cholesterol 229 H LDL Cholesterol Direct 166 HDL Direct 31 04/11/25 04/11/25 16:07 11:36 WBC 7.0 RBC 3.86 L Hgb 12.9 L Hct 37.6 L MCV 97.4 MCH 33.4 MCHC 34.3 RDW 12.2 Plt Count 103 L MPV 12.1 H Immature Gran % (Auto) 0.6 H Neut % (Auto) 72.7 Lymph % (Auto) 18.7 [place] % (Auto) 6.7 Eos % (Auto) 0.9 Baso % (Auto) 0.4 Lymph # (Auto) 1.30 [place] # (Auto) 0.5 Eos # (Auto) 0.1 Baso # (Auto) 0.0 Abs Immat Gran (auto) 0.04 H Absolute Neuts (auto) 5.1 Absolute Nucleated RBC 0.000 Nucleated RBC % 0.0 % Immature Plt Fraction Sodium Potassium Chloride Carbon Dioxide Anion Gap BUN Creatinine Estim Creat Clear Calc Estimated GFR Glucose POC Capillary Glucose 209 H Hemoglobin A1c Calcium Total Bilirubin Direct Bilirubin AST ALT Alkaline Phosphatase Total Protein Albumin Triglycerides Cholesterol LDL Cholesterol Direct HDL Direct Discharge Plan Discharge Attending physician on discharge: Tiki Baker Consulting providers: Timothy Rivera; Guero Cavazos; Azael William; Susan Miguel; Mack Leslie V. Discharging Clinician: Tiki Baker Discharge Date/Time: 04/12/25 09:42 Patient Disposition: Home Activity: may shower Diet: diabetic Discharge Instructions: Follow up with Your PCP in the office in 1-2 weeks. You will need repeat liver function tests at that time. You can also follow up with Dr. Cavazos (GI/Liver) in the office in 2-4 weeks Check your blood sugar daily before breakfast. Patient Instructions: Antibiotic Form, Basic Carbohydrate Counting (DC), Meal Planning with Diabetes Exchanges (DC) Patient Language: Slovak Stand Alone Forms: General Discharge Information Follow-up/Referrals: PHYSICIAN,INFORMATION CLERK [employer] [Primary Care Provider, Internal Medicine] - 2 Weeks Guero Cavazos MD [Physician, Gastroenterology] - 2 Weeks Discharge Medications: New carvedilol 6.25 mg tablet 3.125 mg PO BID Qty: 60 0RF Rx Instructions: must administer with a meal/food metformin [Glucophage XR] 500 mg tablet extended release 24 hr 500 mg PO DAILY Qty: 30 0RF (DME) lancets [OneTouch Delica Plus Lancet] 33 gauge misc See Rx Instructions .Route Qty: 90 0RF Rx Instructions: As directed For checking blood sugar daily before breakfast (DME) OneTouch Verio test strips Strip See Rx Instructions .Route Qty: 100 0RF Rx Instructions: As directed For checking blood sugar daily lorazepam 1 mg tablet 1 mg PO Q8H PRN (Reason: alcohol withdrawal) 7 Days Qty: 11 0RF Rx Instructions: Take 1 tab three times a day for 1 day, then twice a day for 2 days, daily for 2 days, then daily as needed for 3 days (DME) blood-glucose meter Misc See Rx Instructions .Route Qty: 1 0RF Rx Instructions: As directed--as covered by insurance pantoprazole 40 mg tablet,delayed release (DR/EC) 40 mg PO QAM Qty: 90 0RF Other Ambulatory Orders: Basic Metabolic Panel (Routine) Timeframe: 1 Week Location: Determined by Patient Ordered By: Tiki Baker Hepatic Panel (Routine) Timeframe: 1 Week Location: Determined by Patient Ordered By: Tiki Baker Date of admission: 04/10/25 11:40 Primary Care Provider: PHYSICIAN,INFORMATION CLERK [employer] Admitting Provider: Arti Diaz Attending physician on admission: Tiki Baker Condition: Stable Quality VTE Prophylaxis VTE prophylaxis: mechanical ordered Hospitalist MIPS Heart Failure (Exclusion) Patient has history of Heart Transplant or Left Ventricular Assistive Device?: No IF YES, STOP HERE Heart Failure (Qualifier) Patient has current or prior documentation of LVEF less than or equal to 40%, or mod/servere depressed LVSF?: No IF NO, STOP HERE
--- NOTE | 2025-04-20 15:42 | PCCDE ---
04/20/25: DM educator call completed. Patient aware glucose elevated during inpatient stay. Denies questions. States to having PCP - unclear re: follow up appt Enc'd to inquire re: Outpatient DM education.
== END 2025-04-12 10:35 | disposition home or self-care (01) | DRG 280 ==
LOC: ANHED 23:44 → ANH3MEDSUR 04-10 03:45
PROVIDERS: Internal Medicine Gastroenterology; Admitting Provider General Practice; Emergency Provider Emergency Medicine; Visit Provider Nurse Practitioner Acute Care
PROC: 0DJ08ZZ Inspection of Upper Intestinal Tract, Via Natural or Artificial Opening Endoscopic (ICD-10-PCS; principal; 2025-04-10 15:15)
DX: K70.30 Alcoholic cirrhosis of liver without ascites (principal); K70.10 Alcoholic hepatitis without ascites; K21.00 Gastro-esophageal reflux disease with esophagitis, without bleeding; K29.70 Gastritis, unspecified, without bleeding; K92.0 Hematemesis; D69.59 Other secondary thrombocytopenia; F10.239 Alcohol dependence with withdrawal, unspecified; K31.89 Other diseases of stomach and duodenum; K76.6 Portal hypertension; L23.7 Allergic contact dermatitis due to plants, except food; R00.0 Tachycardia, unspecified; R79.89 Other specified abnormal findings of blood chemistry; Z85.47 Personal history of malignant neoplasm of testis
CPT/HCPCS: 36415; 74177; 80048; 80053; 80061; 80076; 82077; 82948; 83036; 83735; 84100; 84145; 85025; 85055; 85610; 85730; 86850; 86900; 86901; 96361; 96374; 96375; 99285; A9270; G0378; G0379; J1630; J2003; J2470; J2704; J3360; J3411; J3475; J7120; Q9967

== ENCOUNTER 2025-07-08 07:37 | Emergency (ER) | payer OTHER, SELFPAY ==
--- OUTSIDE RECORDS SUMMARY | 2025-07-08 07:38 | XMS_ITS | Clinical Summary ---
Author Organization [facility] Address [address] [place] [address] Care Team Providers Care President Educational Institution Name Role Phone Unavailable Primary Care Provider Unavailabl e Source Comments [facility],non-owned Affiliates and Associated Physician Practices is amultiple site organization consisting of ambulatory clinics and hospital sitesin [place], [place], [place] and [place]. This disclosure is being madepursuant to the Care Everywhere program and may not contain all information available regarding this patient. Last updated 18.[facility] Allergies No known active allergies Medications * [...] from the original. *Miguel's family needs a Malay-speaking oyster farmer for each visit* Miguel's cell: [phone] Miguel's father's cell at [phone] Patient has signed HIPAA release of information [...] 800 mg q6hr - Will transition from [employer] TECHNICIAN to oral oxycodone Access: PIV Assessment [...] HD unstable, consider fluid bolus Neuro/Pain: -Dilaudid [employer] TECHNICIAN -150 basal, 150 push, 10 min lockout -Has pressed considerable number of times -wean basal to 100 as the etiology of the pain is likely inflammatory -Narcan drip [employer] TECHNICIAN -Motrin 800 mg PO q6 -optimize, [...] - Motrin 800 mg q6hr - Dilaudid [employer] TECHNICIAN with basal 200mcg and 100mcg bolus with 10 minute lockout, plan to wean [employer] TECHNICIAN today Access: PIV Assessment & Plan [...] site for erythema and tenderness Neuro/Pain: -Dilaudid [employer] TECHNICIAN -200 basal, 150 push, 10 min lockout -consider weaning basal if he doesn't press [employer] W[employer] TECHNICIAN in an hour -Narcan drip [employer] TECHNICIAN -Motrin 800 mg PO q6 Endo: [...] unstable) Assessment & Plan (09/07/2014 10:56 AM EXECUTIVE VP): Assessment Miguel Guan is a 18 y.o. [...] home. Assessment & Plan (09/05/2014 10:36 AM EXECUTIVE VP): Assessment Miguel Guan is a 18 y.o. [...] pain Assessment & Plan (09/08/2014 7:38 AM EXECUTIVE VP): Assessment: 18 year old with metastatic testicular [...] pain. Assessment & Plan (08/18/2014 8:59 AM EXECUTIVE VP): Germ cell carcinoma of testicle Assessment: Miguel [...] for pain/SALAZAR - Monitor I/Os Sofi Mando [place] [employer], [employer]-3 Assessment & Plan (08/17/2014 6:32 PM EXECUTIVE VP): Assessment: 18 year old male with metastatic [...] oximetry Assessment & Plan (08/17/2014 7:02 AM EXECUTIVE VP): Assessment: 18 year old male with diagnosis [...] I/Os Assessment & Plan (08/16/2014 1:08 PM EXECUTIVE VP): Assessment: 18 year old male with metastatic [...] oximetry Assessment & Plan (08/15/2014 1:27 PM EXECUTIVE VP): Assessment: 18 year old male with metastatic [...] oximetry Assessment & Plan (08/15/2014 6:58 AM EXECUTIVE VP): Assessment: 18 year old male with diagnosis [...] I/Os Assessment & Plan (08/14/2014 11:45 AM EXECUTIVE VP): Assessment: 18 year old male with metastatic [...] oximetry Assessment & Plan (08/14/2014 7:12 AM EXECUTIVE VP): Assessment:18 year old male with diagnosis of [...] I/Os Assessment & Plan (08/13/2014 4:10 PM EXECUTIVE VP): Assessment: 18 year old male with metastatic [...] oximetry Assessment & Plan (08/13/2014 3:30 PM EXECUTIVE VP): Assessment:18 year old male with diagnosis of [...] I/Os Assessment & Plan (07/28/2014 9:29 AM EXECUTIVE VP): Assessment: 18 year old male with a [...] Negative Assessment & Plan (07/27/2014 11:25 AM EXECUTIVE VP): Assessment:18 year old male with recent diagnosis [...] PRN Assessment & Plan (07/27/2014 10:59 AM EXECUTIVE VP): Assessment: 18 year old male with a [...] Negative Assessment & Plan (07/26/2014 11:05 AM EXECUTIVE VP): Assessment: 18 year old male with a [...] Negative Assessment & Plan (07/26/2014 10:29 AM EXECUTIVE VP): Assessment:18 year old male with recent diagnosis [...] PRN Assessment & Plan (07/25/2014 10:18 AM EXECUTIVE VP): Assessment: 18 year old male with a [...] pending Assessment & Plan (07/25/2014 10:03 AM EXECUTIVE VP): Assessment:18 year old male with recent diagnosis [...] 1 Assessment & Plan (07/24/2014 12:01 PM EXECUTIVE VP): Assessment:18 year old male with recent diagnosis [...] PRN Assessment & Plan (07/24/2014 11:17 AM EXECUTIVE VP): Assessment: 18 year old male with a [...] confidentiality Assessment & Plan (07/23/2014 4:19 PM EXECUTIVE VP): Assessment:18 year old male with recent diagnosis [...] testing Assessment & Plan (07/17/2014 1:55 PM EXECUTIVE VP): Assessment: Miguel Guan is a 18yo M [...] on file Legal Sex Male 3:48 PM EXECUTIVE VP Gender Identity Not on file Sexual Orientation Not on file Last Filed Vital Signs Vital Sign Reading Time Taken Comments Blood Pressure 125/70 08/04/2021 3:18 AM EXECUTIVE VP Pulse 70 08/04/2021 3:18 AM EXECUTIVE VP Temperature 36.6 C (97.8 F) 08/04/2021 3:18 AM EXECUTIVE VP Respiratory Rate 18 08/04/2021 3:18 AM EXECUTIVE VP Oxygen Saturation 98% 08/04/2021 3:18 AM EXECUTIVE VP Inhaled Oxygen Concentration - - Weight 98.9 kg (218 lb) 08/03/2021 10:56 PM EXECUTIVE VP Height 167.6 cm (5' 6) 08/03/2021 10:56 PM EXECUTIVE VP Body Mass Index 35.19 08/03/2021 10:56 PM EXECUTIVE VP Plan of Treatment Health Maintenance Due Date Last Done Comments DTAP/TDAP/TD VACCINES (1 - Tdap) 2015 HEPATITIS B VACCINE (1 of 3 - 19+ 3-dose series) 2015 HPV VACCINE (1 - 3-dose SCDM series) 2023 DEPRESSION SCREENING 07/19/2024 COVID-19 VACCINE (1 - 2024-2 6 season) 2025 INFLUENZA VACCINE (#1) 2025 07/13/2014 [...] this topic Medical Devices Explanted Type Area Continuous Dryout Operator Helper Device Identifier Shelf Expiration Date Model / Serial / Lot Cath Dual Lumn Perm 36mm Implanted:Qty: 1 on 07/17/2014 by Marko Whitlock MD at [facility] Explanted:Qty: 1 on 11/05/2014 at [facility] Right: Neck [facility] Prodcuts 03/17/2017 [id number] / / [id number] Description:right internal j ugular Procedures Procedure Name Priority Date/Time Associated Diagnosis Comments HEPATITIS C ANTIBODY Routine 12/07/2017 10:29 AM CDT HIV-1 HIV-2 ANTIBODY + HIV P24 AG PANEL AM Draw 08/15/2014 4:02 AM EXECUTIVE VP Germ cell carcinoma of testicle from Last 3 Months or Most Recently Relevant to Health Maintenance Results * HEPATITIS C ANTIBODY (12/07/2017 10:29 AM CDT) Pathologist [facility] HCV Antibody Screen Non Reactive Non Reactive 12/07/2017 11:19 AM CDT [facility] HCV S/C Ratio 0.08 0.00 - 0.79 12/07/2017 11:19 AM T [facility] Comment: Pgfase-ou-okkbuy ratio (S/CO) <0.80: Non Reactive Blood BLOOD [...] l Result [facility] [address] [place] [address] * HIV-1 HIV-2 ANTIBODY + HIV P24 AG PANEL (08/15/2014 4:02 AM EXECUTIVE VP) [facility] HIV1/2 Ab + P24 Ag Non Reactive Non Reactive 08/16/2014 12:46 PM EXECUTIVE VP [facility] Blood BLOOD SPECIMEN / Unknown 08/15/2014 4:02 AM EXECUTIVE VP 08/15/2014 4:19 AM EXECUTIVE VP us Olivier Ventura MD LAB - CHEMISTRY ORDERABLES Final Result Performing Organization Address [facility]/ZIP Co de Phone Number [facility] [address] [place] [phone] from Last 3 Months or Most Recently Relevant to Health Maintenance Insurance [employer] MED[employer] [facility] Advance Directives * Full Code (Latest Code Status on File) Date Activated Date Inactivated Comments 12/06/2017 6:32 PM 12/08/2017 3:38 PM
--- OUTSIDE RECORDS SUMMARY | 2025-07-08 07:38 | XMS_ITS | Data Portability ---
Author Organization [place] [facility] [place] [facility] Address [address] [place] [place] [address] Assessment No assessment recorded. Plan of Treatment Reminders Order Date Submit Date Provider Last Modified By Organization Details Last Modified Time Details Appointments None recorded. Lab PPD (purified protein derivativ e), skin test 2024 025 MAR In-Office Order, Internal Use Only DO Not Attach Compendium DO Not Attach Compendium, Do Not Delete/merge, [id number] 18:39:31 Referral None recorded. Procedures None recorded. Surgeries None recorded. Imaging None recorded. Medication Orders Tubersol 5 tub. unit/0.1 mL intraderm al injection solution 2024 025 [email or web address] Not available 10:13:44 Patient TargetsNo targets recorded. Patient Instructions Encounter Date Encounter Id Patient Instructions Last Modified By Organization Details Last Modified Time 06/20/2025 [id number] A healthy lifestyle: care instructions Not available 06/20/2025 14:08:08 Return within 48 to 72 hours from now to have your test read by staff Not available 06/20/2025 14:14:39 Reason for Referral None Reported. Results Created Date Observation Date Name Description Value Unit Range Abnormal Flag Note LastModifiedBy Organization Detail LastModifiedTime 06/24/2006/24/2025 PPD (dotty fied prote in deriv ative ), skin test Result NOT READ Not Available In-Office Order Internal Use Only DO Not Attach Compendium DO Not Attach Compendium, Do Not Delete/merge, [id number] 06/20/2025 14:07:42 Result Notes None recorded. Medical Equipment None Reported. Allergies No known drug allergies Medications Name Sig Start Date Stop Date Status Note LastModified by Organization Details LastModified Time carvedilol 6.25 mg tablet TAKE 1/2 (ONE-HALF ) TABLET BY MOUTH TWICE DAILY WITH FOOD OR MEAL active Not Available Not Available No t Available Tubersol 5 tub. unit/0.1 mL intradermal injection solution Inject 5 units by intraderm al route. 2024 active Not Available Not Available Not Avai lable sulfamethox azole 800 mg-trimetho prim 160 mg tablet TAKE 1 TABLET BY MOUTH TWICE DAILY FOR 10 DAYS 06/20 completed Not Available Not Available Not Available metformin ER 500 mg tablet,exte nded release 24 hr TAKE 1 TABLET BY MOUTH ONCE DAILY active Not Available Not Available No t Available Vitals Date Recorded Body height Body mass index (BMI) Body weight Oxygen saturation Heart rate Body temperature Systolic And Diastolic Provider Name and Address Organization Details Last Updated DateTime 167.64 cm 39.1 kg/m2 057595. 75 g 98 % 96 /min 98.6 [degF] 118/78 mm[Hg] Michelle Garnett MA [place] - [facility] 13:22:44 Social History Question Answer Notes LastModified by Organizat ion Details LastModified Time Tobacco Smoking Status Never Smoker Michelle Garnett MA null, [place] - [facility] 06/20/2025 13:23:10 What Is Your Level Of Caffeine Consumption? None Information not available 06/20/2025 In The 14 Days Before Symptom Onset, Have You Had Close Contact With A Laboratory-confirm ed COVID-19 While That Case Was Ill? No Information n ot available 06/20/2025 In The 14 Days Before Symptom Onset, Have You Had Close Contact With A Person Who Is Under Investigation For COVID-19 While That Person Was Ill? No Information not available 06/20/2025 Have You Been To An Area Known To Be High Risk For COVID-19? No Information not available 06/20/2025 What Type Of Diet Are You Following? REGULAR Information n ot available 06/20/2025 What Was The Date Of Your Most Recent Tobacco Screening? 06/20/2025 Information not available 06/20/2025 What Is Your Relationship Status? Single Information not available 06/20/2025 Has Tobacco Cessation Counseling Been Provided? No Information not available 06/20/2025 Sex: Male Functional Status Question Answer Note LastModified by Organizat ion Details LastModified Time Do you use any illicit or recreational drugs? No Information not available 06/20/2025 Do you or have you ever used any other forms of tobacco or nicotine? No Information not available 06/20/2025 What is your level of alcohol consumption? None Information not available 06/20/2025 Are you able to care for yourself independently? Yes Information not available 06/20/2025 Mental Status Question Answer Note LastModified by Organization D etails LastModified Time Do you feel stressed (tense, restless, nervous, or anxious, or unable to sleep at night)? [id number] Information not available 06/20/2025 Family History Nothing Reported. Medical History No medical history recorded. Immunizations Vaccine Type Date Status Note Provider Nam e and Address Organization Details Recorded Time Tdap 8 completed Not Available [facility] 06/20/2025 12:56:37 meningococcal C conjugate 9 completed Not Available [facility] 06/20/2025 12:56:37 Tdap 9 completed Not Available [facility] 06/20/2025 12:56:37 Influenza, split virus, quadrivalent, PF 4 completed Not Available [facility] 06/20/2025 12:56:37 Tdap 7 completed Not Available [facility] 06/20/2025 12:56:37 Tdap 5 completed Not Available [facility] 06/20/2025 12:56:37 Past Encounters Encounter ID Performer Location Encounter Start Date Encounter Closed Date Diagnosis/Indication Diagnosis SNOMED-CT Code Diagnosis ICD10 Code Diagnosis IMO Codes Diagnosis Note [id number] LEONARD VILLASENOR MD [facility] [address] [place] [phone] 06/20/2025 12:55:29 06/25/2025 15:28:01 Obese class III 793425940 E66.813 E66.3 [id number] Tuberculos is screening status 693411967 Z11.1 [id number] History an d physical examination, annual for health maintenance 49410951 Z00.00 [id number] Health Concerns Section Related Observation LastModified by Organization Detai ls LastModified Time None Recorded Concern Status LastModified by Organization Details LastModified Time None Recorded Advance Directives Directive None Recorded Payers Insurance Date Sequence Insurance Name Policy Number Policy Weaver Covered Member ID Weaver Member ID Guarantor Name 06/25/2025 1 [employer] [place] - DOS ON OR AFTER 2020 (MEDICAID REPLACEMENT - HMO) Nael Frausto [id number] Nael Frausto 06/25/2025 1 *SELF PAY* Ri phillip Frausto Notes Date Note Type Note Provider Name and Address Organization Details Recorded Time 06/20/2025 text/html Pt is a 29 yo male who request tb screening and work physical SCOUT MELENDEZ NP Attn: [place], [address], [facility] [place] [facility] 06/20/2025 14:28:20
--- OUTSIDE RECORDS SUMMARY | 2025-07-08 07:38 | XMS_ITS ---
Author Organization [facility] Address [address] [place] [address] Care Team Providers Care Striper Name Role Phone Unavailable Primary Care Provider Unavailabl e Active Problems Patient Care Coordination No te Formatting of this note migh t be different from the original. *Nael's family needs a Azeri-speaking deaf interpreter for each visit* Nael's cell: [phone] Nael's father's cell at [phone] Patient has signed HIPAA release of information [...] 800 mg q6hr - Will transition from BROKE BEATER OPERATOR to oral oxycodone Access: PIV Assessment & [...] HD unstable, consider fluid bolus Neuro/Pain: -Dilaudid BROKE BEATER OPERATOR -150 basal, 150 push, 10 min lockout -Has pressed considerable number of times -wean basal to 100 as the etiology of the pain is likely inflammatory -Narcan drip BROKE BEATER OPERATOR -Motrin 800 mg PO q6 -optimize, consider [...] - Motrin 800 mg q6hr - Dilaudid BROKE BEATER OPERATOR with basal 200mcg and 100mcg bolus with 10 minute lockout, plan to wean BROKE BEATER OPERATOR today Access: PIV Assessment & Plan (12/07/2017 [...] site for erythema and tenderness Neuro/Pain: -Dilaudid BROKE BEATER OPERATOR -200 basal, 150 push, 10 min lockout -consider weaning basal if he doesn't press BROKE BEATER OPERATOR in an hour -Narcan drip BROKE BEATER OPERATOR -Motrin 800 mg PO q6 Endo: -Replesta [...] unstable) Assessment & Plan (09/07/2014 10:56 AM SENIOR PROGRAM ANALYST): Assessment Nael Frausto is a 18 y.o. [...] home. Assessment & Plan (09/05/2014 10:36 AM SENIOR PROGRAM ANALYST): Assessment Nael Frausto is a 18 y.o. 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 Assessment & Plan (08/18/2014 8:59 AM SENIOR PROGRAM ANALYST): Germ cell carcinoma of testicle Assessment: Nael [...] for pain/SALAZAR - Monitor I/Os Sofi Gilmore [place] [employer] Student, MS-3 Assessment & Plan (08/17/2014 6:32 PM SENIOR PROGRAM ANALYST): Assessment: 18 year old male with metastatic [...] oximetry Assessment & Plan (08/17/2014 7:02 AM SENIOR PROGRAM ANALYST): Assessment: 18 year old male with diagnosis [...] orders for neupogen prior to SC harvest ([employer] Infusion to see pt for training today) [...] I/Os Assessment & Plan (08/16/2014 1:08 PM SENIOR PROGRAM ANALYST): Assessment: 18 year old male with metastatic [...] oximetry Assessment & Plan (08/15/2014 1:27 PM SENIOR PROGRAM ANALYST): Assessment: 18 year old male with metastatic [...] oximetry Assessment & Plan (08/15/2014 6:58 AM SENIOR PROGRAM ANALYST): Assessment: 18 year old male with diagnosis [...] I/Os Assessment & Plan (08/14/2014 11:45 AM SENIOR PROGRAM ANALYST): Assessment: 18 year old male with metastatic [...] oximetry Assessment & Plan (08/14/2014 7:12 AM SENIOR PROGRAM ANALYST): Assessment:18 year old male with diagnosis of [...] I/Os Assessment & Plan (08/13/2014 4:10 PM SENIOR PROGRAM ANALYST): Assessment: 18 year old male with metastatic [...] oximetry Assessment & Plan (08/13/2014 3:30 PM SENIOR PROGRAM ANALYST): Assessment:18 year old male with diagnosis of [...] I/Os Assessment & Plan (07/28/2014 9:29 AM SENIOR PROGRAM ANALYST): Assessment: 18 year old male with a [...] Negative Assessment & Plan (07/27/2014 11:25 AM SENIOR PROGRAM ANALYST): Assessment:18 year old male with recent diagnosis [...] PRN Assessment & Plan (07/27/2014 10:59 AM SENIOR PROGRAM ANALYST): Assessment: 18 year old male with a [...] Negative Assessment & Plan (07/26/2014 11:05 AM SENIOR PROGRAM ANALYST): Assessment: 18 year old male with a [...] Negative Assessment & Plan (07/26/2014 10:29 AM SENIOR PROGRAM ANALYST): Assessment:18 year old male with recent diagnosis [...] PRN Assessment & Plan (07/25/2014 10:18 AM SENIOR PROGRAM ANALYST): Assessment: 18 year old male with a [...] pending Assessment & Plan (07/25/2014 10:03 AM SENIOR PROGRAM ANALYST): Assessment:18 year old male with recent diagnosis [...] 1 Assessment & Plan (07/24/2014 12:01 PM SENIOR PROGRAM ANALYST): Assessment:18 year old male with recent diagnosis [...] PRN Assessment & Plan (07/24/2014 11:17 AM SENIOR PROGRAM ANALYST): Assessment: 18 year old male with a [...] confidentiality Assessment & Plan (07/23/2014 4:19 PM SENIOR PROGRAM ANALYST): Assessment:18 year old male with recent diagnosis [...] testing Assessment & Plan (07/17/2014 1:55 PM SENIOR PROGRAM ANALYST): Assessment: Nael Frausto is a 18yo M [...]
--- OUTSIDE RECORDS SUMMARY | 2025-07-08 07:39 | XMS_ITS | Continuity of Care Document ---
Author Organization [facility] Address [address] [place] [phone] Assessment No assessment recorded. Plan of Treatment Reminders Order Date Submit Date Provider Last Modified By Organization Details Last Modified Time Details Appointments None recorded. Lab PPD (purified protein derivativ e), skin test 2024 025 MAR In-Office Order, Internal Use Only DO Not Attach Compendium DO Not Attach Compendium, Do Not Delete/merge, [id number] 18:39:31 Referral None recorded. Procedures None recorded. Surgeries None recorded. Imaging None recorded. Medication Orders Tubersol 5 tub. unit/0.1 mL intraderm al injection solution 2024 025 [email or web address] Not available 10:13:44 Patient TargetsNo targets recorded. Patient Instructions Encounter Date Encounter Id Patient Instructions Last Modified By Organization Details Last Modified Time 06/20/2025 [id number] A healthy lifestyle: care instructions Not available 06/20/2025 14:08:08 Return within 48 to 72 hours from now to have your test read by staff Not available 06/20/2025 14:14:39 Reason for Referral None Reported. Results Created Date Observation Date Name Description Value Unit Range Abnormal Flag Note LastModifiedBy Organization Detail LastModifiedTime 06/24/20 25 06/24/2025 PPD (dotty fied prote in deriv ative ), skin test Result NOT READ Not Available In-Office Order Internal Use Only DO Not Attach Compendium DO Not Attach Compendium, Do Not Delete/merge, [id number] 06/20/2025 14:07:42 Result Notes None recorded. Medical [...] Last Updated DateTime 167.64 cm 39.1 kg/m2 250055. 75 g 98 % 96 /min 98.6 [degF] 118/78 mm[Hg] Michelle Garnett MA [facility] 13:22:44 Social History Question Answer Notes LastModified by Organizat ion Details LastModified Time Tobacco Smoking Status Never Smoker Michelle Garnett MA null, [facility] 06/20/2025 13:23:10 What Is Your [...] anxious, or unable to sleep at night)? [id number] Information not available 06/20/2025 Family History Nothing Reported. Medical History No medical history recorded. Immunizations Vaccine Type Date Status Note Provider Nam e and Address Organization Details Recorded Time Tdap 8 completed Not Available [facility] 06/20/2025 12:56:37 meningococcal C conjugate 9 completed Not Available [facility] 06/20/2025 12:56:37 Tdap 9 completed Not Available [facility] 06/20/2025 12:56:37 Influenza, split virus, quadrivalent, PF 4 completed Not Available [facility] 06/20/2025 12:56:37 Tdap 7 completed Not Available [facility] 06/20/2025 12:56:37 Tdap 5 completed Not Available [facility] 06/20/2025 12:56:37 Past Encounters Encounter ID Performer Location Encounter Start Date Encounter Closed Date Diagnosis/Indication Diagnosis SNOMED-CT Code Diagnosis ICD10 Code Diagnosis IMO Codes Diagnosis Note [id number] LEONARD VILLASENOR MD [facility] [address] [place] [address] 06/20/2025 12:55:29 06/25/2025 15:28:01 Obese class III 369535107 E66.813 E66.3 5031214089 Tuberculos is screening status 743086362 Z11.1 619627 History an d physical examination, annual for health maintenance 60321552 Z00.00 100448 Health Concerns Section Related Observation LastModified by Organization Detai ls LastModified Time None Recorded Concern Status LastModified by Organization Details LastModified Time None Recorded Payers Encounter Date Sequence Insurance Name Policy Number Policy Weaver Covered Member ID Weaver Member ID Guarantor Name 06/20/2025 1 *SELF PAY* Gaye Frausto Notes Date Note Type Note Provider Name and Address Organization Details Recorded Time 06/20/2025 text/html Pt is a 29 yo male who request tb screening and work physical SCOUT MELENDEZ NP Attn: Accounting,[address] [place], [address], [facility] - [facility] 06/20/2025 14:28:20
--- OUTSIDE RECORDS SUMMARY | 2025-07-08 07:39 | XMS_ITS | Data Portability ---
Author Organization [facility], Main Office Address [address] [place] [address] Assessment No assessment recorded. Plan of Treatment Reminders Order Date Submit Date Provider Last Modified By Organization Details Last Modified Time Details Appointments None recorded. Lab glycohemo globin, total, blood [address] (Lab), [address] [place], [address], 3 16:34:26 T4, free, serum [address] (Lab), [address] [place], [address], 3 16:34:27 TSH, serum or plasma [address] (Lab), [address] [place], [address], 3 16:34:27 lipid panel, serum [address] (Lab), [address] [place], [address], 3 16:34:27 CMP, serum or plasma [address] (Lab), [address] [place], [address], 3 16:34:27 CK (creatine kinase), total, serum [address] (Lab), [address] [place], [address], 3 16:34:27 PSA, serum or plasma [address] (Lab), [address] [place], [address], 3 16:34:26 vitamin B12 + folate, serum or blood [address] (Lab), [address] [place], [address], 3 16:34:27 vitamin D, 25-hydrox y, total, serum [address] (Lab), [address] [place], [address], 3 16:34:28 magnesium , serum or plasma [address] (Lab), [address] [place], [address], 3 16:34:28 Referral None recorded. Procedures None recorded. Surgeries None recorded. Imaging None recorded. Medication Orders None recorded. Patient TargetsNo targets recorded. Patient InstructionsNo instructions recorded. Reason for Referral None Reported. 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 Active 2022 JOSE Bailey [address], [place], [address], [facility] 3 09:27:36 Malignant neoplasm of testis 592589767 Active 2022 removed , chemothera py 2014 JOSE Bailey [address], [place], [address], [facility] 3 09:29:08 Screening for malignant neoplasm of prostate Active 2022 JOSE Bailey [address], [place], [address], [facility] 3 09:30:40 Hyperlipid emia screening Active 2022 JOSE Bailey [address], [place], [address], [facility] 3 09:31:31 Obese 229244241 Active 2022 JOSE Bailey [address], [place], [address], [facility] 3 09:31:49 At increased risk of nutritiona l deficit 177879897 Active 2022 JOSE Bailey [address], [place], [address], [facility] 3 09:33:39 Problem Notes None recorded. Medical Equipment None Reported. Allergies No known drug allergies Medications Not known to be on any medication Vitals Date Recorded Body weight Body mass index (BMI) Body height Body temperature Heart rate Oxygen saturation Systolic And Diastolic Provider Name and Address Organization Details Last Updated DateTime 3 243993. 06 g 36.8 kg/m2 167.64 cm 97.7 [degF] 91 /min 98 % 128/88 mm[Hg] Patria Arteaga MA [place] [facility] 3 09:18:49 Date Recorded Body height Systolic And Diastolic Provider Name and Address Organization Details Last Updated DateTime 04/15/2023 167.64 cm 118/82 mm[Hg] Patria Arteaga MA [facility] 04/15/2023 15:47:46 Social History Question Answer Notes LastModified by Organizat ion Details LastModified Time What Is Your Level Of Caffeine Consumption? Occasional [email or web address] Information not available 04/02/2023 Do You Use Your Seat Belt Or Car Seat Routinely? Yes [email or web address] Information not available 04/02/2023 Do You Participate In Social Media? Yes [email or web address] Information not available 04/02/2023 Sex: Unknown Functional Status Question Answer Note LastModified by Organizat ion Details LastModified Time Do you use any illicit or recreational drugs? No [email or web address] Information not available 04/02/2023 What is your level of alcohol consumption? Moderate Information not available 04/02/2023 Mental Status Question Answer Note LastModified by Organizat ion Details LastModified Time Do you feel stressed (tense, restless, nervous, or anxious, or unable to sleep at night)? [id number] Trouble sleeping at night often [email or web address] Information not available 04/02/2023 Family History Relationship Description Onset Age of this Age Resolved Age Notes LastModified by Organization Details LastModified Time Father No current problems or disability [email or web address] Not available 09:19:03 Mother No current problems or disability [email or web address] Not available 09:19:03 Medical History No medical history recorded. Past Encounters Encounter ID Performer Location Encounter Start Date Encounter Closed Date Diagnosis/Indication Diagnosis SNOMED-CT Code Diagnosis ICD10 Code Diagnosis IMO Codes Diagnosis Note [id number] Cesario Guallpa MD [facility] [address] [place] [address] 04/02/2023 09:06:34 04/02/2023 09:37:35 Screening for malignant neoplasm of prostate 750771246 Z12.5 Hyperlipid emia screening 891944727 Z13.220 Obese 734438409 E66.9 At [facility] risk of nutritional deficit 770467719 Z91.89 [id number] Cesario Guallpa MD [facility] [address] [place] [address] 04/15/2023 15:38:44 04/17/2023 04:06:35 Malignant neoplasm of testis 913177787 C62.90 Lipoma of lower back 307 615987 D17.1 Health Concerns Section Related Observation LastModified by Organization Detai ls LastModified Time None Recorded Concern Status LastModified by Organization Details LastModified Time None Recorded Advance Directives Directive None Recorded Payers Insurance Date Sequence Insurance Name Policy Number Policy Weaver Covered Member ID Weaver Member ID Guarantor Name 04/26/2023 1 [employer] BET[employer] [place] - DOS ON OR AFTER 2020 (MEDICAID REPLACEMENT - HMO) Nael Frausto [id number] Nael Frausto Notes Date Note Type Note Provider Name and Address Organization Details Recorded Time 04/02/2023 text/html ROS as noted in the HPI 27 y/o Here to establish care JOSE Bailey [address], [place], [address], [facility] 04/04/2023 21:44:45 04/15/2023 text/html ROS as noted in the HPI 27 y/o with history of testicular cancer . JOSE Bailey [address], [place], [address], [facility] 04/16/2023 16:35:18
[2025-07-08 07:54] VITALS: BP 134/80; PULSE 124; RESP 14; TEMP 36.9; O2SAT 98
[2025-07-08 08:36] LABS: Influenza A QL RT-PCR Positive (Negative); Influenza B QL RT-PCR Negative (Negative); RSV RNA, RT-PCR Negative (Negative); SARS-CoV-2 RNA PCR Negative (Negative)
[2025-07-08 10:13] VITALS: BP 125/82; PULSE 111; RESP 18; O2SAT 99
--- NOTE | 2025-07-08 10:34 | ED.FEVER ---
HPI - Fever General Chief Complaint: Fever Stated Complaint: fever last night of 102, cough, n/v Time Seen by Provider: 07/08/25 10:31 Source: patient Mode of arrival: ambulatory Limitations: no limitations History of Present Illness HPI Narrative: This is a 29-year-old male who presents to the ED for flu-like symptoms. Patient states over the last 2 days, he has been having a cough productive of clear sputum with fevers as 102. He tried taking ibuprofen for this with some mild improvement. He also reports a headache. He also reports nausea and intermittent vomiting. Denies abdominal pain. No known sick contacts. Related Data Allergies Allergy/AdvReac Type Severity Reaction Status Date / Time No Known Allergies Allergy Verified 07/08/25 07:56 Review of Systems Review of Systems: All systems reviewed & are unremarkable except as noted in HPI and below PMFSH Past Medical History Medical History Coffee ground emesis Esophagitis Alcoholic hepatitis Testicular cancer Social History Social History Smoking status: Never smoker Alcohol intake: current Drinks per week: 16 Substance use: never Substance use type: does not use Lack of Transportation: No Lack of Food: Never True Current Housing: I Have Housing Concerned About Future Housing: No Difficulty Paying Gas/Electric Bills: No Difficulty Paying for Meds: No Currently Unemployed: No Education: Decline to Answer Difficulty w/ Childcare or Family Care: No Spiritual care concerns: No Exam Narrative: APPEARANCE: No acute distress, nontoxic, resting in bed EYES: EOMI HEENT: Normocephalic, atraumatic, OMM RESPIRATORY: No respiratory distress Clear to auscultation bilaterally with no rhonchi wheezing or rales. CARDIOVASCULAR: Regular rate and rhythm without murmurs rubs or gallops. ABDOMINAL: Soft, nontender, nondistended, no rebound or guarding MUSCULOSKELETAl: Moves all extremities. No clubbing, cyanosis or edema. NEURO: Awake and alert. Following commands, speech normal, no focal deficits SKIN:: Warm, dry. No rashes lesions or abrasions PSYCHIATRIC: Normal affect/mood, Course Vital Signs Vital signs: Vital Signs Temperature 98.4 F 07/08/25 07:54 Pulse Rate 124 H 07/08/25 07:54 Respiratory Rate 14 07/08/25 07:54 Blood Pressure 134/80 07/08/25 07:54 Pulse Oximetry 98 07/08/25 07:54 Oxygen Delivery Room Air 07/08/25 07:54 Temperature 98.4 F 07/08/25 07:54 Pulse Rate 111 H 07/08/25 10:13 Respiratory Rate 18 07/08/25 10:13 Blood Pressure 125/82 07/08/25 10:13 Pulse Oximetry 100 07/08/25 10:53 Oxygen Delivery Room Air 07/08/25 10:53 MDM MDM Narrative Medical decision making narrative: 29-year-old male Presenting for flu-like symptoms. On initial evaluation patient was in no acute distress afebrile, hemodynamic stable. Differentials include but are not limited to: Viral syndrome, strep pharyngitis, viral pharyngitis, sinusitis, laryngitis, INVENTORY COORDINATOR, RPA Notable exam findings: Nasal congestion, heart and lungs clear I personally reviewed the patient's lab result. Notable lab findings: Positive for influenza A Patient was deemed appropriate for discharge at this time. Patient was given a prescription for Tamiflu, Zofran. Patient was advised follow-up with their PCP in the next week for re-evaluation. Patient was agreeable to this plan. Given strict return precautions. Differential Diagnosis Differential Diagnosis: Viral syndrome, strep pharyngitis, viral pharyngitis, sinusitis, laryngitis, INVENTORY COORDINATOR, RPA Lab Data Labs: Lab Results 07/08/25 Range/Units 07:53 Influenza A (RT-PCR) Positive A (Negative) Influenza B (RT-PCR) Negative (Negative) RSV (RT-PCR) Negative (Negative) SARS-CoV-2 RNA (RT-PCR) Negative (Negative) Discharge Plan Discharge Clinical Impression: Influenza A Patient Disposition: Home Condition: Stable Instructions: Antibiotic Form, Influenza (ED) Additional Instructions: You tested positive for the flu. Take Tamiflu and Zofran as prescribed. You may take Tylenol and ibuprofen for fever discomfort. Return to the ED for any new or worsening symptoms. For pain, discomfort or temperature greater than or equal to 100.8 ?F please alternate the following 2 medications as needed. First medication- acetaminophen/Tylenol- 1000mg every 6-8 hours as needed for above indications. Second medication- ibuprofen/Motrin-600mg every 6-8 hours as needed for above indication. Patient Language: Brazilian Prescriptions: New oseltamivir [Tamiflu] 75 mg capsule 75 mg PO Q12H 5 Days Qty: 10 0RF ondansetron 4 mg tablet,disintegrating 4 mg PO Q8H PRN (Reason: nausea and vomiting) Qty: 12 0RF No Action carvedilol 6.25 mg tablet 3.125 mg PO BID Qty: 60 0RF Rx Instructions: must administer with a meal/food metformin [Glucophage XR] 500 mg tablet extended release 24 hr 500 mg PO DAILY Qty: 30 0RF lorazepam 1 mg tablet 1 mg PO Q8H PRN (Reason: alcohol withdrawal) 7 Days Qty: 11 0RF Rx Instructions: Take 1 tab three times a day for 1 day, then twice a day for 2 days, daily for 2 days, then daily as needed for 3 days (DME) blood-glucose meter Misc See Rx Instructions .Route Qty: 1 0RF Rx Instructions: As directed--as covered by insurance pantoprazole 40 mg tablet,delayed release (DR/EC) 40 mg PO QAM Qty: 90 0RF (DME) lancing device with lancets [Microlet Next Lancing Device] Kit See Rx Instructions .Route Qty: 1 11RF Rx Instructions: As directed (DME) lancets [Microlet Lancet] Misc See Rx Instructions .Route Qty: 100 11RF Rx Instructions: For checking blood sugar daily and as needed (DME) Contour Plus Test Strip Strip See Rx Instructions .Route Qty: 50 11RF Rx Instructions: For checking blood sugar daily and as needed Follow-up/Referrals: PHYSICIAN,CHEMICAL ENGRAVER [Primary Care Provider, Internal Medicine] Atilio Zee MD [Physician, Family Practice]
--- OUTSIDE RECORDS SUMMARY | 2025-07-08 10:49 | XMS_ITS | Clinical Summary ---
Author Organization [facility] [employer] Address [address] [place] [address] Care Team Providers Care Legend Maker Name Role Phone Unavailable Primary Care Provider Unavailabl e Source Comments [facility] [employer],non-owned Affiliates and Associated Physician Practices is amultiple site organization consisting of ambulatory clinics and hospital sitesin [place], [place], [place] and [place]. This disclosure is being madepursuant to the Care Everywhere program and may not contain all information available regarding this patient. Last updated 18.myVBO [employer] Allergies No known active allergies Medications * [...] from the original. *Miguel's family needs a Yoruba-speaking route specialist for each visit* Miguel's cell: [phone] Miguel's father's cell at [phone] Patient has signed HIPAA release of information [...] 800 mg q6hr - Will transition from ASH CONVEYOR OPERATOR to oral oxycodone Access: PIV Assessment [...] HD unstable, consider fluid bolus Neuro/Pain: -Dilaudid ASH CONVEYOR OPERATOR -150 basal, 150 push, 10 min lockout -Has pressed considerable number of times -wean basal to 100 as the etiology of the pain is likely inflammatory -Narcan drip ASH CONVEYOR OPERATOR -Motrin 800 mg PO q6 -optimize, [...] - Motrin 800 mg q6hr - Dilaudid ASH CONVEYOR OPERATOR with basal 200mcg and 100mcg bolus with 10 minute lockout, plan to wean ASH CONVEYOR OPERATOR today Access: PIV Assessment & Plan [...] site for erythema and tenderness Neuro/Pain: -Dilaudid ASH CONVEYOR OPERATOR -200 basal, 150 push, 10 min lockout -consider weaning basal if he doesn't press ASH CONVEYOR OPERATOR in an hour -Narcan drip ASH CONVEYOR OPERATOR -Motrin 800 mg PO q6 Endo: -Replesta 150,000 u once Assessment & Plan (12/07/2017 12:38 AM CDT): Assessment: Migeul is a 22 y.o. history of germ [...] unstable) Assessment & Plan (09/07/2014 10:56 AM PUBLIC SAFETY POLICE): Assessment Miguel Guan is a 18 y.o. [...] home. Assessment & Plan (09/05/2014 10:36 AM PUBLIC SAFETY POLICE): Assessment Miguel Guan is a 18 y.o. 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 Assessment & Plan (08/18/2014 8:59 AM PUBLIC SAFETY POLICE): Germ cell carcinoma of testicle Assessment: Miguel [...] for pain/SALAZAR - Monitor I/Os Sofi Mando [employer] Medical Student, MS-3 Assessment & Plan (08/17/2014 6:32 PM PUBLIC SAFETY POLICE): Assessment: 18 year old male with metastatic [...] oximetry Assessment & Plan (08/17/2014 7:02 AM PUBLIC SAFETY POLICE): Assessment: 18 year old male with diagnosis [...] I/Os Assessment & Plan (08/16/2014 1:08 PM PUBLIC SAFETY POLICE): Assessment: 18 year old male with metastatic [...] oximetry Assessment & Plan (08/15/2014 1:27 PM PUBLIC SAFETY POLICE): Assessment: 18 year old male with metastatic [...] oximetry Assessment & Plan (08/15/2014 6:58 AM PUBLIC SAFETY POLICE): Assessment: 18 year old male with diagnosis [...] I/Os Assessment & Plan (08/14/2014 11:45 AM PUBLIC SAFETY POLICE): Assessment: 18 year old male with metastatic [...] oximetry Assessment & Plan (08/14/2014 7:12 AM PUBLIC SAFETY POLICE): Assessment:18 year old male with diagnosis of [...] I/Os Assessment & Plan (08/13/2014 4:10 PM PUBLIC SAFETY POLICE): Assessment: 18 year old male with metastatic [...] oximetry Assessment & Plan (08/13/2014 3:30 PM PUBLIC SAFETY POLICE): Assessment:18 year old male with diagnosis of [...] I/Os Assessment & Plan (07/28/2014 9:29 AM PUBLIC SAFETY POLICE): Assessment: 18 year old male with a [...] Negative Assessment & Plan (07/27/2014 11:25 AM PUBLIC SAFETY POLICE): Assessment:18 year old male with recent diagnosis [...] PRN Assessment & Plan (07/27/2014 10:59 AM PUBLIC SAFETY POLICE): Assessment: 18 year old male with a [...] Negative Assessment & Plan (07/26/2014 11:05 AM PUBLIC SAFETY POLICE): Assessment: 18 year old male with a [...] Negative Assessment & Plan (07/26/2014 10:29 AM PUBLIC SAFETY POLICE): Assessment:18 year old male with recent diagnosis [...] PRN Assessment & Plan (07/25/2014 10:18 AM PUBLIC SAFETY POLICE): Assessment: 18 year old male with a [...] pending Assessment & Plan (07/25/2014 10:03 AM PUBLIC SAFETY POLICE): Assessment:18 year old male with recent diagnosis [...] 1 Assessment & Plan (07/24/2014 12:01 PM PUBLIC SAFETY POLICE): Assessment:18 year old male with recent diagnosis [...] PRN Assessment & Plan (07/24/2014 11:17 AM PUBLIC SAFETY POLICE): Assessment: 18 year old male with a [...] confidentiality Assessment & Plan (07/23/2014 4:19 PM PUBLIC SAFETY POLICE): Assessment:18 year old male with recent diagnosis [...] testing Assessment & Plan (07/17/2014 1:55 PM PUBLIC SAFETY POLICE): Assessment: Miguel Guan is a 18yo M [...] on file Legal Sex Male 3:48 PM PUBLIC SAFETY POLICE Gender Identity Not on file Sexual Orientation Not on file Last Filed Vital Signs Vital Sign Reading Time Taken Comments Blood Pressure 125/70 08/04/2021 3:18 AM PUBLIC SAFETY POLICE Pulse 70 08/04/2021 3:18 AM PUBLIC SAF[employer]Y POLICE Temperature 36.6 C (97.8 F) 08/04/2021 3:18 AM PUBLIC SAF[employer]Y POLICE Respiratory Rate 18 08/04/2021 3:18 AM PUBLIC SAFETY POLICE Oxygen Saturation 98% 08/04/2021 3:18 AM PUBLIC SAFETY POLICE Inhaled Oxygen Concentration - - Weight 98.9 kg (218 lb) 08/03/2021 10:56 PM PUBLIC SAFETY POLICE Height 167.6 cm (5' 6) 08/03/2021 10:56 PM PUBLIC SAFETY POLICE Body Mass Index 35.19 08/03/2021 10:56 PM PUBLIC SAF[employer]Y POLICE Plan of Treatment Health Maintenance Due Date [...] this topic Medical Devices Explanted Type Area Drum Sealer Device Identifier Shelf Expiration Date Model / Serial / Lot Cath Dual Lumn Perm 36mm Implanted:Qty: 1 on 07/17/2014 by Marko Whitlock MD at [facility] Explanted:Qty: 1 on 11/05/2014 at [facility] Right: Neck [facility] Prodcuts 03/17/2017 [id number] / / [id number] Description:right internal j ugular Procedures Procedure Name Priority Date/Time Associated Diagnosis Comments HEPATITIS C ANTIBODY Routine 12/07/2017 10:29 AM CDT HIV-1 HIV-2 ANTIBODY + HIV P24 AG PANEL AM Draw 08/15/2014 4:02 AM PUBLIC SAF[employer]Y POLICE Germ cell carcinoma of testicle from Last 3 Months or Most Recently Relevant to Health Maintenance Results * HEPATITIS C ANTIBODY (12/07/2017 10:29 AM CDT) Pathologist [facility] [place] HCV Antibody Screen Non Reactive Non Reactive 12/07/2017 11:19 AM CDT [facility] HCV S/C Ratio 0.08 0.00 - 0.79 12/07/2017 11:19 AM T [facility] Comment: Inlylz-pg-lrmnwp ratio (S/CO) <0.80: Non Reactive Blood BLOOD SPECIMEN / Unknown Lab Venipuncture / Unknown 12/07/2017 10:29 AM CDT 12/07/2017 10:33 AM CDT Narrative [facility] - 12/07/2017 11:19 AM CDT Non Reactive - Antibodies to Hepatitis C virus (HCV) were not detected, result does not exclude early acute HCV infection. us Diamond Davenport MD LAB - CHEMISTRY ORDERABLES Miya l Result [facility] [address] [place] [address] * HIV-1 HIV-2 ANTIBODY + HIV P24 AG PANEL (08/15/2014 4:02 AM PUBLIC SAFETY POLICE) [facility] HIV1/2 Ab + P24 Ag Non Reactive Non Reactive 08/16/2014 12:46 PM PUBLIC SAFETY POLICE [facility] Blood BLOOD SPECIMEN / Unknown 08/15/2014 4:02 AM PUBLIC SAFETY POLICE 08/15/2014 4:19 AM PUBLIC SAFETY POLICE us Olivier Ventura MD LAB - CHEMISTRY ORDERABLES Final Result Performing Organization Address [facility]/ZIP Co de Phone Number [facility] [address] [place] [phone] from Last 3 Months or Most Recently Relevant to Health Maintenance Insurance [employer] MEDICA[employer] [facility] Advance Directives * Full Code (Latest Code Status on File) Date Activated Date Inactivated Comments 12/06/2017 6:32 PM 12/08/2017 3:38 PM
--- OUTSIDE RECORDS SUMMARY | 2025-07-08 10:50 | XMS_ITS ---
Author Organization [facility] Address [address] [place] [address] Care Team Providers Care Arc Cutter Plasma Arc Name Role Phone Unavailable Primary Care Provider Unavailabl e Active Problems Patient Care Coordination No te Formatting of this note migh t be different from the original. *Nael's family needs a Urdu-speaking reconciliation analyst for each visit* Nael's cell: [phone] Nael's father's cell at [phone] Patient has signed HIPAA release of information [...] 800 mg q6hr - Will transition from TAFE REGISTRAR to oral oxycodone Access: PIV Assessment & [...] HD unstable, consider fluid bolus Neuro/Pain: -Dilaudid TAFE REGISTRAR -150 basal, 150 push, 10 min lockout -Has pressed considerable number of times -wean basal to 100 as the etiology of the pain is likely inflammatory -Narcan drip TAFE REGISTRAR -Motrin 800 mg PO q6 -optimize, consider [...] - Motrin 800 mg q6hr - Dilaudid TAFE REGISTRAR with basal 200mcg and 100mcg bolus with 10 minute lockout, plan to wean TAFE REGISTRAR today Access: PIV Assessment & Plan (12/07/2017 [...] site for erythema and tenderness Neuro/Pain: -Dilaudid TAFE REGISTRAR -200 basal, 150 push, 10 min lockout -consider weaning basal if he doesn't press TAFE REGISTRAR in an hour -Narcan drip TAFE REGISTRAR -Motrin 800 mg PO q6 Endo: -Replesta [...] unstable) Assessment & Plan (09/07/2014 10:56 AM INSTALLATION AND REPAIR TECHNICIAN): Assessment Nael Frausto is a 18 y.o. [...] home. Assessment & Plan (09/05/2014 10:36 AM INSTALLATION AND REPAIR TECHNICIAN): Assessment Nael Frausto is a 18 y.o. 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 Assessment & Plan (08/18/2014 8:59 AM INSTALLATION AND REPAIR TECHNICIAN): Germ cell carcinoma of testicle Assessment: Nael [...] for pain/SALAZAR - Monitor I/Os Sofi Gilmore [place] Medical Student, MS-3 Assessment & Plan (08/17/2014 6:32 PM INSTALLATION AND REPAIR TECHNICIAN): Assessment: 18 year old male with metastatic [...] oximetry Assessment & Plan (08/17/2014 7:02 AM INSTALLATION AND REPAIR TECHNICIAN): Assessment: 18 year old male with diagnosis [...] orders for neupogen prior to SC harvest ([employer] Infusion to see pt for training today) [...] I/Os Assessment & Plan (08/16/2014 1:08 PM INSTALLATION AND REPAIR TECHNICIAN): Assessment: 18 year old male with metastatic [...] oximetry Assessment & Plan (08/15/2014 1:27 PM INSTALLATION AND REPAIR TECHNICIAN): Assessment: 18 year old male with metastatic [...] oximetry Assessment & Plan (08/15/2014 6:58 AM INSTALLATION AND REPAIR TECHNICIAN): Assessment: 18 year old male with diagnosis [...] I/Os Assessment & Plan (08/14/2014 11:45 AM INSTALLATION AND REPAIR TECHNICIAN): Assessment: 18 year old male with metastatic [...] oximetry Assessment & Plan (08/14/2014 7:12 AM INSTALLATION AND REPAIR TECHNICIAN): Assessment:18 year old male with diagnosis of [...] I/Os Assessment & Plan (08/13/2014 4:10 PM INSTALLATION AND REPAIR TECHNICIAN): Assessment: 18 year old male with metastatic [...] oximetry Assessment & Plan (08/13/2014 3:30 PM INSTALLATION AND REPAIR TECHNICIAN): Assessment:18 year old male with diagnosis of [...] I/Os Assessment & Plan (07/28/2014 9:29 AM INSTALLATION AND REPAIR TECHNICIAN): Assessment: 18 year old male with a [...] Negative Assessment & Plan (07/27/2014 11:25 AM INSTALLATION AND REPAIR TECHNICIAN): Assessment:18 year old male with recent diagnosis [...] PRN Assessment & Plan (07/27/2014 10:59 AM INSTALLATION AND REPAIR TECHNICIAN): Assessment: 18 year old male with a [...] Negative Assessment & Plan (07/26/2014 11:05 AM INSTALLATION AND REPAIR TECHNICIAN): Assessment: 18 year old male with a [...] Negative Assessment & Plan (07/26/2014 10:29 AM INSTALLATION AND REPAIR TECHNICIAN): Assessment:18 year old male with recent diagnosis [...] PRN Assessment & Plan (07/25/2014 10:18 AM INSTALLATION AND REPAIR TECHNICIAN): Assessment: 18 year old male with a [...] pending Assessment & Plan (07/25/2014 10:03 AM INSTALLATION AND REPAIR TECHNICIAN): Assessment:18 year old male with recent diagnosis [...] 1 Assessment & Plan (07/24/2014 12:01 PM INSTALLATION AND REPAIR TECHNICIAN): Assessment:18 year old male with recent diagnosis [...] PRN Assessment & Plan (07/24/2014 11:17 AM INSTALLATION AND REPAIR TECHNICIAN): Assessment: 18 year old male with a [...] confidentiality Assessment & Plan (07/23/2014 4:19 PM INSTALLATION AND REPAIR TECHNICIAN): Assessment:18 year old male with recent diagnosis [...] testing Assessment & Plan (07/17/2014 1:55 PM INSTALLATION AND REPAIR TECHNICIAN): Assessment: Nael Frausto is a 18yo M [...]
[2025-07-08 10:53] VITALS: O2SAT 100
== END 2025-07-08 11:00 | disposition home or self-care (01) ==
LOC: ANHED 10:48
PROVIDERS: Family Medicine; Emergency Provider Student in an Organized Health Care Education/Training Program
DX: J10.1 Influenza due to other identified influenza virus with other respiratory manifestations (principal); Z20.822 Contact with and (suspected) exposure to COVID-19
CPT/HCPCS: 87637; 99283